=== PATIENT | female | born 1960 | race Caucasian/White ===

== ENCOUNTER 2017-08-27 02:35 | Inpatient (IN) ==
[2017-08-27] MEDS ORDERED: Ipratropium/Albuterol Neb 3 ML IH ONE (02:42)
[2017-08-27 03:02] LABS: Basophils # 0.1 K/mcL (0.0-0.2); Basophils % 0.7 %; Eosinophils # 0.2 K/mcL (0.0-0.6); Eosinophils % 2.1 %; Hematocrit 29.7 % (35.3-44.9); Hemoglobin 9.7 g/dL (11.5-15.4); Lymphocytes # 2.7 K/mcL (0.6-4.6); Lymphocytes % 27.4 %; Mean Corpuscular HGB Conc 32.7 g/dL (31.6-35.5); Mean Corpuscular Hemoglobin 30.4 pg (28.0-33.3); Mean Corpuscular Volume 93.1 fL (83.0-100.0); Mean Platelet Volume 11.4 fL (9.4-12.4); Monocytes # 1.4 K/mcL (0.0-1.3); Monocytes % 13.7 %; Neutrophils # 5.5 K/mcL (1.6-8.9); Platelet Count 108 K/mcL (140-400); Red Blood Count 3.19 M/mcL (3.82-4.97); Red Cell Distribution Width 15.9 % (11.5-14.5); Segmented Neutrophils % 55.1 %
[2017-08-27 03:23] LABS: Bilirubin,Urine Moderate (Negative); Blood,Urine Small (Negative); Clarity,Urine Turbid (Clear); Color,Urine Orange (Yellow); Glucose,Urine (UA) Normal (Normal); Ketones,Urine Trace mg/dL (Negative); Leukocyte Esterase,Urine Moderate (Negative); Nitrite,Urine Negative (Negative); PH,Urine 5.5 pH Units (5.0-8.0); Protein,Urine Trace mg/dL (Neg-Trace)
[2017-08-27 03:25] LABS: Bacteria,Urine Many per hpf (None-Few); Hyaline Casts,Urine None Seen per lpf (None-Few); Squamous Epithelial Cell,Urine Many per lpf (None-Few); WBC,Urine TNTC per hpf (0-3)
[2017-08-27 03:25] LABS: BUN/Creatinine Ratio 12 (6-26); Blood Urea Nitrogen 14 mg/dL (6-20); Calcium 8.2 mg/dL (8.6-10.3); Carbon Dioxide 27 mEq/L (23-29); Chloride 105 mEq/L (98-107); Glucose 83 mg/dL (70-105); Osmolality,Calculated 282 (280-300); Potassium 3.4 mEq/L (3.5-5.1); Sodium 136 mEq/L (136-145); Troponin I < 0.03 ng/mL (< 0.04); eGFR For African Americans 59 (> 60); eGFR For Non-African Americans 49 (> 60)
[2017-08-27 03:37] LABS: RBC,Urine 0-3 per hpf (0-3)
[2017-08-27] MEDS ORDERED: Piperacillin/Tazobactam 3.375 GM in 0.9 % Sodium Chloride Mini Bag 100 ML IVPB ONE (03:39)
[2017-08-27] MEDS ORDERED: Levofloxacin 750 MG/150 ML 750 MG/150 ML BAG IVPB ONE (03:39)
[2017-08-27 03:43] LABS: Alanine Aminotransferase 26 Units/L (7-52); Albumin 1.9 g/dL (3.5-5.7); Albumin/Globulin Ratio 0.4 (1.1-2.2); Alkaline Phosphatase 179 Units/L (34-104); Aspartate Amino Transferase 92 Units/L (13-39); Bilirubin,Direct 0.9 mg/dL (0.0-0.2); Bilirubin,Indirect 1.4 mg/dL (0.0-1.2); Bilirubin,Total 2.3 mg/dL (0.3-1.0); Globulin 4.5 g/dL (2.4-3.5); Total Protein 6.4 g/dL (6.4-8.9)
[2017-08-27 04:26] LABS: INR 1.5; Prothrombin Time 16.1 Seconds (9.4-12.1)
--- NOTE | 2017-08-27 04:56 | Emergency Department Note ---
Disposition Clinical Impression: Pneumonia Qualifiers: Pneumonia type: due to unspecified organism Laterality: unspecified laterality Lung location: unspecified part of lung Qualified Code(s): J18.9 - Pneumonia, unspecified organism UTI (urinary tract infection) Qualifiers: Urinary tract infection type: acute cystitis Hematuria presence: with hematuria Qualified Code(s): N30.01 - Acute cystitis with hematuria Disposition: Admitted As Inpatient Condition: Good Referrals: Sahra Laguna MD [Primary Care Provider] - Time of Disposition: 05:02 General Adult HPI - General Chief complaint: ED Shortness of Breath/Dyspnea Stated complaint: SOB/EDEMA Time Seen by Provider: 08/27/17 02:36 Source: patient, EMS Mode of arrival: EMS Limitations: other (limited cognitive ability) Nursing Notes Reviewed: Yes Vital Signs Reviewed: Yes - History of Present Illness HPI Narrative: 57-year-old female presenting to the emergency Department from assisted living facility for chief complaint of fluid retention and shortness of breath. Patient has known history of liver cirrhosis. Patient states she has had an increase in fluid retention for a while but today significantly got worse and she started becoming short of breath. Patient is unable to provide majority of history of present illness. She is limited cognitive ability. She is alert and oriented 2 in the room which is at patient's baseline. Patient denies any pain at this time. Pain Scale: 0 - Related Data Home Medications Medication Instructions Recorded Confirmed Benztropine Mesylate 0.5 mg PO DAILY 06/08/16 06/08/16 Duloxetine HCl [Cymbalta] 60 mg PO DAILY 06/08/16 06/08/16 Furosemide [Lasix] 40 mg PO BID 06/08/16 06/08/16 HydrOXYzine Pamoate [Vistaril] 50 mg PO TID 06/08/16 06/08/16 Naproxen Sodium [All Day Pain 220 mg PO BID 06/08/16 06/08/16 Relief] Omeprazole [PriLOSEC] 20 mg PO DAILY 06/08/16 06/08/16 Paliperidone [Paliperidone ER] 3 mg PO DAILY 06/08/16 06/08/16 Potassium Chloride [K-Tab ER] 20 meq PO DAILY 06/08/16 06/08/16 Spironolactone [Aldactone] 50 mg PO DAILY 06/08/16 06/08/16 Trazodone HCl 100 mg PO DAILY 06/08/16 06/08/16 Previous Rx's Medication Instructions Recorded Albuterol Sulfate [Proair Hfa] 1 puff IH Q4H PRN #1 inh 06/06/16 Acetylcysteine 10% 2 ml IH [id number] #30 inhsol 06/18/16 Insulin DETEMIR [Levemir] 15 unit SQ HS 14 Days [id number] 06/18/16 Insulin LISPRO [HumaLOG] 0 units SQ HS vial 06/18/16 Insulin LISPRO [HumaLOG] 0 units SQ TIDAC vial 06/18/16 Insulin LISPRO [HumaLOG] 5 units SQ TIDAC 14 Days vial 06/18/16 Ipratropium/Albuterol Neb [Duoneb] 3 ml IH [id number] #30 inhsol 06/18/16 Metoprolol [Lopressor] 25 mg PO BID #30 tablet 06/18/16 Ondansetron ODT [Zofran ODT] 4 mg SL Q6HR PRN #30 tab.rapdis 06/18/16 levoFLOXacin [Levaquin] 500 mg PO DAILY #7 tablet 06/18/16 predniSONE [PredniSONE] 20 mg PO DAILY #14 tablet 06/18/16 Allergies Allergy/AdvReac Type Severity Reaction Status Date / Time codeine AdvReac Palpitation Verified 06/08/16 18:40 s All systems ED: reviewed and negative except as stated. Respiratory: Reports: dyspnea Past Medical History - Past Medical History Attestation: Yes The following information was validated with the patient. Medical history: Reports: COPD Surgical history: Reports: cholecystectomy Psychiatric history: Reports: anxiety PEDIATRIC ORTHODONTIST history: Reports: no PEDIATRIC ORTHODONTIST history, other - Social History Smoking Status: Never smoker Smokeless Tobacco Status: No Alcohol use: Reports: none Drug use: Reports: none Physical Exam - General Limitations: no limitations General appearance: alert, in no apparent distress - Head Head exam: atraumatic, normocephalic, normal inspection - Eye Eye exam: Present: normal appearance. Absent: scleral icterus, conjunctival injection - Neck Neck exam: Present: normal inspection, full ROM. Absent: tenderness, meningismus - Chest Chest inspection: Present: normal inspection, symmetric chest wall rise. Absent : tenderness, rash - Respiratory Respiratory exam: Present: other (Decreased breath sounds bilaterally) - Cardiovascular Cardiovascular exam: Present: regular rate, normal rhythm, normal heart sounds - Abdominal Exam Abdominal exam: Present: tenderness (Diffuse mild), distention. Absent: guarding, rebound, rigidity - Extremities Exam Extremities exam: Present: full ROM, other (Bilateral 2+ pitting edema in lower extremities) - Neurological Exam Neurological exam: Present: alert - Psychiatric Psychiatric exam: Present: normal affect, normal mood - Skin Skin exam: Present: warm, dry Course Course Narrative: 57-year-old female with significant past medical history of cirrhosis presenting to the emergency department with abdominal distention, shortness of breath and fluid retention. Patient is alert and oriented 2 in the room with stable vital signs. First blood pressure completed showed hypotension but repeat blood pressure showed systolic around 100. Concern for lung pathology at this time versus CHF. We will perform basic laboratory analysis along with chest x-ray and CT of the abdomen and pelvis. Patient agrees with this plan. Disposition pending results. - Reevaluation(s) Reevaluation #1: Laboratory analysis shows urinary tract infection and possible pneumonia. We will provide the patient with vancomycin, Zosyn and Levaquin. Patient is alert and oriented 2 in the room with stable vital signs. We will plan to admit the patient at this time for pneumonia and UTI. Patient agrees with this plan. I spoke with the hospitalist on-call Dr. Almaguer who agrees to accept the patient at this time. Vital Signs Temperature 98.6 F 08/27/17 02:40 Pulse Rate 89 08/27/17 02:40 Respiratory Rate 20 08/27/17 02:40 Blood Pressure 89/62 08/27/17 02:40 O2 Sat by Pulse Oximetry 99 08/27/17 02:40 Temperature 98.6 F 08/27/17 02:40 Pulse Rate 92 08/27/17 05:00 Respiratory Rate 16 08/27/17 05:00 Blood Pressure 100/73 08/27/17 05:00 O2 Sat by Pulse Oximetry 96 08/27/17 05:00 Oxygen Delivery Oxygen Delivery Nasal Cannula Medical Decision Making - Lab Data Result diagrams: 08/27/17 02:42 08/27/17 02:42 Lab Results 08/27/17 08/27/17 08/27/17 Range/Units 02:42 02:42 02:42 WBC 9.9 (4.3-11.1) K/mcL RBC 3.19 L (3.82-4.97) M/mcL Hgb 9.7 L (11.5-15.4) g/dL Hct 29.7 L (35.3-44.9) % MCV 93.1 (83.0-100.0) fL MCH 30.4 (28.0-33.3) pg MCHC 32.7 (31.6-35.5) g/dL RDW 15.9 H (11.5-14.5) % Plt Count 108 L (140-400) K/mcL MPV 11.4 (9.4-12.4) fL Immature Gran % 1.0 (0-4) % Seg Neutrophils % 55.1 % Lymphocytes % 27.4 % Monocytes % 13.7 % Eosinophils % 2.1 % Basophils % 0.7 % Neutrophils # 5.5 (1.6-8.9) K/mcL Lymphocytes # 2.7 (0.6-4.6) K/mcL Monocytes # 1.4 H (0.0-1.3) K/mcL Eosinophils # 0.2 (0.0-0.6) K/mcL Basophils # 0.1 (0.0-0.2) K/mcL PT (9.4-12.1) Seconds INR Sodium 136 (136-145) mEq/L Potassium 3.4 L (3.5-5.1) mEq/L Chloride 105 (98-107) mEq/L Carbon Dioxide 27 (23-29) mEq/L BUN 14 (6-20) mg/dL Creatinine 1.16 (0.60-1.20) mg/dL Est GFR ( Amer) 59 L (> 60) Est GFR (Non-Af Amer) 49 L (> 60) BUN/Creatinine Ratio 12 (6-26) Glucose 83 (70-105) mg/dL Calculated Osmolality 282 (280-300) Lactic Acid (0.5-2.2) mmol/L Calcium 8.2 L (8.6-10.3) mg/dL Total Bilirubin 2.3 H (0.3-1.0) mg/dL Direct Bilirubin 0.9 H (0.0-0.2) mg/dL Indirect Bilirubin 1.4 H (0.0-1.2) mg/dL AST 92 H (13-39) Units/L ALT 26 (7-52) Units/L Alkaline Phosphatase 179 H (34-104) Units/L Troponin I < 0.03 (< 0.04) ng/mL B-Natriuretic Peptide 71 (Less than 100) pg/mL Serum Total Protein 6.4 (6.4-8.9) g/dL Albumin 1.9 L (3.5-5.7) g/dL Globulin 4.5 H (2.4-3.5) g/dL Albumin/Globulin Ratio 0.4 L (1.1-2.2) Urine Color (Yellow) Urine Clarity (Clear) Urine pH (5.0-8.0) pH Units Ur Specific [place] (1.010-1.025) Urine Protein (Neg-Trace) mg/dL Urine Glucose (UA) (Normal) mg/dL Urine Ketones (Negative) mg/dL Urine Blood (Negative) Urine Nitrite (Negative) Urine Bilirubin (Negative) Urine Urobilinogen (Normal) mg/dL Ur Leukocyte Esterase (Negative) Urine Microscopic RBC (0-3) per hpf Urine Microscopic WBC (0-3) per hpf Ur Squamous Epith Cells (None-Few) per lpf Urine Bacteria (None-Few) per hpf Hyaline Casts (None-Few) per lpf Urine Yeast Ur Culture Indicated? (NO) 08/27/17 08/27/17 08/27/17 Range/Units 02:45 02:45 02:58 WBC (4.3-11.1) K/mcL RBC (3.82-4.97) M/mcL Hgb (11.5-15.4) g/dL Hct (35.3-44.9) % MCV (83.0-100.0) fL MCH (28.0-33.3) pg MCHC (31.6-35.5) g/dL RDW (11.5-14.5) % Plt Count (140-400) K/mcL MPV (9.4-12.4) fL Immature Gran % (0-4) % Seg Neutrophils % % Lymphocytes % % Monocytes % % Eosinophils % % Basophils % % Neutrophils # (1.6-8.9) K/mcL Lymphocytes # (0.6-4.6) K/mcL Monocytes # (0.0-1.3) K/mcL Eosinophils # (0.0-0.6) K/mcL Basophils # (0.0-0.2) K/mcL PT 16.1 H (9.4-12.1) Seconds INR 1.5 Sodium (136-145) mEq/L Potassium (3.5-5.1) mEq/L Chloride (98-107) mEq/L Carbon Dioxide (23-29) mEq/L BUN (6-20) mg/dL Creatinine (0.60-1.20) mg/dL Est GFR ( Amer) (> 60) Est GFR (Non-Af Amer) (> 60) BUN/Creatinine Ratio (6-26) Glucose (70-105) mg/dL Calculated Osmolality (280-300) Lactic Acid 1.6 (0.5-2.2) mmol/L Calcium (8.6-10.3) mg/dL Total Bilirubin (0.3-1.0) mg/dL Direct Bilirubin (0.0-0.2) mg/dL Indirect Bilirubin (0.0-1.2) mg/dL AST (13-39) Units/L ALT (7-52) Units/L Alkaline Phosphatase (34-104) Units/L Troponin I (< 0.04) ng/mL B-Natriuretic Peptide (Less than 100) pg/mL Serum Total Protein (6.4-8.9) g/dL Albumin (3.5-5.7) g/dL Globulin (2.4-3.5) g/dL Albumin/Globulin Ratio (1.1-2.2) Urine Color [place] A (Yellow) Urine Clarity [place] A (Clear) Urine pH 5.5 (5.0-8.0) pH Units Ur Specific [place] 1.020 (1.010-1.025) Urine Protein Trace (Neg-Trace) mg/dL Urine Glucose (UA) Normal (Normal) mg/dL Urine Ketones Trace H (Negative) mg/dL Urine Blood Small H (Negative) Urine Nitrite Negative (Negative) Urine Bilirubin Moderate H (Negative) Urine Urobilinogen 2.0 H (Normal) mg/dL Ur Leukocyte Esterase Moderate H (Negative) Urine Microscopic RBC 0-3 (0-3) per hpf Urine Microscopic WBC TNTC H (0-3) per hpf Ur Squamous Epith Cells Many H (None-Few) per lpf Urine Bacteria Many H (None-Few) per hpf Hyaline Casts None Seen (None-Few) per lpf Urine Yeast Test Not Performed Ur Culture Indicated? NO. (NO) - EKG Data EKG #1 EKG attestation: Yes I reviewed and interpreted this EKG. EKG results narrative: Sinus rhythm. 91 bpm. MD interval 137, QRS 92, QTc 443. No signs of acute ST segment elevation or ischemia noted. Compared to previous EKG completed on no significant changes noted. Attestation Statement - Attestation Attestation: I examined this patient and my medical decision-making was reviewed with the Resident Physician. I agree with the documented findings, disposition and treatment plan as described except to the extent set forth below. Patient to the ED with a chief complaint of shortness of breath. Abdominal swelling. Fluid retention. Got worse tonight. She was brought in from shelter facility. Patient states she is just a short-term until she gets stronger. On examination she is in no acute distress. Her lung sounds are diminished. Her abdomen is firm. Nontender. She does have some ecchymotic areas. Plan. The patient's workup shows a pneumonia and a UTI. Her initial blood pressure was low, all other checks after this had been normal tensive without IV hydration. I believe that first reading was false. She is not felt to have septic shock. She is covered with antibiotics. She will not receive a 3 L fluid bolus secondary to her fluid retention and ascites. I fear this would put her into overt pulmonary edema. Patient is admitted to medicine. 35 minutes of critical care exclusive of separately billable procedures.
[2017-08-27] MEDS ORDERED: Naloxone 0.4 MG/ML INJ IVP PRN (07:34)
[2017-08-27] MEDS ORDERED: Dextrose Gel 15 GM/37.5 ML TUBE PO PRN ×2 (07:39)
[2017-08-27] MEDS ORDERED: D5% in Water 1,000 ML IVC PRN (07:39)
[2017-08-27] MEDS ORDERED: *HR* Dextrose 50 % in Water (Syg) 50 ML SYRINGE IVP PRN (07:39)
--- NOTE | 2017-08-27 08:24 | Internal Med History&Physical ---
Date of Encounter: 08/27/17 Time of Encounter: 07:45 Assessment and Plan (1) Acute delirium Current visit: Yes Status: Acute Admit the pt into Tele concerned for acute hepatic encephalopathy will check stat ammonia level now.. If it's high will start her on Lactulose (2) Volume overload Current visit: Yes Status: Acute She does have significant volume overload with the pleural effusion, ascities, and b/l LE edema mostly due to cirrhosis of liver started her on IV Lasix 40 mg b.i.d. and Aldactone 25 mg PO daily strict I & Os Qualifiers: Qualified Code(s): E87.70 - Fluid overload, unspecified (3) Pneumonia Current visit: Yes Status: Acute Reviewed a chest x-ray which showed left lower lobe pneumonia concerning for aspiration pneumonia started on empirical antibiotic Levaquin Qualifiers: Pneumonia type: aspiration pneumonia Aspiration pneumonia type: due to gastric secretions Laterality: left Lung location: lower lobe of lung Qualified Code(s): J69.0 - Pneumonitis due to inhalation of food and vomit (4) UTI (urinary tract infection) Current visit: Yes Status: Acute UA looks abnormal with bacteria and esterase positive started on empirical antibiotic Levaquin Qualifiers: Urinary tract infection type: acute cystitis Hematuria presence: without hematuria Qualified Code(s): N30.00 - Acute cystitis without hematuria (5) Liver cirrhosis Current visit: No Status: Chronic Seems to be due to chronic viral hepatitis her Hep Bs Ag, Hep B core IgM and Hep C Ab are reactive from 01/05/16 Will consult G.I. for further eval Qualifiers: Hepatic cirrhosis type: unspecified hepatic cirrhosis Ascites presence: without ascites Qualified Code(s): K74.60 - Unspecified cirrhosis of liver (6) Chronic respiratory failure with hypoxia Current visit: Yes Status: Acute currently on 2 lit O2 (7) COPD (chronic obstructive pulmonary disease) Current visit: Yes Status: Acute Her SOB is due to volume overload.. No signs of COPD exacerbation cont Duoneb + O2 Qualifiers: Qualified Code(s): J44.9 - Chronic obstructive pulmonary disease, unspecified (8) Thrombocytopenia Current visit: Yes Status: Acute chronic due to Cirrhosis of liver (9) Elevated LFTs Current visit: Yes Status: Acute due to Cirrhosis of liver will trend on LFT's (10) DM2 (diabetes mellitus, type 2) Current visit: Yes Status: Acute on ISS Qualifiers: Qualified Code(s): E11.9 - Type 2 diabetes mellitus without complications Internal Medicine - H&P: HPI Chief complaint: Shortness of breath / volume overload Admitted From: Emergency Dept Plans for Post Hospital Care: Home History of present illness: Ms. Tirado is a 57 year old female with a known past medical history of COPD, chronic home oxygen dependent at 2 lit, hypertension, diabetes type II and cirrhosis of the liver patient who is a long-term resident at assisted-living facility was brought into the ER complaining that patient has been having progressively worsening shortness of breath, as well as she gained a lot of weight lately. When I examined the patient she is alert, awake and Oriented to self. She did complaining about increasing her abdominal wall girth, and swelling, edema in both lower legs. She denied of any chest pain. She denied off any cough with expectoration. Her chest x-ray showed left lower lobe pneumonia. Her CT of the abdomen and pelvis showed cirrhosis of liver with ascites and Left pleural effusion. Past Med Surg Social Fam HX - Past Medical History Medical history: cirrhosis, COPD, liver disease Psychiatric history: anxiety - Past Surgical History Surgical History: cholecystectomy - Social History Smoking Status: Light tobacco smoker Smokeless Tobacco Status: No Alcohol use: none Drug use: none - Family History Mother Living Status: Hx Family Cancer: Yes Internal Medicine - H&P: Meds Albuterol Sulfate [Proair Hfa] 1 puff IH Q4H PRN #1 inh 06/06/16 [Rx] Benztropine Mesylate 0.5 mg PO DAILY 06/08/16 [History] Duloxetine HCl [Cymbalta] 60 mg PO DAILY 06/08/16 [History] Furosemide [Lasix] 40 mg PO BID 06/08/16 [History] HydrOXYzine Pamoate [Vistaril] 50 mg PO TID 06/08/16 [History] Naproxen Sodium [All Day Pain Relief] 220 mg PO BID 06/08/16 [History] Omeprazole [PriLOSEC] 20 mg PO DAILY 06/08/16 [History] Paliperidone [Paliperidone ER] 3 mg PO DAILY 06/08/16 [History] Potassium Chloride [K-Tab ER] 20 meq PO DAILY 06/08/16 [History] Spironolactone [Aldactone] 50 mg PO DAILY 06/08/16 [History] Trazodone HCl 100 mg PO DAILY 06/08/16 [History] Acetylcysteine 10% 2 ml IH [id number] #30 inhsol 06/18/16 [Rx] Insulin DETEMIR [Levemir] 15 unit SQ HS 14 Days [id number] 06/18/16 [Rx] Insulin LISPRO [HumaLOG] 0 units SQ HS vial 06/18/16 [Rx] Insulin LISPRO [HumaLOG] 0 units SQ TIDAC vial 06/18/16 [Rx] Insulin LISPRO [HumaLOG] 5 units SQ TIDAC 14 Days vial 06/18/16 [Rx] Ipratropium/Albuterol Neb [Duoneb] 3 ml IH [id number] #30 inhsol 06/18/16 [Rx] Metoprolol [Lopressor] 25 mg PO BID #30 tablet 06/18/16 [Rx] Ondansetron ODT [Zofran ODT] 4 mg SL Q6HR PRN #30 tab.rapdis 06/18/16 [Rx] levoFLOXacin [Levaquin] 500 mg PO DAILY #7 tablet 06/18/16 [Rx] predniSONE [PredniSONE] 20 mg PO DAILY #14 tablet 06/18/16 [Rx] 3 Allergy/AdvReac Type Severity Reaction Status Date / Time codeine AdvReac Palpitation Verified 06/08/16 18:40 s All Systems PM: A 10-system review of systems was performed and is negative for pertinent findings except as documented above in the HPI. Review of systems: All the systems are reviewed everything is benign except the systems and symptoms I mentioned in the history of present illness - Constitutional Vitals: Temp Pulse Resp BP Pulse Ox 97.9 F 91 14 97/66 96 08/27/17 07:36 08/27/17 07:36 08/27/17 07:36 08/27/17 07:36 08/27/17 08:13 General appearance: Present: cooperative, A&O X 1, mild distress - Head Head exam: Present: atraumatic, normal inspection - Neck Neck exam general surgery: Present: supple - Respiratory Respiratory exam: Present: decreased breath sounds, wheezes (mild). Absent: rales, respiratory distress, rhonchi - Cardiovascular Cardiovascular exam: Present: RRR, +S1, +S2. Absent: tachycardia - GI/Abdominal GI/Abdominal exam: Present: distended, normal bowel sounds, soft. Absent: guarding, rebound, rigid, tenderness - Extremities Exam Extremities exam: Present: pedal edema (2-3+ pitting edema). Absent: calf tenderness, tenderness - Back Exam Back exam: Absent: CVA tenderness (L), CVA tenderness (R) - Neurological Exam Neurological exam: Present: alert, altered - Psychiatric Additional comments: Looks confused - Skin Skin exam: Absent: rash Internal Med - H&P Results - Labs CBC & Chem 7: 08/27/17 02:42 08/27/17 02:42
[2017-08-27] MEDS: Spironolactone 25 MG TABLET PO SCH (08:34)
[2017-08-27] MEDS: Furosemide 40 MG/4 ML VIAL IVP SCH ×2 (08:34→16:52)
[2017-08-27] MEDS: Insulin LISPRO 300 UNITS/3 ML VIAL SQ SCH ×3 (11:30→20:54)
[2017-08-27] MEDS: *HR* OxyCODONE Immed Rel 5 MG TABLET PO PRN ×2 (14:56→20:59)
[2017-08-28] MEDS: Insulin LISPRO 300 UNITS/3 ML VIAL SQ SCH ×4 (07:17→21:00)
[2017-08-28] MEDS: Furosemide 40 MG/4 ML VIAL IVP SCH ×2 (07:17→18:24)
[2017-08-28] MEDS: Spironolactone 25 MG TABLET PO SCH (07:17)
[2017-08-28] MEDS: *HR* OxyCODONE Immed Rel 5 MG TABLET PO PRN ×2 (07:17→16:44)
[2017-08-28] MEDS: Levofloxacin 500 MG/100 ML 500 MG/100 ML BAG IVPB SCH (07:17)
[2017-08-28 08:01] LABS: Basophils # 0.1 K/mcL (0.0-0.2); Basophils % 0.5 %; Eosinophils # 0.2 K/mcL (0.0-0.6); Eosinophils % 1.5 %; Hematocrit 32.3 % (35.3-44.9); Hemoglobin 10.6 g/dL (11.5-15.4); Immature Granulocytes % 0.8 % (0-4); Lymphocytes # 2.8 K/mcL (0.6-4.6); Lymphocytes % 18.7 %; Mean Corpuscular HGB Conc 32.8 g/dL (31.6-35.5); Mean Corpuscular Hemoglobin 30.4 pg (28.0-33.3); Mean Corpuscular Volume 92.6 fL (83.0-100.0); Mean Platelet Volume 11.1 fL (9.4-12.4); Monocytes % 13.1 %; Platelet Count 126 K/mcL (140-400); Red Blood Count 3.49 M/mcL (3.82-4.97); Red Cell Distribution Width 15.9 % (11.5-14.5); Segmented Neutrophils % 65.4 %
[2017-08-28 08:02] LABS: Neutrophils # 9.9 K/mcL (1.6-8.9)
[2017-08-28 08:16] LABS: Albumin/Globulin Ratio 0.4 (1.1-2.2); Bilirubin,Total 3.4 mg/dL (0.3-1.0); Calcium 8.4 mg/dL (8.6-10.3); Chol/HDL Ratio 8.6 (0-4.9); Globulin 5.3 g/dL (2.4-3.5); Magnesium 1.8 mg/dL (1.6-2.6); Potassium 3.5 mEq/L (3.5-5.1); Total Protein 7.3 g/dL (6.4-8.9)
--- NOTE | 2017-08-28 09:46 | Internal Med Progress Note ---
<Gerardo Bach - Last Filed: 08/28/17 13:37> Date of Encounter: 08/28/17 Time of Encounter: 09:44 - Assessment and plan (1) Volume overload Current Visit: Yes Status: Acute Assessment and plan: Patient has significant fluid overload likely secondary to cirrhosis of the liver Continue with Lasix twice a day and Aldactone daily. Will add a third dose of lasix today Continue to monitor patient's I's & O's Qualifiers: Hypervolemia type: unspecified Qualified Code(s): E87.70 - Fluid overload, unspecified (2) Pneumonia Current Visit: Yes Status: Acute Assessment and plan: There is concern for pneumonia due to chest x-ray findings that showed a possible left lower lobe pneumonia WBC 15.1 increased from 9.9 Continue Levaquin daily #2 Qualifiers: Pneumonia type: aspiration pneumonia Aspiration pneumonia type: due to gastric secretions Laterality: left Lung location: lower lobe of lung Qualified Code(s): J69.0 - Pneumonitis due to inhalation of food and vomit (3) Acute delirium Current Visit: Yes Status: Acute Assessment and plan: Patient was reported to have acute delirium on admission to the hospital This seems to be improving. Patient is oriented 3 Ammonia is evelated at 75. Will give lactulose. (4) Chronic respiratory failure with hypoxia Current Visit: Yes Status: Acute Assessment and plan: Patient uses 1-2 L of oxygen at home intermittently Continue with oxygen supplementation here in the hospital (5) COPD (chronic obstructive pulmonary disease) Current Visit: Yes Status: Chronic Assessment and plan: Patient has history of COPD I do not feel that this patient is an COPD exacerbation I feel that the patient shortness of breath is likely secondary to being fluid overloaded. Continue with oxygen supplementation Qualifiers: COPD type: unspecified COPD Qualified Code(s): J44.9 - Chronic obstructive pulmonary disease, unspecified (6) DM2 (diabetes mellitus, type 2) Current Visit: No Status: Chronic Assessment and plan: Patient has known history of type 2 diabetes Continue sliding scale insulin here in the hospital. 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 shelter insulin use status Diabetes mellitus complication status: with unspecified complications Qualified Code(s): E11.8 - Type 2 diabetes mellitus with unspecified complications; Z79.4 - [facility] (current) use of insulin; Z79.4 - [facility] ( current) use of insulin; Z79.4 - [facility] (current) use of insulin; 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 (7) Elevated LFTs Current Visit: Yes Status: Acute Assessment and plan: Patient does have some elevated AST of 92 Elevated total bilirubin of 3.4 which is up from 2.3 Patient has elevated ammonia level of 75. (8) UTI (urinary tract infection) Current Visit: Yes Status: Acute Assessment and plan: Patient urinalysis was negative for nitrites but did have leukocyte esterase and bacteria Patient is being treated with Levaquin which will cover for a urinary tract infection. Qualifiers: Urinary tract infection type: acute cystitis Hematuria presence: without hematuria Qualified Code(s): N30.00 - Acute cystitis without hematuria (9) Liver cirrhosis Current Visit: No Status: Chronic Assessment and plan: Chronic issue Likely secondary to viral hepatitis Qualifiers: Hepatic cirrhosis type: unspecified hepatic cirrhosis Ascites presence: without ascites Qualified Code(s): K74.60 - Unspecified cirrhosis of liver (10) Thrombocytopenia Current Visit: Yes Status: Acute Assessment and plan: Current platelet count is 126 thombocytopenia likely secondary to the patient's cirrhosis (11) DVT prophylaxis Current Visit: Yes Status: Acute Assessment and plan: Intermittent pneumatic compression for DVT prophylaxis. - Subjective Interval history: Patient states that she feels weak and swollen. She states that the symptoms have been going on for a while. She states that she feels like she has gained a significant amount weight in a short period of time. Patient does state that she has some mild shortness of breath. - Constitutional Vitals: Temp Pulse Resp BP Pulse Ox 98.2 F 111 16 155/84 95 08/28/17 06:57 08/28/17 06:57 08/28/17 06:57 08/28/17 06:57 08/28/17 08:00 General appearance: Present: cooperative, mild distress, answers questions appropriately - Head Head exam: Present: atraumatic, normocephalic - Neck Neck exam general surgery: Present: full ROM, normal inspection, trachea midline - Respiratory Respiratory exam: Present: wheezes (Bilaterally) - Cardiovascular Cardiovascular exam: Present: +S1, +S2, tachycardia - GI/Abdominal GI/Abdominal exam: Present: distended, no peritoneal signs. Absent: tenderness - Extremities Exam Extremities exam: Present: pedal edema (3+ pitting edema bilateral lower extremities. Patient also has edema to the left upper extremity.), warm. Absent: tenderness - Neurological Exam Neurological exam: Present: alert, no focal deficits. Absent: facial droop, speech deficit - Psychiatric Psychiatric exam: Present: normal affect, normal mood - Skin Skin exam: Present: dry, intact, warm Internal Medicine: Result - Labs CBC & Chem 7: 08/28/17 07:41 08/28/17 07:41 Labs: Short CBC 08/28/17 Range/Units 07:41 WBC 15.1 H D (4.3-11.1) K/mcL Hgb 10.6 L (11.5-15.4) g/dL Hct 32.3 L (35.3-44.9) % Plt Count 126 L (140-400) K/mcL Neutrophils # 9.9 H (1.6-8.9) K/mcL BMP 08/28/17 07:41 Sodium 131 L Potassium 3.5 Chloride 100 Carbon Dioxide 27 BUN 15 Creatinine 1.19 Glucose 129 H Calcium 8.4 L Liver Function 08/28/17 Range/Units 07:41 Total Bilirubin 3.4 H (0.3-1.0) mg/dL AST 92 H (13-39) Units/L ALT 28 (7-52) Units/L Alkaline Phosphatase 182 H (34-104) Units/L Albumin 2.0 L (3.5-5.7) g/dL - ABG Interpretation ABG results: PT/INR, D-dimer PT 16.1 Seconds (9.4-12.1) H 08/27/17 02:45 Consult Discharge Plan - Plan Referrals: Sahra Laguna MD [Primary Care Provider] - <Negro Zavala - Last Filed: 08/28/17 17:44> Date of Encounter: 08/28/17 - Assessment and plan (1) Acute hepatic encephalopathy Current Visit: Yes Status: Acute (2) Liver cirrhosis Current Visit: No Status: Chronic Qualifiers: Hepatic cirrhosis type: unspecified hepatic cirrhosis Ascites presence: with ascites Qualified Code(s): K74.60 - Unspecified cirrhosis of liver (3) Anasarca Current Visit: Yes Status: Acute (4) Pneumonia Current Visit: Yes Status: Acute Qualifiers: Pneumonia type: aspiration pneumonia Aspiration pneumonia type: due to gastric secretions Laterality: left Lung location: lower lobe of lung Qualified Code(s): J69.0 - Pneumonitis due to inhalation of food and vomit (5) COPD (chronic obstructive pulmonary disease) Current Visit: Yes Status: Chronic Qualifiers: COPD type: unspecified COPD Qualified Code(s): J44.9 - Chronic obstructive pulmonary disease, unspecified (6) Chronic respiratory failure with hypoxia Current Visit: Yes Status: Acute (7) DM2 (diabetes mellitus, type 2) Current Visit: No Status: Chronic Qualifiers: 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: with biomedical instrument technician use Diabetes mellitus complication status: with hyperglycemia Qualified Code(s): E11.65 - Type 2 diabetes mellitus with hyperglycemia; 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; 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; Z79.4 - [employer] senior sergeant (current ) use of insulin; Z79.4 - [facility] (current) use of insulin (8) Thrombocytopenia Current Visit: Yes Status: Acute - Constitutional Vitals: Temp Pulse Resp BP Pulse Ox 98.2 F 137 16 130/83 93 08/28/17 16:40 08/28/17 16:40 08/28/17 16:40 08/28/17 16:40 08/28/17 16:40 Internal Medicine: Result - Labs CBC & Chem 7: 08/28/17 07:41 08/28/17 07:41 Labs: Short CBC 08/28/17 Range/Units 07:41 WBC 15.1 H D (4.3-11.1) K/mcL Hgb 10.6 L (11.5-15.4) g/dL Hct 32.3 L (35.3-44.9) % Plt Count 126 L (140-400) K/mcL Neutrophils # 9.9 H (1.6-8.9) K/mcL BMP 08/28/17 07:41 Sodium 131 L Potassium 3.5 Chloride 100 Carbon Dioxide 27 BUN 15 Creatinine 1.19 Glucose 129 H Calcium 8.4 L Liver Function 08/28/17 Range/Units 07:41 Total Bilirubin 3.4 H (0.3-1.0) mg/dL AST 92 H (13-39) Units/L ALT 28 (7-52) Units/L Alkaline Phosphatase 182 H (34-104) Units/L Albumin 2.0 L (3.5-5.7) g/dL - ABG Interpretation ABG results: PT/INR, D-dimer PT 16.1 Seconds (9.4-12.1) H 08/27/17 02:45 - Attending Attestation I examined this patient and my medical decision-making was reviewed with the Resident Physician on 08/28/17. I agree with the documented findings, disposition and treatment plan as described except to the extent set forth below. Ms Tirado is currently admitted for anasarca related to cirrhosis. She remains moderate to high risk due to potential for worsening respiratory and clinical status. Ms Tirado is still very edematous. She is having some dyspnea. She is tachycardic as well. No CP currently but says she has had some at times. No fever or chills. Exam Alert. Mod resp distress Mucus membranes dry Heart distant Lungs diminished Abd distended. Soft Edema present I/P 1. Anasarca due to cirrhosis 2. Ascites 3. Cirrhosis 4. Sinus tach, dyspnea - check CTA. Further diagnoses and plan as above.
[2017-08-28] MEDS: Ondansetron 4 MG/2 ML VIAL IVP PRN (12:01)
[2017-08-28] MEDS ORDERED: Furosemide 40 MG/4 ML VIAL IVP ONE (13:36)
[2017-08-28] MEDS: Lactulose Oral Soln 20 GM/30 ML UDC PO SCH ×2 (13:54→21:00)
[2017-08-28] MEDS ORDERED: Albumin 25% 12.5gm/50mL 12.5 GM/50 ML IV.SOLN IVPB ONE (16:45)
[2017-08-29] MEDS: Piperacillin/Tazobactam 3.375 GM in 0.9 % Sodium Chloride Mini Bag 100 ML IVPB SCH ×3 (00:55→20:07)
[2017-08-29] MEDS ORDERED: Piperacillin/Tazobactam 3.375 GM in 0.9 % Sodium Chloride Mini Bag 100 ML IVPB SCH (04:00)
[2017-08-29 06:04] LABS: Basophils % 0.3 %; Hemoglobin 9.8 g/dL (11.5-15.4); Mean Platelet Volume 11.5 fL (9.4-12.4); Platelet Count 119 K/mcL (140-400)
[2017-08-29 06:06] LABS: Basophils # 0.1 K/mcL (0.0-0.2); Eosinophils # 0.1 K/mcL (0.0-0.6); Eosinophils % 0.5 %; Hematocrit 29.7 % (35.3-44.9); Immature Granulocytes % 1.1 % (0-4); Lymphocytes # 3.2 K/mcL (0.6-4.6); Mean Corpuscular Hemoglobin 30.4 pg (28.0-33.3); Mean Corpuscular Volume 92.2 fL (83.0-100.0); Monocytes # 2.8 K/mcL (0.0-1.3); Monocytes % 10.5 %; Neutrophils # 19.9 K/mcL (1.6-8.9); Red Blood Count 3.22 M/mcL (3.82-4.97); Red Cell Distribution Width 15.9 % (11.5-14.5); Segmented Neutrophils % 75.6 %
[2017-08-29 06:59] LABS: Platelet Estimate Decreased (Normal)
[2017-08-29] MEDS: Furosemide 40 MG/4 ML VIAL IVP SCH ×2 (08:25→20:08)
[2017-08-29] MEDS: Lactulose Oral Soln 20 GM/30 ML UDC PO SCH ×3 (08:26→20:54)
[2017-08-29] MEDS: Spironolactone 25 MG TABLET PO SCH ×2 (08:26→20:07)
[2017-08-29] MEDS: Levofloxacin 500 MG/100 ML 500 MG/100 ML BAG IVPB SCH (08:28)
[2017-08-29] MEDS: Insulin LISPRO 300 UNITS/3 ML VIAL SQ SCH ×4 (08:29→20:51)
[2017-08-29] MEDS: *HR* OxyCODONE Immed Rel 5 MG TABLET PO PRN (08:31)
[2017-08-29 08:46] LABS: Alanine Aminotransferase 23 Units/L (7-52); Albumin 2.1 g/dL (3.5-5.7); Albumin/Globulin Ratio 0.4 (1.1-2.2); Alkaline Phosphatase 162 Units/L (34-104); Aspartate Amino Transferase 72 Units/L (13-39); BUN/Creatinine Ratio 14 (6-26); Bilirubin,Total 4.8 mg/dL (0.3-1.0); Blood Urea Nitrogen 15 mg/dL (6-20); Calcium 8.5 mg/dL (8.6-10.3); Carbon Dioxide 28 mEq/L (23-29); Chloride 96 mEq/L (98-107); Globulin 5.1 g/dL (2.4-3.5); Glucose 101 mg/dL (70-105); Osmolality,Calculated 269 (280-300); Potassium 3.8 mEq/L (3.5-5.1); Sodium 129 mEq/L (136-145); Total Protein 7.2 g/dL (6.4-8.9); eGFR For African Americans > 60 (> 60); eGFR For Non-African Americans 52 (> 60)
[2017-08-29 09:32] LABS: INR 1.8; Prothrombin Time 19.7 Seconds (9.4-12.1)
[2017-08-29 12:52] LABS: INR 1.8; Prothrombin Time 19.7 Seconds (9.4-12.1)
--- NOTE | 2017-08-29 18:19 | Internal Med Progress Note ---
Date of Encounter: 08/29/17 Time of Encounter: 11:00 - Assessment and plan (1) Acute hepatic encephalopathy Current Visit: Yes Status: Acute Assessment and plan: Slight improvement in ammonia today. Continue Lactulose (2) Liver cirrhosis Current Visit: No Status: Chronic Assessment and plan: Chronic issue Likely secondary to viral hepatitis Qualifiers: Hepatic cirrhosis type: unspecified hepatic cirrhosis Ascites presence: with ascites Qualified Code(s): K74.60 - Unspecified cirrhosis of liver (3) Anasarca Current Visit: Yes Status: Acute Assessment and plan: She remains markedly volume overloaded with ascites as well. Needs paracentesis but INR too high. Will try to lower this today and then get fluid. (4) Pneumonia Current Visit: Yes Status: Acute Assessment and plan: There is concern for pneumonia due to chest x-ray findings that showed a possible left lower lobe pneumonia WBC increased again today. Currently on Zosyn and Levaquin. Will stop Levaquin and add Vancomycin. Qualifiers: Pneumonia type: aspiration pneumonia Aspiration pneumonia type: due to gastric secretions Laterality: left Lung location: lower lobe of lung Qualified Code(s): J69.0 - Pneumonitis due to inhalation of food and vomit (5) COPD (chronic obstructive pulmonary disease) Current Visit: Yes Status: Chronic Assessment and plan: Patient has history of COPD I do not feel that this patient is an COPD exacerbation I feel that the patient shortness of breath is likely secondary to being fluid overloaded. Continue with oxygen supplementation Qualifiers: COPD type: unspecified COPD Qualified Code(s): J44.9 - Chronic obstructive pulmonary disease, unspecified (6) Chronic respiratory failure with hypoxia Current Visit: Yes Status: Acute Assessment and plan: Patient uses 1-2 L of oxygen at home intermittently Continue with oxygen supplementation here in the hospital (7) DM2 (diabetes mellitus, type 2) Current Visit: No Status: Chronic Assessment and plan: Patient has known history of type 2 diabetes Continue sliding scale insulin here in the hospital. Qualifiers: Diabetes mellitus penitentiary insulin use: with penitentiary use Diabetes mellitus complication status: with hyperglycemia Qualified Code(s): E11.65 - Type 2 diabetes mellitus with hyperglycemia; Z79.4 - alf (current) use of insulin; Z79.4 - alf (current) use of insulin; Z79.4 - alf (current ) use of insulin; Z79.4 - alf (current) use of insulin (8) Thrombocytopenia Current Visit: Yes Status: Chronic Assessment and plan: Current platelet count is 126 thombocytopenia likely secondary to the patient's cirrhosis (9) Coagulopathy Current Visit: Yes Status: Chronic Assessment and plan: Due to cirrhosis - Subjective Interval history: Ms Tirado is currently admitted for volume overload related to cirrhosis. Her WBC has increased today. She remains moderate to high risk due to potential for worsening clinical status. Ms Tirado is somewhat less confused today. She is still very volume overloaded. She has ascites. Denies pain. Heart rate has been up and down but BP OK. No CP today. - Constitutional Vitals: Temp Pulse Resp BP Pulse Ox 99.0 F 68 16 130/70 92 08/29/17 16:03 08/29/17 16:03 08/29/17 16:03 08/29/17 16:03 08/29/17 15:35 General appearance: Present: cooperative, answers questions appropriately - Head Head exam: Present: normocephalic - Eye Eye exam: Present: conjuntiva pink - ENT ENT exam: Present: mucous membranes dry - Respiratory Respiratory exam: Present: decreased breath sounds, rhonchi. Absent: rales, wheezes - Cardiovascular Cardiovascular exam: Present: tachycardia Additional comments: Regular and tachycardic - GI/Abdominal GI/Abdominal exam: Present: distended, hyperactive bowel sounds, soft. Absent: tenderness Additional comments: Ascites - Extremities Exam Extremities exam: Present: warm. Absent: tenderness Additional comments: Edema bilaterally - Neurological Exam Neurological exam: Present: alert, no focal deficits - Skin Skin exam: Present: dry, warm Internal Medicine: Result - Labs CBC & Chem 7: 08/29/17 05:46 08/29/17 08:13 Labs: Short CBC 08/29/17 Range/Units 05:46 WBC 26.3 H D (4.3-11.1) K/mcL Hgb 9.8 L (11.5-15.4) g/dL Hct 29.7 L (35.3-44.9) % Plt Count 119 L (140-400) K/mcL Neutrophils # 19.9 H (1.6-8.9) K/mcL BMP 08/29/17 08:13 Sodium 129 L Potassium 3.8 Chloride 96 L Carbon Dioxide 28 BUN 15 Creatinine 1.10 Glucose 101 Calcium 8.5 L Liver Function 08/29/17 Range/Units 08:13 Total Bilirubin 4.8 H (0.3-1.0) mg/dL AST 72 H (13-39) Units/L ALT 23 (7-52) Units/L Alkaline Phosphatase 162 H (34-104) Units/L Albumin 2.1 L (3.5-5.7) g/dL - ABG Interpretation ABG results: PT/INR, D-dimer PT 19.7 Seconds (9.4-12.1) H 08/29/17 12:10 Consult Discharge Plan - Plan Referrals: Sahra Laguna MD [Primary Care Provider] -
[2017-08-29] MEDS ORDERED: *HR* Phytonadione 5 MG TABLET PO ONE (18:31)
--- NOTE | 2017-08-29 19:19 | Electrocardiograph Report ---
[place] [id number] Test Date: 2017-08-27 Pat Name: Daisy Tirado Department: 104 Room: 3A Gender: F [employer] Worker: SHUN : 1960 Requested By: Myrtle March Order Number: [id number] Reading MD: Veto Chaves MD Measurements Intervals [place] Rate: 91 P: 46 [place]: 137 QRS: 53 QRSD: 92 T: -1 QT: 394 QTc: 443 Interpretive Statements SINUS RHYTHM Electronically Signed On 08-29-2017 19:17:36 EDT by Veto Chaves MD
[2017-08-29] MEDS: 0.9 % Sodium Chloride 250 ML IVC SCH (20:09)
--- NOTE | 2017-08-29 20:12 | Electrocardiograph Report ---
[place] [id number] Test Date: 2017-08-28 Pat Name: Daisy Tirado Department: 115 Room: 3A Gender: F Physicist [place]: : 1960 Requested By: Gerardo Bach Order Number: [id number] Reading MD: Veto Chaves MD Measurements Intervals [place] Rate: 138 P: 59 [place]: 135 QRS: 48 QRSD: 86 T: 96 QT: 329 QTc: 410 Interpretive Statements SINUS TACHYCARDIA BASELINE ARTIFACT COMPLICATES ACCURATE INTERPRETATION Electronically Signed On 08-29-2017 20:11:25 EDT by Veto Chaves MD
[2017-08-29] MEDS: traZODone 50 MG TABLET PO SCH (21:01)
[2017-08-30] MEDS: Piperacillin/Tazobactam 3.375 GM in 0.9 % Sodium Chloride Mini Bag 100 ML IVPB SCH ×3 (03:27→20:09)
[2017-08-30 05:27] LABS: Basophils # 0.1 K/mcL (0.0-0.2); Basophils % 0.4 %; Eosinophils # 0.2 K/mcL (0.0-0.6); Eosinophils % 1.6 %; Hemoglobin 8.6 g/dL (11.5-15.4); Immature Granulocytes % 0.8 % (0-4); Lymphocytes # 2.5 K/mcL (0.6-4.6); Lymphocytes % 16.9 %; Mean Corpuscular HGB Conc 31.9 g/dL (31.6-35.5); Mean Corpuscular Hemoglobin 30.2 pg (28.0-33.3); Mean Corpuscular Volume 94.7 fL (83.0-100.0); Mean Platelet Volume 10.9 fL (9.4-12.4); Monocytes % 13.8 %; Neutrophils # 9.7 K/mcL (1.6-8.9); Nucleated Red Blood Cells 0.1 /100 WBC (0); Platelet Count 111 K/mcL (140-400); Red Blood Count 2.85 M/mcL (3.82-4.97); Red Cell Distribution Width 15.9 % (11.5-14.5); Segmented Neutrophils % 66.5 %
[2017-08-30 05:29] LABS: INR 1.7; Prothrombin Time 18.7 Seconds (9.4-12.1)
[2017-08-30 05:45] LABS: Alanine Aminotransferase 17 Units/L (7-52); Albumin/Globulin Ratio 0.4 (1.1-2.2); Alkaline Phosphatase 140 Units/L (34-104); Aspartate Amino Transferase 50 Units/L (13-39); BUN/Creatinine Ratio 13 (6-26); Bilirubin,Total 3.7 mg/dL (0.3-1.0); Blood Urea Nitrogen 13 mg/dL (6-20); Calcium 8.4 mg/dL (8.6-10.3); Carbon Dioxide 30 mEq/L (23-29); Chloride 100 mEq/L (98-107); Globulin 4.5 g/dL (2.4-3.5); Glucose 109 mg/dL (70-105); Osmolality,Calculated 275 (280-300); Potassium 3.2 mEq/L (3.5-5.1); Sodium 132 mEq/L (136-145); Total Protein 6.5 g/dL (6.4-8.9); eGFR For African Americans > 60 (> 60); eGFR For Non-African Americans 58 (> 60)
[2017-08-30 07:16] LABS: Hepatitis B Surface Antigen Reactive (Nonreactive)
--- NOTE | 2017-08-30 08:08 | Internal Med Progress Note ---
<Stoney Noguera - Last Filed: 08/30/17 14:48> Date of Encounter: 08/30/17 Time of Encounter: 08:06 - Assessment and plan (1) Acute hepatic encephalopathy Current Visit: Yes Status: Acute Assessment and plan: -Slight improvement in ammonia today -Lactulose 20 gm by mouth 3 times a day (2) Anasarca Current Visit: Yes Status: Acute Assessment and plan: -She remains markedly volume overloaded with ascites as well -Needs paracentesis but INR too high; last INR was 1.7 -Perform paracentesis when INR is low enough -Will administer vitamin K and then recheck INR -Will contact IR -Lasix 40 mg IV twice a day -Increase spironolactone to 50 mg BID (3) Liver cirrhosis Current Visit: No Status: Chronic Assessment and plan: -Chronic issue -Likely secondary to viral hepatitis Qualifiers: Hepatic cirrhosis type: unspecified hepatic cirrhosis Ascites presence: with ascites Qualified Code(s): K74.60 - Unspecified cirrhosis of liver (4) Pneumonia Current Visit: Yes Status: Acute Assessment and plan: -Chest x-ray demonstrated left basilar airspace disease; possible left lower lobe pneumonia -Patients white count decreased from 26.3-14.6. -Currently on Vanco and Zosyn Qualifiers: Pneumonia type: aspiration pneumonia Aspiration pneumonia type: due to gastric secretions Laterality: left Lung location: lower lobe of lung Qualified Code(s): J69.0 - Pneumonitis due to inhalation of food and vomit (5) Chronic respiratory failure with hypoxia Current Visit: Yes Status: Acute Assessment and plan: -Known history of COPD. -Patient uses 1-2 L of oxygen at home intermittently -Continue oxygen supplementation (6) DM2 (diabetes mellitus, type 2) Current Visit: No Status: Chronic Assessment and plan: -Patient has known history of type 2 diabetes -Insulin sliding scale Qualifiers: Diabetes mellitus custodial insulin use: with intermediate project manager use Diabetes mellitus complication status: with hyperglycemia Qualified Code(s): E11.65 - Type 2 diabetes mellitus with hyperglycemia; Z79.4 - [facility] (current) use of insulin; Z79.4 - [facility] (current) use of insulin; Z79.4 - local intermodal truck driver (current ) use of insulin; Z79.4 - local intermodal truck driver (current) use of insulin (7) Thrombocytopenia Current Visit: Yes Status: Chronic Assessment and plan: -Current platelet count is 111 -Thrombocytopenia is likely secondary to cirrhosis (8) Coagulopathy Current Visit: Yes Status: Chronic Assessment and plan: -Due to cirrhosis -Last INR was 1.7 - Subjective Interval history: 57-year-old female. Presented to ED from [facility] for fluid retention and shortness of breath. No history of liver cirrhosis. Fluid retention has gotten significantly worse, patient became short of breath. Patient was unable to provide history. Limited cognitive ability. Was alert and oriented 2 upon arrival. Patient was noted to have abdominal distention. Laboratory analysis demonstrated UTI and possible pneumonia. Patient was initially started on vancomycin, Zosyn, and Levaquin. Levaquin was later discontinued. Past medical history includes COPD, O2 dependent on 2 L, hypertension, diabetes , and cirrhosis. Patient was seen and examined at bedside this morning. Reports a general feeling of malaise. States that the swelling in her abdomen and legs has become worse. - Constitutional Vitals: Temp Pulse Resp BP Pulse Ox 98.4 F 103 16 102/65 92 08/30/17 07:34 08/30/17 07:34 08/30/17 07:34 08/30/17 07:34 08/30/17 07:34 General appearance: Present: cooperative, obese, answers questions appropriately - Head Head exam: Present: atraumatic, normocephalic - Eye Eye exam: Present: PERRL, conjuntiva pink, sclera anicteric Pupils: Present: PERRL - Neck Neck exam general surgery: Present: supple, trachea midline. Absent: lymphadenopathy - Respiratory Respiratory exam: Present: CTAB. Absent: accessory muscle use, rales, rhonchi, wheezes - Cardiovascular Cardiovascular exam: Present: RRR, +S1, +S2. Absent: diastolic murmur, gallop, rubs, systolic murmur - GI/Abdominal GI/Abdominal exam: Present: distended, hepatomegaly - Extremities Exam Extremities exam: Present: pedal edema - Neurological Exam Neurological exam: Present: no focal deficits. Absent: pronater drift, facial droop, speech deficit - Skin Skin exam: Present: dry, intact Internal Medicine: Result - Labs CBC & Chem 7: 08/30/17 05:03 08/30/17 05:03 Labs: Short CBC 08/30/17 Range/Units 05:03 WBC 14.6 H (4.3-11.1) K/mcL Hgb 8.6 L (11.5-15.4) g/dL Hct 27.0 L (35.3-44.9) % Plt Count 111 L (140-400) K/mcL Neutrophils # 9.7 H (1.6-8.9) K/mcL BMP 08/29/17 08/30/17 08:13 05:03 Sodium 129 L 132 L Potassium 3.8 3.2 L Chloride 96 L 100 Carbon Dioxide 28 30 H BUN 15 13 Creatinine 1.10 0.99 Glucose 101 109 H Calcium 8.5 L 8.4 L Liver Function 08/29/17 08/30/17 Range/Units 08:13 05:03 Total Bilirubin 4.8 H 3.7 H (0.3-1.0) mg/dL AST 72 H 50 H (13-39) Units/L ALT 23 17 (7-52) Units/L Alkaline Phosphatase 162 H 140 H (34-104) Units/L Albumin 2.1 L 2.0 L (3.5-5.7) g/dL - ABG Interpretation ABG results: PT/INR, D-dimer PT 18.7 Seconds (9.4-12.1) H 08/30/17 05:03 Consult Discharge Plan - Plan Referrals: Sahra Laguna MD [Primary Care Provider] - <Vikram Felipe - Last Filed: 08/30/17 15:30> Date of Encounter: 08/30/17 - Assessment and plan (1) Acute hepatic encephalopathy Current Visit: Yes Status: Acute (2) Anasarca Current Visit: Yes Status: Acute (3) Liver cirrhosis Current Visit: No Status: Chronic Qualifiers: Hepatic cirrhosis type: unspecified hepatic cirrhosis Ascites presence: with ascites Qualified Code(s): K74.60 - Unspecified cirrhosis of liver (4) Pneumonia Current Visit: Yes Status: Acute Qualifiers: Pneumonia type: aspiration pneumonia Aspiration pneumonia type: due to gastric secretions Laterality: left Lung location: lower lobe of lung Qualified Code(s): J69.0 - Pneumonitis due to inhalation of food and vomit (5) Chronic respiratory failure with hypoxia Current Visit: Yes Status: Acute (6) DM2 (diabetes mellitus, type 2) Current Visit: No Status: Chronic Qualifiers: Diabetes mellitus custodial insulin use: with intermediate project manager use Diabetes mellitus complication status: with hyperglycemia Qualified Code(s): E11.65 - Type 2 diabetes mellitus with hyperglycemia; Z79.4 - local intermodal truck driver (current) use of insulin; Z79.4 - [facility] (current) use of insulin; Z79.4 - local intermodal truck driver (current ) use of insulin; Z79.4 - local intermodal truck driver (current) use of insulin (7) Thrombocytopenia Current Visit: Yes Status: Chronic (8) Coagulopathy Current Visit: Yes Status: Chronic - Constitutional Vitals: Temp Pulse Resp BP Pulse Ox 98.2 F 107 16 105/62 91 08/30/17 14:53 08/30/17 14:53 08/30/17 14:53 08/30/17 14:53 08/30/17 14:53 Internal Medicine: Result - Labs CBC & Chem 7: 08/30/17 05:03 08/30/17 05:03 Labs: Short CBC 08/30/17 Range/Units 05:03 WBC 14.6 H (4.3-11.1) K/mcL Hgb 8.6 L (11.5-15.4) g/dL Hct 27.0 L (35.3-44.9) % Plt Count 111 L (140-400) K/mcL Neutrophils # 9.7 H (1.6-8.9) K/mcL BMP 08/30/17 05:03 Sodium 132 L Potassium 3.2 L Chloride 100 Carbon Dioxide 30 H BUN 13 Creatinine 0.99 Glucose 109 H Calcium 8.4 L Liver Function 08/30/17 Range/Units 05:03 Total Bilirubin 3.7 H (0.3-1.0) mg/dL AST 50 H (13-39) Units/L ALT 17 (7-52) Units/L Alkaline Phosphatase 140 H (34-104) Units/L Albumin 2.0 L (3.5-5.7) g/dL - ABG Interpretation ABG results: PT/INR, D-dimer PT 18.7 Seconds (9.4-12.1) H 08/30/17 05:03 - Attending Attestation I have independently seen and examined this patient on 08/30. I have reviewed her chart and discussed plan of care the resident physician. 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 She is admitted and being managed for pneumonia, anasarca, hepatic encephalopathy. During my evaluation, the patient is drowsy and not at and oriented to self only. She is morbidly obese with diffuse anasarca, plus bilateral pitting pedal edema. Chest auscultation anteriorly is clear to auscultation bilaterally. She has not been able to get the paracentesis done due to elevated INR. She has received fresh frozen plasma and vitamin K twice. Her abdominal examination shows evident dilated abdominal veins as well as ascites. Labs and imaging reviewed INR is 1.7, hemoglobin is stable, platelet count is low on chronic, hypokalemia. Potassium, renal function is otherwise stable. Chest angiogram done on admission shows no evidence of pulmonary embolism left lower lobe consolidation suspicious for pneumonia, emphysema, cirrhosis and ascites. Chart, patient refused lactulose at some point, but she has had 4 bowel movements already today patellar evaluation. We will give another dose of vitamin K, we will continue diuresis with Lasix, increase spironolactone, consult interventional radiology for paracentesis to rule out spontaneous bacterial peritonitis. The patient is on Zosyn and vancomycin for pneumonia, discontinue vancomycin , very minimal risk for MRSA. Continue Zosyn. Follow all Cultures. Patient is high risk due to altered mental status due to encephalopathy. Rest of details is as in resident physician's documentation
[2017-08-30] MEDS: 0.9 % Sodium Chloride 250 ML IVC SCH (08:55)
[2017-08-30] MEDS: Insulin LISPRO 300 UNITS/3 ML VIAL SQ SCH ×4 (08:57→20:38)
[2017-08-30] MEDS: Lactulose Oral Soln 20 GM/30 ML UDC PO SCH ×4 (09:00→20:47)
[2017-08-30] MEDS: Furosemide 40 MG/4 ML VIAL IVP SCH ×2 (09:00→17:23)
[2017-08-30] MEDS: risperiDONE 1 MG TABLET PO SCH (09:01)
[2017-08-30] MEDS: Spironolactone 25 MG TABLET PO SCH (09:01)
[2017-08-30 17:49] LABS: INR 1.7
[2017-08-30] MEDS: *HR* OxyCODONE Immed Rel 5 MG TABLET PO PRN (20:08)
[2017-08-30] MEDS: traZODone 50 MG TABLET PO SCH (20:09)
[2017-08-31 03:29] LABS: Hepatitis A Antibody IgM Nonreactive (Nonreactive)
[2017-08-31] MEDS: Piperacillin/Tazobactam 3.375 GM in 0.9 % Sodium Chloride Mini Bag 100 ML IVPB SCH ×3 (04:45→20:16)
[2017-08-31 04:46] LABS: Hepatitis C Virus Antibody Reactive (Nonreactive)
[2017-08-31] MEDS ORDERED: Aminoglycoside Consult 1 EACH MC ONE (07:49)
[2017-08-31] MEDS: risperiDONE 1 MG TABLET PO SCH (07:49)
[2017-08-31] MEDS: Lactulose Oral Soln 20 GM/30 ML UDC PO SCH ×3 (07:49→17:24)
[2017-08-31] MEDS: Insulin LISPRO 300 UNITS/3 ML VIAL SQ SCH ×4 (07:50→20:42)
[2017-08-31] MEDS: Furosemide 40 MG/4 ML VIAL IVP SCH ×2 (07:50→17:24)
[2017-08-31 08:05] LABS: Basophils # 0.1 K/mcL (0.0-0.2); Basophils % 0.5 %; Eosinophils # 0.2 K/mcL (0.0-0.6); Eosinophils % 1.8 %; Hematocrit 28.2 % (35.3-44.9); Hemoglobin 9.4 g/dL (11.5-15.4); Immature Granulocytes % 0.7 % (0-4); Lymphocytes # 2.4 K/mcL (0.6-4.6); Lymphocytes % 18.4 %; Mean Corpuscular HGB Conc 33.3 g/dL (31.6-35.5); Mean Corpuscular Hemoglobin 31.2 pg (28.0-33.3); Mean Corpuscular Volume 93.7 fL (83.0-100.0); Mean Platelet Volume 10.7 fL (9.4-12.4); Monocytes # 1.8 K/mcL (0.0-1.3); Monocytes % 14.2 %; Neutrophils # 8.3 K/mcL (1.6-8.9); Platelet Count 108 K/mcL (140-400); Red Blood Count 3.01 M/mcL (3.82-4.97); Segmented Neutrophils % 64.4 %
--- NOTE | 2017-08-31 08:16 | Internal Med Progress Note ---
<Stoney Noguera - Last Filed: 08/31/17 10:39> Date of Encounter: 08/31/17 Time of Encounter: 08:30 - Assessment and plan (1) Acute hepatic encephalopathy Current Visit: Yes Status: Acute Assessment and plan: -Slight improvement in ammonia today -Lactulose 20 gm by mouth 3 times a day (2) Anasarca Current Visit: Yes Status: Acute Assessment and plan: -She remains markedly volume overloaded with ascites as well -Peritoneal fluid was drained by interventional radiology today. -Peritoneal fluid culture, pH, cytology pending -Lasix 40 mg IV twice a day -Spironolactone 50 mg BID (3) Liver cirrhosis Current Visit: No Status: Chronic Assessment and plan: -Chronic issue -Likely secondary to viral hepatitis Qualifiers: Hepatic cirrhosis type: unspecified hepatic cirrhosis Ascites presence: with ascites Qualified Code(s): K74.60 - Unspecified cirrhosis of liver (4) Pneumonia Current Visit: Yes Status: Acute Assessment and plan: -Chest x-ray demonstrated left basilar airspace disease; possible left lower lobe pneumonia -Currently on Vanco and Zosyn Qualifiers: Pneumonia type: aspiration pneumonia Aspiration pneumonia type: due to gastric secretions Laterality: left Lung location: lower lobe of lung Qualified Code(s): J69.0 - Pneumonitis due to inhalation of food and vomit (5) Chronic respiratory failure with hypoxia Current Visit: Yes Status: Acute Assessment and plan: -Known history of COPD. -Patient uses 1-2 L of oxygen at home intermittently -Continue oxygen supplementation (6) DM2 (diabetes mellitus, type 2) Current Visit: No Status: Chronic Assessment and plan: -Patient has known history of type 2 diabetes -Insulin sliding scale Qualifiers: Diabetes mellitus fdc insulin use: with fdc use Diabetes mellitus complication status: with hyperglycemia Qualified Code(s): E11.65 - Type 2 diabetes mellitus with hyperglycemia; Z79.4 - residential (current) use of insulin; Z79.4 - residential (current) use of insulin; Z79.4 - oil heat[employer] (current ) use of insulin; Z79.4 - oil heat[employer] (current) use of insulin (7) Thrombocytopenia Current Visit: Yes Status: Chronic Assessment and plan: Thrombocytopenia is likely secondary to cirrhosis (8) Coagulopathy Current Visit: Yes Status: Chronic Assessment and plan: -Due to cirrhosis - Subjective Interval history: Patient was seen and examined at bedside this morning. Patient states that she is feeling better today than she did yesterday. Recently had peritoneal fluid drained. States that her swelling in her abdomen and lower extremities has slightly improved. States that her breathing is better today. Patient is alert and orientated 3. Still has a general feeling of malaise, though this is improving. Patient has no complaints at this time. - Constitutional Vitals: Temp Pulse Resp BP Pulse Ox 98.1 F 108 14 112/77 91 08/31/17 05:25 08/31/17 05:25 08/31/17 05:25 08/31/17 05:25 08/31/17 05:25 General appearance: Present: cooperative, obese, answers questions appropriately - Head Head exam: Present: atraumatic, normocephalic - Eye Eye exam: Present: PERRL, conjuntiva pink, sclera anicteric Pupils: Present: PERRL - Neck Neck exam general surgery: Present: supple, trachea midline. Absent: lymphadenopathy - Respiratory Respiratory exam: Present: CTAB. Absent: accessory muscle use, rales, rhonchi, wheezes - Cardiovascular Cardiovascular exam: Present: RRR, +S1, +S2. Absent: diastolic murmur, gallop, rubs, systolic murmur - GI/Abdominal GI/Abdominal exam: Present: distended, normal bowel sounds, soft, no peritoneal signs. Absent: tenderness - Expanded GI/Abdominal Exam GI/Abdominal exam expanded: Present: ascites - Extremities Exam Extremities exam: Present: pedal edema, warm, radial pulses palpable and symmetrical. Absent: calf tenderness, cyanotic - Neurological Exam Neurological exam: Present: CN II-XII intact, oriented X3, no focal deficits. Absent: pronater drift, facial droop, speech deficit - Skin Skin exam: Present: dry, intact Internal Medicine: Result - Labs CBC & Chem 7: 08/31/17 07:53 08/31/17 07:53 - ABG Interpretation ABG results: PT/INR, D-dimer PT 18.0 Seconds (9.4-12.1) H 08/30/17 17:28 Consult Discharge Plan - Plan Referrals: Sahra Laguna MD [Primary Care Provider] - <Vikram Felipe T - Last Filed: 08/31/17 16:45> Date of Encounter: 08/31/17 - Assessment and plan (1) Acute hepatic encephalopathy Current Visit: Yes Status: Acute (2) Anasarca Current Visit: Yes Status: Acute (3) Liver cirrhosis Current Visit: No Status: Chronic Qualifiers: Hepatic cirrhosis type: unspecified hepatic cirrhosis Ascites presence: with ascites Qualified Code(s): K74.60 - Unspecified cirrhosis of liver (4) Pneumonia Current Visit: Yes Status: Acute Qualifiers: Pneumonia type: aspiration pneumonia Aspiration pneumonia type: due to gastric secretions Laterality: left Lung location: lower lobe of lung Qualified Code(s): J69.0 - Pneumonitis due to inhalation of food and vomit (5) Chronic respiratory failure with hypoxia Current Visit: Yes Status: Acute (6) DM2 (diabetes mellitus, type 2) Current Visit: No Status: Chronic Qualifiers: Diabetes mellitus terminal supervisor insulin use: with terminal supervisor use Diabetes mellitus complication status: with hyperglycemia Qualified Code(s): E11.65 - Type 2 diabetes mellitus with hyperglycemia; Z79.4 - residential (current) use of insulin; Z79.4 - residential (current) use of insulin; Z79.4 - oil heaterman (current ) use of insulin; Z79.4 - residential (current) use of insulin (7) Thrombocytopenia Current Visit: Yes Status: Chronic (8) Coagulopathy Current Visit: Yes Status: Chronic - Constitutional Vitals: Temp Pulse Resp BP Pulse Ox 98.9 F 98 18 108/61 96 08/31/17 15:16 08/31/17 15:16 08/31/17 15:16 08/31/17 15:16 08/31/17 15:16 Internal Medicine: Result - Labs CBC & Chem 7: 08/31/17 07:53 08/31/17 07:53 Labs: Short CBC 08/31/17 Range/Units 07:53 WBC 12.9 H (4.3-11.1) K/mcL Hgb 9.4 L (11.5-15.4) g/dL Hct 28.2 L (35.3-44.9) % Plt Count 108 L (140-400) K/mcL Neutrophils # 8.3 (1.6-8.9) K/mcL BMP 08/31/17 07:53 Sodium 132 L Potassium 3.0 L Chloride 99 Carbon Dioxide 31 H BUN 12 Creatinine 0.88 Glucose 86 Calcium 8.2 L - ABG Interpretation ABG results: PT/INR, D-dimer PT 17.4 Seconds (9.4-12.1) H 08/31/17 07:53 - Impressions Impressions Paracentesis Ultrasound 08/31/17 00:00 IMPRESSION: Successful ultrasound guided paracentesis. D/ / 08/31/2017 10:33:31 Leyla Petit MD / [facility] Interpreting Provider: Leyla Petit MD - Attending Attestation I examined this patient and my medical decision-making was reviewed with the Resident Physician. I agree with the documented findings, disposition and treatment plan as described except to the extent set forth below Patient is very much more awake today , she is undergoing paracentensis at my time of review, she has drained 3L of straw colored fluid She is having BM twice daily, and is clinically improving She has no new complains Physical exam shows she is much more alert and wake and oriented X3, abdomen is soft, pedal edema is improving Lab reviewed: Leuocytosis is improving, hypokalemia, Vanc trough is therapeutic Plan: Discontinue vancomycin, continue zosyn, no SBP by cell count, culture is pending, follow cytology, SAAG difficult to calculate due to no number for ascitic fluid albumin, if patient drains >5L will need albumin infusion, GI eval for screening endoscopy. Patient is clinically improving Rest of details as in resident physician's documentation
[2017-08-31 08:34] LABS: BUN/Creatinine Ratio 14 (6-26); Blood Urea Nitrogen 12 mg/dL (6-20); Calcium 8.2 mg/dL (8.6-10.3); Carbon Dioxide 31 mEq/L (23-29); Chloride 99 mEq/L (98-107); Glucose 86 mg/dL (70-105); Osmolality,Calculated 273 (280-300); Sodium 132 mEq/L (136-145); eGFR For African Americans > 60 (> 60); eGFR For Non-African Americans > 60 (> 60)
[2017-08-31 09:14] LABS: INR 1.6; Prothrombin Time 17.4 Seconds (9.4-12.1)
--- NOTE | 2017-08-31 09:34 | IR Procedure Note ---
Date of procedure: 08/31/17 Consent Obtained: Verbal consent Timeout: Correct patient and procedure verified, Correct site verified, Time out performed, Skin prep completed Indications: ascites Procedure Performed: paracentesis Was there an speech language pathology assistant present: No Site/Technique: rt abdomen Results/Findings: moderate ascites Estimated blood loss (cc): 0 Complications: None; Tolerated procedure well Post Procedure Treatment Plan: observation Specimen: none
[2017-08-31 10:54] LABS: RBC,Peritoneal Fluid < 0.002 M/mcL
[2017-08-31 10:55] LABS: Appearance of Peritoneal Fl CLEAR (Clear)
[2017-08-31 11:43] LABS: LDH,Peritoneal Fluid 28 Units/L (No Ref Range)
[2017-08-31] MEDS: traZODone 50 MG TABLET PO SCH (20:17)
[2017-09-01] MEDS: Piperacillin/Tazobactam 3.375 GM in 0.9 % Sodium Chloride Mini Bag 100 ML IVPB SCH ×3 (04:36→21:14)
[2017-09-01 07:30] LABS: Basophils # 0.1 K/mcL (0.0-0.2); Basophils % 0.6 %; Eosinophils # 0.2 K/mcL (0.0-0.6); Eosinophils % 2.1 %; Hematocrit 28.8 % (35.3-44.9); Hemoglobin 9.4 g/dL (11.5-15.4); Immature Granulocytes % 0.6 % (0-4); Lymphocytes # 2.6 K/mcL (0.6-4.6); Lymphocytes % 24.3 %; Mean Corpuscular HGB Conc 32.6 g/dL (31.6-35.5); Mean Corpuscular Hemoglobin 30.6 pg (28.0-33.3); Mean Corpuscular Volume 93.8 fL (83.0-100.0); Mean Platelet Volume 10.4 fL (9.4-12.4); Monocytes # 1.6 K/mcL (0.0-1.3); Monocytes % 15.3 %; Neutrophils # 6.1 K/mcL (1.6-8.9); Platelet Count 115 K/mcL (140-400); Red Blood Count 3.07 M/mcL (3.82-4.97); Red Cell Distribution Width 16.5 % (11.5-14.5); Segmented Neutrophils % 57.1 %
[2017-09-01] MEDS: Insulin LISPRO 300 UNITS/3 ML VIAL SQ SCH ×4 (08:14→21:23)
--- NOTE | 2017-09-01 08:24 | Internal Med Progress Note ---
<Stoney Noguera - Last Filed: 09/01/17 13:23> Date of Encounter: 09/01/17 Time of Encounter: 08:23 - Assessment and plan (1) Acute hepatic encephalopathy Current Visit: Yes Status: Acute Assessment and plan: Patient appeared very confused today; would not answer questions. -Repeatedly stated that she wanted fresh air and that she had no one to talk to. -A one time dose of lactulose was ordered; patient refused it -Lactulose 20 gm by mouth 3 times a day (2) Anasarca Current Visit: Yes Status: Acute Assessment and plan: -She remains markedly volume overloaded with ascites -Peritoneal fluid was drained by interventional radiology -Does not have SBP -Lasix 60 mg IV twice a day -Spironolactone 50 mg BID (3) Liver cirrhosis Current Visit: No Status: Chronic Assessment and plan: -Chronic issue -Likely secondary to viral hepatitis Qualifiers: Hepatic cirrhosis type: unspecified hepatic cirrhosis Ascites presence: with ascites Qualified Code(s): K74.60 - Unspecified cirrhosis of liver (4) Pneumonia Current Visit: Yes Status: Acute Assessment and plan: -CXR demonstrated left basilar airspace disease; possible LLL PNA -Currently on Zosyn Qualifiers: Pneumonia type: aspiration pneumonia Aspiration pneumonia type: due to gastric secretions Laterality: left Lung location: lower lobe of lung Qualified Code(s): J69.0 - Pneumonitis due to inhalation of food and vomit (5) Chronic respiratory failure with hypoxia Current Visit: Yes Status: Acute Assessment and plan: -Known history of COPD. -Patient uses 1-2 L of oxygen at home intermittently -Continue oxygen supplementation (6) DM2 (diabetes mellitus, type 2) Current Visit: No Status: Chronic Assessment and plan: -Patient has known history of type 2 diabetes -Insulin sliding scale Qualifiers: Diabetes mellitus group home insulin use: with group home use Diabetes mellitus complication status: with hyperglycemia Qualified Code(s): E11.65 - Type 2 diabetes mellitus with hyperglycemia; Z79.4 - prison (current) use of insulin; Z79.4 - buttermilk drier operator (current) use of insulin; Z79.4 - buttermilk drier operator (current ) use of insulin; Z79.4 - buttermilk drier operator (current) use of insulin (7) Thrombocytopenia Current Visit: Yes Status: Chronic Assessment and plan: Thrombocytopenia is likely secondary to cirrhosis (8) Coagulopathy Current Visit: Yes Status: Chronic Assessment and plan: -Due to cirrhosis - Subjective Interval history: Patient was seen and examined at bedside this morning. Patient appears to be very confused at this time. She is attmpting to get up out of bed. She is speaking in broken sentences and is talking about how she wants some fresh air and has no one to talk to. Patient's fluid status appears to be relatively unchanged. ROS unobtainable at this time. She refused her dose of lactulose this morning. - Constitutional Vitals: Temp Pulse Resp BP Pulse Ox 97.6 F 110 16 104/67 92 09/01/17 07:48 09/01/17 07:48 09/01/17 07:48 09/01/17 07:48 09/01/17 07:48 General appearance: Present: A&O X 0, obese. Absent: cooperative, answers questions appropriately Exam: Appears confused; does not answer questions appropriately - Head Head exam: Present: atraumatic, normocephalic - Eye Eye exam: Present: PERRL, conjuntiva pink, sclera anicteric Pupils: Present: PERRL - Respiratory Respiratory exam: Present: CTAB. Absent: accessory muscle use, rales, rhonchi, wheezes - Cardiovascular Cardiovascular exam: Present: RRR, +S1, +S2. Absent: diastolic murmur, gallop, rubs, systolic murmur - GI/Abdominal GI/Abdominal exam: Present: distended, hepatomegaly Additional comments: Abdominal swelling present - Expanded GI/Abdominal Exam GI/Abdominal exam expanded: Present: ascites - Extremities Exam Extremities exam: Present: pedal edema - Skin Skin exam: Present: dry, intact Internal Medicine: Result - Labs CBC & Chem 7: 09/01/17 06:33 09/01/17 06:33 Labs: Short CBC 09/01/17 Range/Units 06:33 WBC 10.7 (4.3-11.1) K/mcL Hgb 9.4 L (11.5-15.4) g/dL Hct 28.8 L (35.3-44.9) % Plt Count 115 L (140-400) K/mcL Neutrophils # 6.1 (1.6-8.9) K/mcL BMP 08/31/17 07:53 Sodium 132 L Potassium 3.0 L Chloride 99 Carbon Dioxide 31 H BUN 12 Creatinine 0.88 Glucose 86 Calcium 8.2 L - ABG Interpretation ABG results: PT/INR, D-dimer PT 17.4 Seconds (9.4-12.1) H 08/31/17 07:53 - Impressions Impressions Paracentesis Ultrasound 08/31/17 00:00 IMPRESSION: Successful ultrasound guided paracentesis. D/ / 08/31/2017 10:33:31 Leyla Petit MD / [facility] Interpreting Provider: Leyla Petit MD Consult Discharge Plan - Plan Referrals: Sahra Laguna MD [Primary Care Provider] - <Vikram Felipe T - Last Filed: 09/01/17 14:40> Date of Encounter: 09/01/17 - Assessment and plan (1) Acute hepatic encephalopathy Current Visit: Yes Status: Acute (2) Anasarca Current Visit: Yes Status: Acute (3) Liver cirrhosis Current Visit: No Status: Chronic Qualifiers: Hepatic cirrhosis type: unspecified hepatic cirrhosis Ascites presence: with ascites Qualified Code(s): K74.60 - Unspecified cirrhosis of liver (4) Pneumonia Current Visit: Yes Status: Acute Qualifiers: Pneumonia type: aspiration pneumonia Aspiration pneumonia type: due to gastric secretions Laterality: left Lung location: lower lobe of lung Qualified Code(s): J69.0 - Pneumonitis due to inhalation of food and vomit (5) Chronic respiratory failure with hypoxia Current Visit: Yes Status: Acute (6) DM2 (diabetes mellitus, type 2) Current Visit: No Status: Chronic Qualifiers: Diabetes mellitus group home insulin use: with exterminator helper use Diabetes mellitus complication status: with hyperglycemia Qualified Code(s): E11.65 - Type 2 diabetes mellitus with hyperglycemia; Z79.4 - prison (current) use of insulin; Z79.4 - prison (current) use of insulin; Z79.4 - prison (current ) use of insulin; Z79.4 - prison (current) use of insulin (7) Thrombocytopenia Current Visit: Yes Status: Chronic (8) Coagulopathy Current Visit: Yes Status: Chronic - Constitutional Vitals: Temp Pulse Resp BP Pulse Ox 97.6 F 110 16 104/67 92 09/01/17 07:48 09/01/17 07:48 09/01/17 07:48 09/01/17 07:48 09/01/17 07:48 Internal Medicine: Result - Labs CBC & Chem 7: 09/01/17 06:33 09/01/17 06:33 Labs: Short CBC 09/01/17 Range/Units 06:33 WBC 10.7 (4.3-11.1) K/mcL Hgb 9.4 L (11.5-15.4) g/dL Hct 28.8 L (35.3-44.9) % Plt Count 115 L (140-400) K/mcL Neutrophils # 6.1 (1.6-8.9) K/mcL BMP 09/01/17 06:33 Sodium 133 L Potassium 3.1 L Chloride 98 Carbon Dioxide 31 H BUN 10 Creatinine 0.77 Glucose 83 Calcium 8.2 L - ABG Interpretation ABG results: PT/INR, D-dimer PT 17.4 Seconds (9.4-12.1) H 08/31/17 07:53 - Attending Attestation I examined this patient and my medical decision-making was reviewed with the Resident Physician. I agree with the documented findings, disposition and treatment plan as described except to the extent set forth below Patient is slightly more confused this morning, we will increase the dose and frequency of lactulose. GI eval is pending an noted Continue current trt Increase lasix for anasarca Replace potassium, and check Mag a.m, She will probably need paracentensis again -therapeutic prior to discharge Continue other management Rest as in the resident physician's documentation
[2017-09-01] MEDS: Furosemide 40 MG/4 ML VIAL IVP SCH ×2 (08:48→18:44)
[2017-09-01] MEDS: risperiDONE 1 MG TABLET PO SCH (08:49)
[2017-09-01] MEDS: Lactulose Oral Soln 20 GM/30 ML UDC PO SCH ×3 (08:49→21:14)
[2017-09-01 09:11] LABS: BUN/Creatinine Ratio 13 (6-26); Blood Urea Nitrogen 10 mg/dL (6-20); Calcium 8.2 mg/dL (8.6-10.3); Carbon Dioxide 31 mEq/L (23-29); Chloride 98 mEq/L (98-107); Glucose 83 mg/dL (70-105); Osmolality,Calculated 274 (280-300); Potassium 3.1 mEq/L (3.5-5.1); Sodium 133 mEq/L (136-145); eGFR For African Americans > 60 (> 60); eGFR For Non-African Americans > 60 (> 60)
[2017-09-01] MEDS ORDERED: Lactulose Oral Soln 20 GM/30 ML UDC PO ONE (10:03)
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
[2017-09-01] MEDS ORDERED: Potassium Chloride Elixir 20 MEQ/15 ML UDC PO ONE (14:38)
[2017-09-01] MEDS: *HR* OxyCODONE Immed Rel 5 MG TABLET PO PRN (21:13)
[2017-09-01] MEDS: traZODone 50 MG TABLET PO SCH (21:13)
[2017-09-02] MEDS: *HR* OxyCODONE Immed Rel 5 MG TABLET PO PRN (04:28)
[2017-09-02] MEDS: Piperacillin/Tazobactam 3.375 GM in 0.9 % Sodium Chloride Mini Bag 100 ML IVPB SCH ×3 (04:29→20:49)
[2017-09-02 06:23] LABS: Basophils # 0.1 K/mcL (0.0-0.2); Basophils % 0.5 %; Eosinophils # 0.2 K/mcL (0.0-0.6); Eosinophils % 1.7 %; Hematocrit 28.7 % (35.3-44.9); Hemoglobin 9.1 g/dL (11.5-15.4); Immature Granulocytes % 0.8 % (0-4); Lymphocytes % 17.3 %; Mean Corpuscular HGB Conc 31.7 g/dL (31.6-35.5); Mean Corpuscular Volume 94.7 fL (83.0-100.0); Mean Platelet Volume 10.6 fL (9.4-12.4); Monocytes # 1.7 K/mcL (0.0-1.3); Monocytes % 14.6 %; Neutrophils # 7.7 K/mcL (1.6-8.9); Nucleated Red Blood Cells 0.3 /100 WBC (0); Platelet Count 118 K/mcL (140-400); Red Blood Count 3.03 M/mcL (3.82-4.97); Red Cell Distribution Width 16.6 % (11.5-14.5); Segmented Neutrophils % 65.1 %
[2017-09-02 06:31] LABS: BUN/Creatinine Ratio 11 (6-26); Blood Urea Nitrogen 9 mg/dL (6-20); Carbon Dioxide 28 mEq/L (23-29); Chloride 93 mEq/L (98-107); Glucose 158 mg/dL (70-105); Osmolality,Calculated 276 (280-300); Potassium 2.7 mEq/L (3.5-5.1); Sodium 132 mEq/L (136-145); eGFR For African Americans > 60 (> 60); eGFR For Non-African Americans > 60 (> 60)
[2017-09-02] MEDS ORDERED: Lactulose 200 GM, Sodium Chloride IRRigation 700 ML RC ONE (08:07)
[2017-09-02] MEDS ORDERED: Potassium Chloride Elixir 20 MEQ/15 ML UDC PO ONE (08:26)
--- NOTE | 2017-09-02 08:39 | Internal Med Progress Note ---
<Stoney Noguera - Last Filed: 09/02/17 13:01> Date of Encounter: 09/02/17 Time of Encounter: 09:15 - Assessment and plan (1) Liver cirrhosis Current Visit: No Status: Chronic Assessment and plan: Chronic issue; Likely secondary to viral hepatitis -Patient initially presented with increased dyspnea and edema -Patient had elevated bilirubin and LONG -CT showed ascites -+ Hep B and Hep C -Paracentesis was done on 08/31 with removal of 2.6L. -MELD NA 21 Child Cummings class C Plan: -Continue Aldactone and Lasix -Liver ultrasound to rule out CBD obstruction Qualifiers: Hepatic cirrhosis type: unspecified hepatic cirrhosis Ascites presence: with ascites Qualified Code(s): K74.60 - Unspecified cirrhosis of liver (2) Anasarca Current Visit: Yes Status: Acute Assessment and plan: -She remains markedly volume overloaded with ascites -Peritoneal fluid was drained by interventional radiology -Does not have SBP -Lasix 60 mg IV twice a day -Spironolactone 50 mg BID -Placement of luke and strict I/Os (3) Acute hepatic encephalopathy Current Visit: Yes Status: Acute Assessment and plan: -Lactulose 20 gm by mouth 3 times a day (4) Pneumonia Current Visit: Yes Status: Acute Assessment and plan: -CXR demonstrated left basilar airspace disease; possible LLL PNA -Currently on Zosyn Qualifiers: Pneumonia type: aspiration pneumonia Aspiration pneumonia type: due to gastric secretions Laterality: left Lung location: lower lobe of lung Qualified Code(s): J69.0 - Pneumonitis due to inhalation of food and vomit (5) Chronic respiratory failure with hypoxia Current Visit: Yes Status: Acute Assessment and plan: -Known history of COPD. -Patient uses 1-2 L of oxygen at home intermittently -Continue oxygen supplementation (6) DM2 (diabetes mellitus, type 2) Current Visit: No Status: Chronic Assessment and plan: -Patient has known history of type 2 diabetes -Insulin sliding scale Qualifiers: Diabetes mellitus fdc insulin use: with moth exterminator use Diabetes mellitus complication status: with hyperglycemia Qualified Code(s): E11.65 - Type 2 diabetes mellitus with hyperglycemia; Z79.4 - penitentiary (current) use of insulin; Z79.4 - penitentiary (current) use of insulin; Z79.4 - penitentiary (current ) use of insulin; Z79.4 - adjunct faculty for medical terminology (current) use of insulin (7) Thrombocytopenia Current Visit: Yes Status: Chronic Assessment and plan: Thrombocytopenia is likely secondary to cirrhosis (8) Coagulopathy Current Visit: Yes Status: Chronic Assessment and plan: -Due to cirrhosis (9) Hypokalemia Current Visit: Yes Status: Acute Assessment and plan: Patient's potassium was low this morning at 2.7 -40 mg PO and 40 mg IV potassium (10) Hypomagnesemia Current Visit: Yes Status: Acute Assessment and plan: Patient was found to have low magnesium this morning -2g magnesium - Subjective Interval history: Patient was seen and examined at bedside this morning. Patient appears much more alert than yesterday. No confusion. She reports that she is feeling better today. There is a significant improvement in her feeling of malaise. States that she is tolerating her diet well at this time. Does not notice much of a significant difference in the swelling in her abdomen or her extremities. - Constitutional Vitals: Temp Pulse Resp BP Pulse Ox 97.6 F 109 18 126/84 92 09/02/17 08:05 09/02/17 08:05 09/02/17 08:05 09/02/17 08:05 09/02/17 08:05 General appearance: Present: cooperative, A&O X 3, obese, answers questions appropriately - Head Head exam: Present: atraumatic, normocephalic - Eye Eye exam: Present: PERRL, conjuntiva pink, sclera anicteric Pupils: Present: PERRL - Neck Neck exam general surgery: Present: supple, trachea midline. Absent: lymphadenopathy - Respiratory Respiratory exam: Present: CTAB. Absent: accessory muscle use, rales, rhonchi, wheezes - Cardiovascular Cardiovascular exam: Present: RRR, +S1, +S2. Absent: diastolic murmur, gallop, rubs, systolic murmur - GI/Abdominal GI/Abdominal exam: Present: distended, hepatomegaly, no peritoneal signs. Absent: tenderness - Expanded GI/Abdominal Exam GI/Abdominal exam expanded: Present: ascites - Extremities Exam Extremities exam: Present: pedal edema, warm, radial pulses palpable and symmetrical. Absent: calf tenderness, cyanotic - Skin Skin exam: Present: dry, intact Internal Medicine: Result - Labs CBC & Chem 7: 09/02/17 05:17 09/02/17 05:17 Labs: Short CBC 09/02/17 Range/Units 05:17 WBC 11.8 H (4.3-11.1) K/mcL Hgb 9.1 L (11.5-15.4) g/dL Hct 28.7 L (35.3-44.9) % Plt Count 118 L (140-400) K/mcL Neutrophils # 7.7 (1.6-8.9) K/mcL BMP 09/01/17 09/02/17 06:33 05:17 Sodium 133 L 132 L Potassium 3.1 L 2.7 L Chloride 98 93 L Carbon Dioxide 31 H 28 BUN 10 9 Creatinine 0.77 0.85 Glucose 83 158 H Calcium 8.2 L 8.0 L - ABG Interpretation ABG results: PT/INR, D-dimer PT 17.4 Seconds (9.4-12.1) H 08/31/17 07:53 Consult Discharge Plan - Plan Referrals: Sahra Laguna MD [Primary Care Provider] - <Vikram Felipe - Last Filed: 09/02/17 13:50> Date of Encounter: 09/02/17 - Assessment and plan (1) Acute hepatic encephalopathy Current Visit: Yes Status: Acute (2) Anasarca Current Visit: Yes Status: Acute (3) Liver cirrhosis Current Visit: No Status: Chronic Qualifiers: Hepatic cirrhosis type: unspecified hepatic cirrhosis Ascites presence: with ascites Qualified Code(s): K74.60 - Unspecified cirrhosis of liver (4) Pneumonia Current Visit: Yes Status: Acute Qualifiers: Pneumonia type: aspiration pneumonia Aspiration pneumonia type: due to gastric secretions Laterality: left Lung location: lower lobe of lung Qualified Code(s): J69.0 - Pneumonitis due to inhalation of food and vomit (5) Chronic respiratory failure with hypoxia Current Visit: Yes Status: Acute (6) DM2 (diabetes mellitus, type 2) Current Visit: No Status: Chronic Qualifiers: Diabetes mellitus moth exterminator insulin use: with moth exterminator use Diabetes mellitus complication status: with hyperglycemia Qualified Code(s): E11.65 - Type 2 diabetes mellitus with hyperglycemia; Z79.4 - penitentiary (current) use of insulin; Z79.4 - adjunct faculty for medical terminology (current) use of insulin; Z79.4 - penitentiary (current ) use of insulin; Z79.4 - penitentiary (current) use of insulin (7) Thrombocytopenia Current Visit: Yes Status: Chronic (8) Coagulopathy Current Visit: Yes Status: Chronic (9) Bilirubinemia Current Visit: Yes Status: Acute - Constitutional Vitals: Temp Pulse Resp BP Pulse Ox 97.6 F 93 18 110/78 94 09/02/17 08:05 09/02/17 12:19 09/02/17 12:19 09/02/17 12:19 09/02/17 12:19 Internal Medicine: Result - Labs CBC & Chem 7: 09/02/17 05:17 09/02/17 05:17 Labs: Short CBC 09/02/17 Range/Units 05:17 WBC 11.8 H (4.3-11.1) K/mcL Hgb 9.1 L (11.5-15.4) g/dL Hct 28.7 L (35.3-44.9) % Plt Count 118 L (140-400) K/mcL Neutrophils # 7.7 (1.6-8.9) K/mcL BMP 09/02/17 05:17 Sodium 132 L Potassium 2.7 L Chloride 93 L Carbon Dioxide 28 BUN 9 Creatinine 0.85 Glucose 158 H Calcium 8.0 L Liver Function 09/02/17 Range/Units 05:17 Total Bilirubin 4.5 H (0.3-1.0) mg/dL Direct Bilirubin 2.1 H (0.0-0.2) mg/dL AST 53 H (13-39) Units/L ALT 16 (7-52) Units/L Alkaline Phosphatase 134 H (34-104) Units/L Albumin 2.1 L (3.5-5.7) g/dL - ABG Interpretation ABG results: PT/INR, D-dimer PT 17.4 Seconds (9.4-12.1) H 08/31/17 07:53 - Attending Attestation I examined this patient and my medical decision-making was reviewed with the Resident Physician. 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, who is admitted and being managed for ascites, hepatic encephalopathy, pancytopenia, pneumonia, DM2, Chronic respiratory failure with hypoxia She is s/p paracentensis , with no SBP She is still on antibiotics for pneumonia She remained confused during my evaluation this morning, she is awake and lert but oriented to self only, her ascites persists and pedal edema is 2+ bilaterally We have also noted jaundice as well as obstructive bilirubinemia, hypokalemia and hypomagnessemia persists GI is following and have ordered a RUQ USS to evaluate for stones/obstruction We have ordered a lactulose enema as patient did not have any BM yesterday 09/01 , and continue po lactulose, all electolytes have been replaced Place Luke catheter for strict I/O monitoring, patient is incontinent Patient's condition is moderate to high risk due to mental status changes , and risk for progression to coma Patient is full code Rest as in the resident physician's documentation
[2017-09-02 09:02] LABS: Magnesium 1.5 mg/dL (1.6-2.6)
[2017-09-02 09:11] LABS: Alanine Aminotransferase 16 Units/L (7-52); Albumin 2.1 g/dL (3.5-5.7); Albumin/Globulin Ratio 0.5 (1.1-2.2); Alkaline Phosphatase 134 Units/L (34-104); Aspartate Amino Transferase 53 Units/L (13-39); Bilirubin,Direct 2.1 mg/dL (0.0-0.2); Bilirubin,Indirect 2.4 mg/dL (0.0-1.2); Bilirubin,Total 4.5 mg/dL (0.3-1.0); Globulin 4.6 g/dL (2.4-3.5); Total Protein 6.7 g/dL (6.4-8.9)
[2017-09-02] MEDS: Furosemide 40 MG/4 ML VIAL IVP SCH ×2 (10:04→15:55)
[2017-09-02] MEDS: Lactulose Oral Soln 20 GM/30 ML UDC PO SCH ×4 (10:04→20:50)
[2017-09-02] MEDS: risperiDONE 1 MG TABLET PO SCH (10:04)
[2017-09-02] MEDS: Insulin LISPRO 300 UNITS/3 ML VIAL SQ SCH ×4 (10:09→20:51)
[2017-09-02 12:56] LABS: Hepatitis B Surface Antigen Reactive (Nonreactive)
[2017-09-02 12:57] LABS: Hepatitis B Core IgM Reactive (Nonreactive)
[2017-09-02] MEDS: traZODone 50 MG TABLET PO SCH (20:50)
[2017-09-03] MEDS: Piperacillin/Tazobactam 3.375 GM in 0.9 % Sodium Chloride Mini Bag 100 ML IVPB SCH ×2 (04:41→13:02)
[2017-09-03 07:05] LABS: Basophils # 0.1 K/mcL (0.0-0.2); Basophils % 0.5 %; Eosinophils # 0.3 K/mcL (0.0-0.6); Eosinophils % 2.6 %; Hematocrit 28.8 % (35.3-44.9); Hemoglobin 9.5 g/dL (11.5-15.4); Immature Granulocytes % 0.5 % (0-4); Lymphocytes # 3.1 K/mcL (0.6-4.6); Mean Corpuscular Hemoglobin 30.7 pg (28.0-33.3); Mean Corpuscular Volume 93.2 fL (83.0-100.0); Mean Platelet Volume 10.4 fL (9.4-12.4); Monocytes # 1.5 K/mcL (0.0-1.3); Monocytes % 13.3 %; Nucleated Red Blood Cells 0.2 /100 WBC (0); Platelet Count 105 K/mcL (140-400); Red Blood Count 3.09 M/mcL (3.82-4.97); Red Cell Distribution Width 16.5 % (11.5-14.5); Segmented Neutrophils % 55.1 %
[2017-09-03] MEDS: Insulin LISPRO 300 UNITS/3 ML VIAL SQ SCH ×4 (10:49→21:18)
[2017-09-03 12:48] LABS: Alanine Aminotransferase 17 Units/L (7-52); Albumin 2.1 g/dL (3.5-5.7); Albumin/Globulin Ratio 0.4 (1.1-2.2); Alkaline Phosphatase 140 Units/L (34-104); Aspartate Amino Transferase 59 Units/L (13-39); BUN/Creatinine Ratio 10 (6-26); Bilirubin,Total 5.1 mg/dL (0.3-1.0); Blood Urea Nitrogen 8 mg/dL (6-20); Calcium 8.2 mg/dL (8.6-10.3); Carbon Dioxide 31 mEq/L (23-29); Chloride 94 mEq/L (98-107); Globulin 5.1 g/dL (2.4-3.5); Glucose 78 mg/dL (70-105); Osmolality,Calculated 271 (280-300); Potassium 2.9 mEq/L (3.5-5.1); Sodium 132 mEq/L (136-145); Total Protein 7.2 g/dL (6.4-8.9); eGFR For African Americans > 60 (> 60); eGFR For Non-African Americans > 60 (> 60)
[2017-09-03] MEDS: risperiDONE 1 MG TABLET PO SCH (13:00)
[2017-09-03] MEDS: Furosemide 40 MG/4 ML VIAL IVP SCH ×2 (13:01→18:27)
[2017-09-03] MEDS: Lactulose Oral Soln 20 GM/30 ML UDC PO SCH ×5 (13:02→21:28)
[2017-09-03 13:36] LABS: HCV Quant Interpretation DETECTED (Not Detected)
[2017-09-03] MEDS: Ondansetron 4 MG/2 ML VIAL IVP PRN (16:06)
--- NOTE | 2017-09-03 18:04 | Internal Med Progress Note ---
Date of Encounter: 09/03/17 Time of Encounter: 13:00 - Assessment and plan (1) Acute hepatic encephalopathy Current Visit: Yes Status: Acute Assessment and plan: improving now, continue lactulose (2) Anasarca Current Visit: Yes Status: Acute Assessment and plan: pedal edema, improving, continue lasix and aldactone (3) Liver cirrhosis Current Visit: Yes Status: Chronic Assessment and plan: child C, decompensated GI eval noted repeat USS noted, unremarakble-0ld changes Continue lasix, spirnolactone, lactulose Qualifiers: Hepatic cirrhosis type: unspecified hepatic cirrhosis Ascites presence: with ascites Qualified Code(s): K74.60 - Unspecified cirrhosis of liver (4) Pneumonia Current Visit: Yes Status: Acute Assessment and plan: discontinue zosyn, she has received it for 7 days Qualifiers: Pneumonia type: aspiration pneumonia Aspiration pneumonia type: due to gastric secretions Laterality: left Lung location: lower lobe of lung Qualified Code(s): J69.0 - Pneumonitis due to inhalation of food and vomit (5) Chronic respiratory failure with hypoxia Current Visit: Yes Status: Chronic Assessment and plan: chronic stable (6) DM2 (diabetes mellitus, type 2) Current Visit: Yes Status: Chronic Assessment and plan: controlled on current regimen, continue same Qualifiers: Diabetes mellitus [facility] insulin use: with [facility] use Diabetes mellitus complication status: with hyperglycemia Qualified Code(s): E11.65 - Type 2 diabetes mellitus with hyperglycemia; Z79.4 - rn long term care (current) use of insulin; Z79.4 - residential (current) use of insulin; Z79.4 - rn long term care (current ) use of insulin; Z79.4 - rn long term care (current) use of insulin (7) Thrombocytopenia Current Visit: Yes Status: Chronic Assessment and plan: chronic stable (8) Coagulopathy Current Visit: Yes Status: Resolved Assessment and plan: resolved, due to liver disease, received FFP and Vit K (9) Bilirubinemia Current Visit: Yes Status: Acute Assessment and plan: due to liver disease, no stones on USS Continue to monitor - Subjective Interval history: Seen and examined at bedside after returning from [facility] which is resulted with no new findings, she denies new complains She is awake and alert today and not confused She remained hypervolemic, with pedal edema which is slowly beginning to improve - Constitutional Vitals: Temp Pulse Resp BP Pulse Ox 98.7 F 95 18 97/62 90 09/03/17 04:46 09/03/17 04:46 09/03/17 04:46 09/03/17 04:46 09/03/17 04:46 General appearance: Present: cooperative, A&O X 3, morbidly obese, answers questions appropriately - Head Head exam: Present: atraumatic - Eye Eye exam: Present: scleral icterus - ENT ENT exam: Present: mucous membranes moist - Neck Neck exam general surgery: Present: supple, trachea midline. Absent: lymphadenopathy - Respiratory Respiratory exam: Present: CTAB. Absent: accessory muscle use, rales, rhonchi, wheezes - Cardiovascular Cardiovascular exam: Present: RRR, +S1, +S2. Absent: diastolic murmur, gallop, rubs, systolic murmur - GI/Abdominal Additional comments: obese, distended, ascites, gas distension - Extremities Exam Extremities exam: Present: pedal edema - Neurological Exam Neurological exam: Present: alert, CN II-XII intact, oriented X3, no focal deficits. Absent: pronater drift, facial droop, speech deficit - Skin Skin exam: Present: dry, intact Internal Medicine: Result - Labs CBC & Chem 7: 09/03/17 06:48 09/03/17 12:00 Labs: Short CBC 09/03/17 Range/Units 06:48 WBC 10.9 (4.3-11.1) K/mcL Hgb 9.5 L (11.5-15.4) g/dL Hct 28.8 L (35.3-44.9) % Plt Count 105 L (140-400) K/mcL Neutrophils # 6.0 (1.6-8.9) K/mcL BMP 09/02/17 09/03/17 18:05 12:00 Sodium 132 L Potassium 3.0 L 2.9 L Chloride 94 L Carbon Dioxide 31 H BUN 8 Creatinine 0.84 Glucose 78 Calcium 8.2 L Liver Function 09/03/17 Range/Units 12:00 Total Bilirubin 5.1 H (0.3-1.0) mg/dL AST 59 H (13-39) Units/L ALT 17 (7-52) Units/L Alkaline Phosphatase 140 H (34-104) Units/L Albumin 2.1 L (3.5-5.7) g/dL - ABG Interpretation ABG results: PT/INR, D-dimer PT 17.4 Seconds (9.4-12.1) H 08/31/17 07:53 - Impressions Impressions Liver Ultrasound 09/03/17 09:30 IMPRESSION: 1. Cirrhotic morphology of the liver with small to moderate volume ascites. 2. Stable dilation of the common bile duct dating back to 02/19/2016, measuring up to 1.2 cm. D/ / 09/03/2017 12:38:21 Елена Orozco MD / [facility] Castan[facility] Interpreting Provider: Елена Orozco MD - VTE Documentation of Mechanical Device: Intermittent pneumatic compression device Consult Discharge Plan - Plan Referrals: Sahra Laguna MD [Primary Care Provider] -
[2017-09-03] MEDS: *HR* OxyCODONE Immed Rel 5 MG TABLET PO PRN (21:24)
[2017-09-03] MEDS: traZODone 50 MG TABLET PO SCH (21:25)
[2017-09-04 07:29] LABS: BUN/Creatinine Ratio 11 (6-26); Blood Urea Nitrogen 9 mg/dL (6-20); Calcium 8.1 mg/dL (8.6-10.3); Carbon Dioxide 32 mEq/L (23-29); Chloride 95 mEq/L (98-107); Glucose 93 mg/dL (70-105); Osmolality,Calculated 268 (280-300); Sodium 130 mEq/L (136-145); eGFR For African Americans > 60 (> 60); eGFR For Non-African Americans > 60 (> 60)
[2017-09-04] MEDS: Insulin LISPRO 300 UNITS/3 ML VIAL SQ SCH ×4 (07:33→20:01)
[2017-09-04] MEDS: *HR* OxyCODONE Immed Rel 5 MG TABLET PO PRN ×2 (07:37→16:06)
[2017-09-04] MEDS: Furosemide 40 MG/4 ML VIAL IVP SCH ×2 (07:37→16:05)
[2017-09-04] MEDS: risperiDONE 1 MG TABLET PO SCH (07:37)
[2017-09-04] MEDS: Lactulose Oral Soln 20 GM/30 ML UDC PO SCH ×4 (07:38→20:47)
[2017-09-04 07:42] LABS: Basophils # 0.1 K/mcL (0.0-0.2); Basophils % 0.5 %; Eosinophils # 0.4 K/mcL (0.0-0.6); Eosinophils % 3.5 %; Hemoglobin 9.5 g/dL (11.5-15.4); Immature Granulocytes % 0.5 % (0-4); Lymphocytes # 2.7 K/mcL (0.6-4.6); Lymphocytes % 25.7 %; Mean Corpuscular HGB Conc 31.7 g/dL (31.6-35.5); Mean Corpuscular Hemoglobin 30.3 pg (28.0-33.3); Mean Corpuscular Volume 95.5 fL (83.0-100.0); Mean Platelet Volume 10.3 fL (9.4-12.4); Monocytes # 1.5 K/mcL (0.0-1.3); Monocytes % 14.5 %; Neutrophils # 5.8 K/mcL (1.6-8.9); Nucleated Red Blood Cells 0.2 /100 WBC (0); Platelet Count 117 K/mcL (140-400); Red Blood Count 3.14 M/mcL (3.82-4.97); Segmented Neutrophils % 55.3 %
--- NOTE | 2017-09-04 14:08 | Internal Med Progress Note ---
Date of Encounter: 09/04/17 Time of Encounter: 14:01 - Assessment and plan (1) Acute hepatic encephalopathy Current Visit: Yes Status: Acute Assessment and plan: has known history of cirrhosis. Mentation appears to be improving. Continue lactulose. (2) Anasarca Current Visit: Yes Status: Acute Assessment and plan: pedal edema, improving, continue lasix and aldactone (3) Liver cirrhosis Current Visit: Yes Status: Chronic Assessment and plan: with known cirrhosis. Child C, decompensated. S/p 2.6L paracentesis on . Repeat abdominal ultrasound unremarkable with old changes, minimal ascites.. Continue home Lasix, spironolactone, lactulose. GI following Qualifiers: Hepatic cirrhosis type: unspecified hepatic cirrhosis Ascites presence: with ascites Qualified Code(s): K74.60 - Unspecified cirrhosis of liver (4) Pneumonia Current Visit: Yes Status: Acute Assessment and plan: completed seven-day course of Zosyn Qualifiers: Pneumonia type: aspiration pneumonia Aspiration pneumonia type: due to gastric secretions Laterality: left Lung location: lower lobe of lung Qualified Code(s): J69.0 - Pneumonitis due to inhalation of food and vomit (5) COPD (chronic obstructive pulmonary disease) Current Visit: Yes Status: Chronic Qualifiers: COPD type: unspecified COPD Qualified Code(s): J44.9 - Chronic obstructive pulmonary disease, unspecified (6) Thrombocytopenia Current Visit: Yes Status: Chronic Assessment and plan: in the setting of known liver disease. PLTs 117, stable (7) DVT prophylaxis Current Visit: Yes Status: Acute Assessment and plan: SCD - Subjective Interval history: Seen and examined at bedside. Patient is new to me. Information obtained from chart review and patient report although patient is alert to self only, confused. She does not provide details, is a poor historian. Alert to self and will follow simple commands. No family at bedside for collateral. - Constitutional Vitals: Temp Pulse Resp BP Pulse Ox 98.1 F 106 18 101/65 94 09/04/17 11:10 09/04/17 11:10 09/04/17 11:10 09/04/17 11:10 09/04/17 11:10 General appearance: Present: cooperative, A&O X 1, morbidly obese, answers questions appropriately - Head Head exam: Present: atraumatic, normocephalic - Eye Eye exam: Present: PERRL, conjuntiva pink, sclera anicteric Pupils: Present: PERRL - Neck Neck exam general surgery: Present: supple, trachea midline. Absent: lymphadenopathy - Respiratory Respiratory exam: Present: CTAB. Absent: accessory muscle use, rales, rhonchi, wheezes - Cardiovascular Cardiovascular exam: Present: RRR, +S1, +S2. Absent: diastolic murmur, gallop, rubs, systolic murmur - GI/Abdominal GI/Abdominal exam: Present: normal bowel sounds, soft, no peritoneal signs. Absent: distended, tenderness - Extremities Exam Extremities exam: Present: pedal edema, warm, radial pulses palpable and symmetrical. Absent: calf tenderness, cyanotic - Neurological Exam Neurological exam: Present: CN II-XII intact, oriented X3, no focal deficits. Absent: pronater drift, facial droop, speech deficit - Skin Skin exam: Present: dry, intact Internal Medicine: Result - Labs CBC & Chem 7: 09/04/17 06:53 09/04/17 06:53 Labs: Short CBC 09/04/17 Range/Units 06:53 WBC 10.5 (4.3-11.1) K/mcL Hgb 9.5 L (11.5-15.4) g/dL Hct 30.0 L (35.3-44.9) % Plt Count 117 L (140-400) K/mcL Neutrophils # 5.8 (1.6-8.9) K/mcL BMP 09/04/17 06:53 Sodium 130 L Potassium 3.0 L Chloride 95 L Carbon Dioxide 32 H BUN 9 Creatinine 0.80 Glucose 93 Calcium 8.1 L - ABG Interpretation ABG results: PT/INR, D-dimer PT 17.4 Seconds (9.4-12.1) H 08/31/17 07:53 - VTE Documentation of Mechanical Device: Intermittent pneumatic compression device Consult Discharge Plan - Plan Referrals: Sahra Laguna MD [Primary Care Provider] -
[2017-09-04] MEDS: traZODone 50 MG TABLET PO SCH (20:46)
[2017-09-05 04:42] LABS: Hepatitis B Core IgM Reactive (Nonreactive)
[2017-09-05] MEDS: *HR* OxyCODONE Immed Rel 5 MG TABLET PO PRN ×2 (05:37→13:54)
[2017-09-05 06:32] LABS: Hematocrit 32.4 % (35.3-44.9); Hemoglobin 10.3 g/dL (11.5-15.4); Immature Platelets 5.9 % (1.1-6.1); Mean Corpuscular HGB Conc 31.8 g/dL (31.6-35.5); Mean Corpuscular Hemoglobin 30.8 pg (28.0-33.3); Mean Platelet Volume 10.6 fL (9.4-12.4); Red Blood Count 3.34 M/mcL (3.82-4.97); Red Cell Distribution Width 16.9 % (11.5-14.5)
[2017-09-05 07:08] LABS: Albumin 1.9 g/dL (3.5-5.7); Albumin/Globulin Ratio 0.4 (1.1-2.2); Bilirubin,Direct 1.6 mg/dL (0.0-0.2); Bilirubin,Indirect 1.9 mg/dL (0.0-1.2); Bilirubin,Total 3.5 mg/dL (0.3-1.0); Globulin 4.9 g/dL (2.4-3.5); Total Protein 6.8 g/dL (6.4-8.9)
[2017-09-05 07:09] LABS: Alanine Aminotransferase 17 Units/L (7-52); Albumin 1.9 g/dL (3.5-5.7); Albumin/Globulin Ratio 0.4 (1.1-2.2); Alkaline Phosphatase 146 Units/L (34-104); Aspartate Amino Transferase 66 Units/L (13-39); BUN/Creatinine Ratio 10 (6-26); Bilirubin,Total 3.5 mg/dL (0.3-1.0); Blood Urea Nitrogen 9 mg/dL (6-20); Calcium 8.3 mg/dL (8.6-10.3); Carbon Dioxide 32 mEq/L (23-29); Chloride 95 mEq/L (98-107); Globulin 4.8 g/dL (2.4-3.5); Glucose 79 mg/dL (70-105); Osmolality,Calculated 270 (280-300); Potassium 3.6 mEq/L (3.5-5.1); Sodium 131 mEq/L (136-145); Total Protein 6.7 g/dL (6.4-8.9); eGFR For African Americans > 60 (> 60); eGFR For Non-African Americans > 60 (> 60)
[2017-09-05] MEDS: Insulin LISPRO 300 UNITS/3 ML VIAL SQ SCH ×4 (08:10→21:01)
[2017-09-05 08:38] LABS: HBV Quant Interpretation DETECTED (Not Detected); HBV Quant Log by PCR >8.2 log IU
[2017-09-05] MEDS: Lactulose Oral Soln 20 GM/30 ML UDC PO SCH ×4 (10:08→21:02)
[2017-09-05] MEDS: risperiDONE 1 MG TABLET PO SCH (10:09)
[2017-09-05] MEDS: Furosemide 40 MG/4 ML VIAL IVP SCH ×2 (10:09→18:29)
--- NOTE | 2017-09-05 17:13 | Internal Med Progress Note ---
Date of Encounter: 09/06/17 Time of Encounter: 17:14 - Assessment and plan (1) Acute hepatic encephalopathy Current Visit: Yes Status: Acute Assessment and plan: has known history of cirrhosis. Mentation appears to be improving. Continue lactulose. (2) Anasarca Current Visit: Yes Status: Acute Assessment and plan: pedal edema improving, continue lasix and aldactone. Add albumin (3) Liver cirrhosis Current Visit: Yes Status: Chronic Assessment and plan: with known cirrhosis. Child C, decompensated. S/p 2.6L paracentesis on . Repeat abdominal ultrasound unremarkable with old changes, minimal ascites.. Continue home Lasix, spironolactone, lactulose. GI following Qualifiers: Hepatic cirrhosis type: unspecified hepatic cirrhosis Ascites presence: with ascites Qualified Code(s): K74.60 - Unspecified cirrhosis of liver (4) Pneumonia Current Visit: Yes Status: Acute Assessment and plan: completed seven-day course of Zosyn Qualifiers: Pneumonia type: aspiration pneumonia Aspiration pneumonia type: due to gastric secretions Laterality: left Lung location: lower lobe of lung Qualified Code(s): J69.0 - Pneumonitis due to inhalation of food and vomit (5) COPD (chronic obstructive pulmonary disease) Current Visit: Yes Status: Chronic Qualifiers: COPD type: unspecified COPD Qualified Code(s): J44.9 - Chronic obstructive pulmonary disease, unspecified (6) Thrombocytopenia Current Visit: Yes Status: Chronic Assessment and plan: in the setting of known liver disease. PLTs 117, stable (7) DVT prophylaxis Current Visit: Yes Status: Acute Assessment and plan: SCD - Subjective Interval history: Seen and examined at bedside, she is drowsy and lethargic and does not provide much information. She will respond to her name. Says she did not eat today. Discussed with RN and patient was apparently awake and alert earlier. She did eat breakfast and lunch. Refused afternoon dose of lactulose. - Constitutional Vitals: Temp Pulse Resp BP Pulse Ox 98 F 96 12 115/78 93 09/05/17 15:02 09/05/17 15:02 09/05/17 15:02 09/05/17 15:02 09/05/17 15:02 General appearance: Present: cooperative, A&O X 1, morbidly obese, answers questions appropriately - Head Head exam: Present: atraumatic, normocephalic - Eye Eye exam: Present: PERRL, conjuntiva pink, sclera anicteric Pupils: Present: PERRL - Neck Neck exam general surgery: Present: supple, trachea midline. Absent: lymphadenopathy - Respiratory Respiratory exam: Present: CTAB. Absent: accessory muscle use, rales, rhonchi, wheezes - Cardiovascular Cardiovascular exam: Present: RRR, +S1, +S2. Absent: diastolic murmur, gallop, rubs, systolic murmur - GI/Abdominal GI/Abdominal exam: Present: normal bowel sounds, soft, no peritoneal signs. Absent: distended, tenderness - Extremities Exam Extremities exam: Present: pedal edema, warm, radial pulses palpable and symmetrical. Absent: calf tenderness, cyanotic - Neurological Exam Neurological exam: Present: CN II-XII intact, oriented X3, no focal deficits. Absent: pronater drift, facial droop, speech deficit - Skin Skin exam: Present: dry, intact Internal Medicine: Result - Labs CBC & Chem 7: 09/06/17 04:00 09/06/17 04:00 Labs: Short CBC 09/05/17 Range/Units 05:53 WBC 12.0 H (4.3-11.1) K/mcL Hgb 10.3 L (11.5-15.4) g/dL Hct 32.4 L (35.3-44.9) % Plt Count 129 L (140-400) K/mcL BMP 09/05/17 05:53 Sodium 131 L Potassium 3.6 Chloride 95 L Carbon Dioxide 32 H BUN 9 Creatinine 0.89 Glucose 79 Calcium 8.3 L Liver Function 09/05/17 09/05/17 Range/Units 05:53 05:53 Total Bilirubin 3.5 H 3.5 H (0.3-1.0) mg/dL Direct Bilirubin 1.6 H (0.0-0.2) mg/dL AST 68 H 66 H (13-39) Units/L ALT 17 17 (7-52) Units/L Alkaline Phosphatase 150 H 146 H (34-104) Units/L Albumin 1.9 L 1.9 L (3.5-5.7) g/dL - ABG Interpretation ABG results: PT/INR, D-dimer PT 17.4 Seconds (9.4-12.1) H 08/31/17 07:53 - VTE Documentation of Mechanical Device: Intermittent pneumatic compression device Consult Discharge Plan - Plan Referrals: Sahra Laguna MD [Primary Care Provider] -
[2017-09-05] MEDS: traZODone 50 MG TABLET PO SCH (21:02)
[2017-09-06] MEDS: Albumin 25% 25gram/100mL 25 GM/100 ML IV.SOLN IVPB SCH ×3 (01:05→14:36)
[2017-09-06 04:17] LABS: Hematocrit 28.3 % (35.3-44.9); Mean Corpuscular HGB Conc 31.8 g/dL (31.6-35.5); Mean Corpuscular Hemoglobin 30.5 pg (28.0-33.3); Mean Corpuscular Volume 95.9 fL (83.0-100.0); Platelet Count 119 K/mcL (140-400); Red Blood Count 2.95 M/mcL (3.82-4.97); Red Cell Distribution Width 16.5 % (11.5-14.5)
[2017-09-06 04:33] LABS: Alanine Aminotransferase 16 Units/L (7-52); Albumin 2.4 g/dL (3.5-5.7); Albumin/Globulin Ratio 0.5 (1.1-2.2); Alkaline Phosphatase 135 Units/L (34-104); Aspartate Amino Transferase 61 Units/L (13-39); BUN/Creatinine Ratio 10 (6-26); Bilirubin,Total 3.6 mg/dL (0.3-1.0); Blood Urea Nitrogen 8 mg/dL (6-20); Calcium 8.4 mg/dL (8.6-10.3); Carbon Dioxide 32 mEq/L (23-29); Chloride 95 mEq/L (98-107); Globulin 4.5 g/dL (2.4-3.5); Glucose 92 mg/dL (70-105); Osmolality,Calculated 272 (280-300); Potassium 3.3 mEq/L (3.5-5.1); Sodium 132 mEq/L (136-145); Total Protein 6.9 g/dL (6.4-8.9); eGFR For African Americans > 60 (> 60); eGFR For Non-African Americans > 60 (> 60)
[2017-09-06] MEDS: Furosemide 40 MG/4 ML VIAL IVP SCH ×2 (09:45→16:53)
[2017-09-06] MEDS: risperiDONE 1 MG TABLET PO SCH (09:46)
[2017-09-06] MEDS: Lactulose Oral Soln 20 GM/30 ML UDC PO SCH ×5 (09:46→21:28)
[2017-09-06] MEDS: Insulin LISPRO 300 UNITS/3 ML VIAL SQ SCH ×4 (09:46→21:26)
[2017-09-06] MEDS ORDERED: Ipratropium/Albuterol Neb 3 ML IH PRN (10:23)
--- NOTE | 2017-09-06 10:23 | Internal Med Progress Note ---
Date of Encounter: 09/06/17 Time of Encounter: 10:19 - Assessment and plan (1) Acute hepatic encephalopathy Current Visit: Yes Status: Acute Assessment and plan: confused on arrival. Ammonia level 75 (has known history of cirrhosis). Patient has lived in [facility] for many years, has legal guardian. No known neck to can or available family. Discussed with change management administrator at [facility] who states patient possibly has mild cognitive impairment however baseline ambulatory and mentation alert and oriented 4. Ammonia level normalized with home lactulose. Remains alert to self only. Suspect has component of superimposed delirium. Cont lactulose, supportive care. Head CT pending to rule out/asses for acute intracranial abnormality. (2) Anasarca Current Visit: Yes Status: Acute Assessment and plan: in the setting of known liver disease; pedal edema improving. Continue lasix, aldactone. Add albumin X 6 doses. 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 Hep Bs Ag, Hep B core IgM and Hep C Ab reactive from 01/05/16. Child C, decompensated with anasarca, hepatic encephalopathy. S/p 2.6L paracentesis on 08/31/17. Repeat abdominal ultrasound unremarkable with stable CBD dilation, minimal ascites. Continue home Lasix, spironolactone, lactulose. GI following Qualifiers: Hepatic cirrhosis type: unspecified hepatic cirrhosis Ascites presence: with ascites Qualified Code(s): K74.60 - Unspecified cirrhosis of liver (4) Pneumonia Current Visit: Yes Status: Acute Assessment and plan: CXR showed LLL pneumonia; completed seven-day course of Zosyn. Will need follow- up imaging 4-6 weeks after completion of treatment to ensure resolution. Qualifiers: Pneumonia type: aspiration pneumonia Aspiration pneumonia type: due to gastric secretions Laterality: left Lung location: lower lobe of lung Qualified Code(s): J69.0 - Pneumonitis due to inhalation of food and vomit (5) COPD (chronic obstructive pulmonary disease) Current Visit: Yes Status: Chronic Assessment and plan: hx of COPD. No evidence of exacerbation. PRN breathing treatments. Qualifiers: COPD type: unspecified COPD Qualified Code(s): J44.9 - Chronic obstructive pulmonary disease, unspecified (6) Thrombocytopenia Current Visit: Yes Status: Chronic Assessment and plan: in the setting of known liver disease. PLTs stable. No active bleeding. (7) DVT prophylaxis Current Visit: Yes Status: Acute Assessment and plan: SCD - Subjective Interval history: Seen and examined at bedside, she is drowsy and lethargic but responsive. She is able to carry on a conversation but alert to self only. No family available for collateral. Discussed case with [facility] change management administrator whopatient very well. From what I understand patient may have some underlying mild cognitive impairment but baseline mentation is alert and oriented 4. She is ambulatory at [facility]. She has no known family and has a legal guardian. - Constitutional Vitals: Temp Pulse Resp BP Pulse Ox 98.0 F 96 18 99/64 90 09/06/17 07:35 09/06/17 07:35 09/06/17 07:35 09/06/17 09:51 09/06/17 07:35 General appearance: Present: cooperative, A&O X 1, morbidly obese, answers questions appropriately Internal Medicine: Result - Labs CBC & Chem 7: 09/06/17 04:00 09/06/17 04:00 Labs: Short CBC 09/06/17 Range/Units 04:00 WBC 9.9 (4.3-11.1) K/mcL Hgb 9.0 L (11.5-15.4) g/dL Hct 28.3 L (35.3-44.9) % Plt Count 119 L (140-400) K/mcL BMP 09/06/17 04:00 Sodium 132 L Potassium 3.3 L Chloride 95 L Carbon Dioxide 32 H BUN 8 Creatinine 0.80 Glucose 92 Calcium 8.4 L Liver Function 09/06/17 Range/Units 04:00 Total Bilirubin 3.6 H (0.3-1.0) mg/dL AST 61 H (13-39) Units/L ALT 16 (7-52) Units/L Alkaline Phosphatase 135 H (34-104) Units/L Albumin 2.4 L (3.5-5.7) g/dL - ABG Interpretation ABG results: PT/INR, D-dimer PT 17.4 Seconds (9.4-12.1) H 08/31/17 07:53 - Impressions Impressions Chest X-Ray 09/05/17 17:18 IMPRESSION: Persistent but improved left basilar airspace disease which may reflect improving pneumonia. Recommend follow-up imaging 4-6 weeks after completion of treatment to ensure resolution. D/ / 09/05/2017 17:43:41 Arlette Orozco MD / [facility] Interpreting Provider: Arlette Orozco MD - VTE Documentation of Mechanical Device: Intermittent pneumatic compression device Consult Discharge Plan - Plan Referrals: Sahra Laguna MD [Primary Care Provider] -
[2017-09-06 13:43] LABS: HCV Genotype by Sequencing 1A OR 1B
[2017-09-06 18:20] LABS: Bilirubin,Urine Negative (Negative); Blood,Urine Small (Negative); Clarity,Urine Cloudy (Clear); Color,Urine Yellow (Yellow); Glucose,Urine (UA) Normal (Normal); Ketones,Urine Negative (Negative); Leukocyte Esterase,Urine Moderate (Negative); Nitrite,Urine Negative (Negative); PH,Urine 7.5 pH Units (5.0-8.0); Protein,Urine Trace mg/dL (Neg-Trace); Specific Gravity,Urine 1.013 (1.010-1.025); Urobilinogen,Urine Normal (Normal)
[2017-09-06 18:22] LABS: Bacteria,Urine None Seen per hpf (None-Few); Squamous Epithelial Cell,Urine Many per lpf (None-Few)
[2017-09-06 18:31] LABS: Hyaline Casts,Urine Few per lpf (None-Few)
[2017-09-06 18:32] LABS: RBC,Urine 0-3 per hpf (0-3); Yeast,Urine Moderate per hpf (None Seen)
[2017-09-06] MEDS: traZODone 50 MG TABLET PO SCH (21:30)
[2017-09-07] MEDS: Albumin 25% 25gram/100mL 25 GM/100 ML IV.SOLN IVPB SCH ×3 (00:26→16:45)
[2017-09-07 05:36] LABS: Red Blood Count 2.69 M/mcL (3.82-4.97)
[2017-09-07 05:38] LABS: Hematocrit 26.1 % (35.3-44.9); Immature Platelets 4.2 % (1.1-6.1); Mean Corpuscular HGB Conc 30.7 g/dL (31.6-35.5); Mean Corpuscular Hemoglobin 29.7 pg (28.0-33.3); Mean Platelet Volume 10.5 fL (9.4-12.4)
[2017-09-07 05:51] LABS: Alanine Aminotransferase 12 Units/L (7-52); Albumin 2.9 g/dL (3.5-5.7); Albumin/Globulin Ratio 0.8 (1.1-2.2); Alkaline Phosphatase 109 Units/L (34-104); Aspartate Amino Transferase 52 Units/L (13-39); BUN/Creatinine Ratio 9 (6-26); Bilirubin,Total 4.2 mg/dL (0.3-1.0); Blood Urea Nitrogen 7 mg/dL (6-20); Calcium 8.7 mg/dL (8.6-10.3); Carbon Dioxide 31 mEq/L (23-29); Chloride 99 mEq/L (98-107); Globulin 3.5 g/dL (2.4-3.5); Glucose 74 mg/dL (70-105); Osmolality,Calculated 281 (280-300); Potassium 3.2 mEq/L (3.5-5.1); Sodium 137 mEq/L (136-145); Total Protein 6.4 g/dL (6.4-8.9); eGFR For African Americans > 60 (> 60); eGFR For Non-African Americans > 60 (> 60)
[2017-09-07] MEDS: Lactulose Oral Soln 20 GM/30 ML UDC PO SCH ×4 (09:00→20:54)
[2017-09-07] MEDS: Furosemide 40 MG/4 ML VIAL IVP SCH ×3 (09:01→20:55)
[2017-09-07] MEDS: Insulin LISPRO 300 UNITS/3 ML VIAL SQ SCH ×4 (09:01→20:57)
[2017-09-07] MEDS: risperiDONE 1 MG TABLET PO SCH (09:02)
[2017-09-07] MEDS ORDERED: Potassium Chloride 10 MEQ in 0.9 % Sodium Chloride 100 ML IVPB ONE (09:38)
[2017-09-07] MEDS: *HR* OxyCODONE Immed Rel 5 MG TABLET PO PRN ×2 (12:53→22:11)
--- NOTE | 2017-09-07 15:17 | Internal Med Progress Note ---
Date of Encounter: 09/07/17 Time of Encounter: 15:13 - Assessment and plan (1) Acute hepatic encephalopathy Current Visit: Yes Status: Acute Assessment and plan: Assessment and plan: Now she is oriented in place, continue lactulose Ammonia level was [address] scan of the head did not show any acute finding (2) Anasarca Current Visit: Yes Status: Acute Assessment and plan: pedal edema, improving, continue lasix IV , change dose to 40 mg IV 3 times a day and aldactone (3) Liver cirrhosis Current Visit: Yes Status: Chronic Assessment and plan: child C, decompensated GI eval noted repeat USS noted, unremarakble-0ld changes Continue lasix, spirnolactone, lactulose Qualifiers: Hepatic cirrhosis type: unspecified hepatic cirrhosis Ascites presence: with ascites Qualified Code(s): K74.60 - Unspecified cirrhosis of liver (4) Pneumonia Current Visit: Yes Status: Acute Assessment and plan: CXR showed LLL pneumonia discontinue zosyn, she has received it for 7 days Qualifiers: Pneumonia type: aspiration pneumonia Aspiration pneumonia type: due to gastric secretions Laterality: left Lung location: lower lobe of lung Qualified Code(s): J69.0 - Pneumonitis due to inhalation of food and vomit (5) Chronic respiratory failure with hypoxia Current Visit: Yes Status: Chronic Assessment and plan: chronic stable (6) DM2 (diabetes mellitus, type 2) Current Visit: Yes Status: Chronic Assessment and plan: controlled on current regimen, continue same Qualifiers: Diabetes mellitus terminal gauger supervisor insulin use: with correction use Diabetes mellitus complication status: with hyperglycemia Qualified Code(s): E11.65 - Type 2 diabetes mellitus with hyperglycemia; Z79.4 - senior care (current) use of insulin; Z79.4 - senior care (current) use of insulin; Z79.4 - senior care (current ) use of insulin; Z79.4 - senior care (current) use of insulin (7) Thrombocytopenia Current Visit: Yes Status: Chronic Assessment and plan: chronic stable (8) Coagulopathy Current Visit: Yes Status: Resolved Assessment and plan: resolved, due to liver disease, received FFP and Vit K (9) Bilirubinemia Current Visit: Yes Status: Acute Assessment and plan: due to liver disease, no stones on USS Continue to monitor - Subjective Interval history: Disoriented in time, denies any abdominal pain, no chest pressures of breath, confused, no fevers, no dysuria - Constitutional Vitals: Temp Pulse Resp BP Pulse Ox 98.6 F 108 18 114/70 91 09/07/17 12:35 09/07/17 12:35 09/07/17 12:35 09/07/17 12:35 09/07/17 12:35 General appearance: Present: cooperative, A&O X 2, morbidly obese, answers questions appropriately - Head Head exam: Present: atraumatic, normocephalic - Eye Eye exam: Present: PERRL, conjuntiva pink, sclera anicteric Pupils: Present: PERRL - Neck Neck exam general surgery: Present: supple, trachea midline. Absent: lymphadenopathy - Respiratory Respiratory exam: Present: CTAB. Absent: accessory muscle use, rales, rhonchi, wheezes - Cardiovascular Cardiovascular exam: Present: RRR, +S1, +S2. Absent: diastolic murmur, gallop, rubs, systolic murmur - GI/Abdominal GI/Abdominal exam: Present: normal bowel sounds, soft, no peritoneal signs. Absent: distended, tenderness - Extremities Exam Extremities exam: Present: pedal edema (+3 pitting edema in both lower extremities), warm, radial pulses palpable and symmetrical. Absent: calf tenderness, cyanotic - Neurological Exam Neurological exam: Present: CN II-XII intact, oriented X3, no focal deficits. Absent: pronater drift, facial droop, speech deficit - Skin Skin exam: Present: dry, intact Internal Medicine: Result - Labs CBC & Chem 7: 09/07/17 05:06 09/07/17 05:06 Labs: Short CBC 09/07/17 Range/Units 05:06 WBC 6.3 (4.3-11.1) K/mcL Hgb 8.0 L (11.5-15.4) g/dL Hct 26.1 L (35.3-44.9) % Plt Count 99 L (140-400) K/mcL BMP 09/07/17 05:06 Sodium 137 Potassium 3.2 L Chloride 99 Carbon Dioxide 31 H BUN 7 Creatinine 0.76 Glucose 74 Calcium 8.7 Liver Function 09/07/17 Range/Units 05:06 Total Bilirubin 4.2 H (0.3-1.0) mg/dL AST 52 H (13-39) Units/L ALT 12 (7-52) Units/L Alkaline Phosphatase 109 H (34-104) Units/L Albumin 2.9 L (3.5-5.7) g/dL Urine 09/06/17 Range/Units 18:11 Urine Color Yellow (Yellow) Urine Clarity Cloudy A (Clear) Urine pH 7.5 (5.0-8.0) pH Units Ur Specific Alpha 1.013 (1.010-1.025) Urine Protein Trace (Neg-Trace) mg/dL Urine Glucose (UA) Normal (Normal) mg/dL - ABG Interpretation ABG results: PT/INR, D-dimer PT 17.4 Seconds (9.4-12.1) H 08/31/17 07:53 - VTE Documentation of Mechanical Device: Intermittent pneumatic compression device Consult Discharge Plan - Plan Referrals: Sahra Laguna MD [Primary Care Provider] -
[2017-09-07] MEDS: traZODone 50 MG TABLET PO SCH (20:54)
[2017-09-08 06:21] LABS: Hematocrit 26.1 % (35.3-44.9)
[2017-09-08 06:23] LABS: Hemoglobin 8.1 g/dL (11.5-15.4); Immature Platelets 4.9 % (1.1-6.1); Mean Corpuscular Hemoglobin 30.3 pg (28.0-33.3); Mean Corpuscular Volume 97.8 fL (83.0-100.0); Mean Platelet Volume 10.4 fL (9.4-12.4); Red Blood Count 2.67 M/mcL (3.82-4.97); Red Cell Distribution Width 17.2 % (11.5-14.5)
[2017-09-08 06:44] LABS: Alanine Aminotransferase 14 Units/L (7-52); Albumin 3.2 g/dL (3.5-5.7); Albumin/Globulin Ratio 0.9 (1.1-2.2); Alkaline Phosphatase 112 Units/L (34-104); Aspartate Amino Transferase 61 Units/L (13-39); BUN/Creatinine Ratio 7 (6-26); Bilirubin,Total 4.1 mg/dL (0.3-1.0); Blood Urea Nitrogen 6 mg/dL (6-20); Carbon Dioxide 30 mEq/L (23-29); Chloride 99 mEq/L (98-107); Globulin 3.7 g/dL (2.4-3.5); Glucose 87 mg/dL (70-105); Osmolality,Calculated 277 (280-300); Potassium 3.5 mEq/L (3.5-5.1); Sodium 135 mEq/L (136-145); Total Protein 6.9 g/dL (6.4-8.9); eGFR For African Americans > 60 (> 60); eGFR For Non-African Americans > 60 (> 60)
[2017-09-08] MEDS: Insulin LISPRO 300 UNITS/3 ML VIAL SQ SCH ×2 (07:55→12:29)
[2017-09-08] MEDS: Furosemide 40 MG/4 ML VIAL IVP SCH (08:21)
[2017-09-08] MEDS: Lactulose Oral Soln 20 GM/30 ML UDC PO SCH (08:21)
[2017-09-08] MEDS: *HR* OxyCODONE Immed Rel 5 MG TABLET PO PRN (08:21)
[2017-09-08] MEDS: risperiDONE 1 MG TABLET PO SCH (08:21)
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
[2017-09-08 11:29] VITALS: BP 104/67
--- NOTE | 2017-09-08 11:35 | Physician Discharge Referral ---
ExtendedCare Referral Info Provider in Charge after Transfer: PCP Institutional Level of Care: Skilled - Diagnosis (1) Acute hepatic encephalopathy Priority: Primary Status: Acute - Transfer Medications Prescriptions: OxyCODONE Immed Rel [Roxicodone 5 MG] 5 mg PO Q6HR PRN 7 Days #28 tablet PRN Reason: Moderate Pain Home Medications: Albuterol Sulfate [Proair Hfa] 1 puff IH Q4H PRN #1 inh 06/06/16 [Rx] Duloxetine HCl [Cymbalta] 60 mg PO DAILY 06/08/16 [History] Omeprazole [PriLOSEC] 20 mg PO DAILY 06/08/16 [History] Potassium Chloride [K-Tab ER] 20 meq PO DAILY 06/08/16 [History] Insulin LISPRO [HumaLOG] 0 units SQ TIDAC vial 06/18/16 [Rx] Ipratropium/Albuterol Neb [Duoneb] 3 ml IH [id number] #30 inhsol 06/18/16 [Rx] Insulin Glargine,Hum.rec.anlog [Basaglar Kwikpen U-100] 0 unit SQ DAILY [History] Meloxicam 15 mg PO DAILY 08/27/17 [History] Metoprolol [Lopressor] 25 mg PO DAILY 08/27/17 [History] Naproxen 500 mg PO BID PRN 08/27/17 [History] Tizanidine HCl 2 mg PO TID PRN 08/27/17 [History] risperiDONE [Risperidone] 1 mg PO DAILY 08/27/17 [History] traZODone [TraZODone] 50 mg PO HS 08/27/17 [History] Furosemide [Lasix] 40 mg PO TID #0 09/08/17 [Rx] Lactulose 20 gm PO QID udc 09/08/17 [Rx] OxyCODONE Immed Rel [Roxicodone 5 MG] 5 mg PO Q6HR PRN 7 Days #28 tablet [Rx] Spironolactone [Aldactone] 50 mg PO BID #0 09/08/17 [Rx] Allergies/Adverse Reactions: 3 Allergy/AdvReac Type Severity Reaction Status Date / Time codeine AdvReac Palpitation Verified 06/08/16 18:40 s - Respiratory Orders Smoking Cessation: Smoking cessation has been advised. For more information, call the [place] Tobacco Quit Line at 9-936-PAKN-NOW. - Advance Directives Code Status: Full Code - Diet Orders No Added Salt (SHERRELL) House Supplement per Dietary: Lasix was increased to 40 mg 3 times a day, spironolactone 50 mg twice a day. Lactulose will be taken 4 times a day ( needs to be very compliant) CERTIFICATION: I certify that the transfer of the above named patient to an Extended Care Facility is necessary for the continuing treatment of the diagnosis listed. The above information is true and accurate reflection of patient's current condition. Confidential - Redisclosure prohibited without a patient's written consent.
== END 2017-09-08 15:13 ==
LOC: EMEROO 02:35 → 3ANU 02:35 → SUATTDRO 07:34
PROVIDERS: ADMIT Family Medicine; ATTEND Internal Medicine

== ENCOUNTER 2017-09-17 22:05 | Inpatient (IN) ==
[2017-09-17] MEDS ORDERED: Ondansetron 4 MG/2 ML VIAL IVP ONE (22:26)
[2017-09-17 22:40] LABS: Basophils % 0.5 %; Eosinophils % 2.5 %; Mean Corpuscular Volume 95.2 fL (83.0-100.0)
[2017-09-17 22:42] LABS: Basophils # 0.1 K/mcL (0.0-0.2); Eosinophils # 0.3 K/mcL (0.0-0.6); Hematocrit 31.9 % (35.3-44.9); Hemoglobin 10.4 g/dL (11.5-15.4); Immature Platelets 4.7 % (1.1-6.1); Lymphocytes # 3.2 K/mcL (0.6-4.6); Lymphocytes % 27.7 %; Mean Corpuscular HGB Conc 32.6 g/dL (31.6-35.5); Mean Platelet Volume 11.4 fL (9.4-12.4); Monocytes # 1.4 K/mcL (0.0-1.3); Neutrophils # 6.5 K/mcL (1.6-8.9); Nucleated Red Blood Cells 0.3 /100 WBC (0); Red Blood Count 3.35 M/mcL (3.82-4.97); Red Cell Distribution Width 17.5 % (11.5-14.5); Segmented Neutrophils % 56.3 %
[2017-09-17 22:44] LABS: Platelet Count 93 K/mcL (140-400)
[2017-09-17 22:58] LABS: Alanine Aminotransferase 19 Units/L (7-52); Albumin 3.2 g/dL (3.5-5.7); Albumin/Globulin Ratio 0.6 (1.1-2.2); Alkaline Phosphatase 210 Units/L (34-104); Aspartate Amino Transferase 52 Units/L (13-39); BUN/Creatinine Ratio 13 (6-26); Bilirubin,Direct 2.1 mg/dL (0.0-0.2); Bilirubin,Indirect 2.5 mg/dL (0.0-1.2); Bilirubin,Total 4.6 mg/dL (0.3-1.0); Blood Urea Nitrogen 17 mg/dL (6-20); Calcium 9.2 mg/dL (8.6-10.3); Carbon Dioxide 23 mEq/L (23-29); Chloride 102 mEq/L (98-107); Globulin 5.1 g/dL (2.4-3.5); Glucose 92 mg/dL (70-105); Lipase 51 Units/L (11-82); Osmolality,Calculated 277 (280-300); Potassium 3.5 mEq/L (3.5-5.1); Sodium 133 mEq/L (136-145); Total Protein 8.3 g/dL (6.4-8.9); eGFR For African Americans 52 (> 60); eGFR For Non-African Americans 43 (> 60)
[2017-09-17 22:59] LABS: Troponin I < 0.03 ng/mL (< 0.04)
[2017-09-17 23:18] LABS: Bilirubin,Urine Negative (Negative); Blood,Urine Negative (Negative); Clarity,Urine Cloudy (Clear); Color,Urine Yellow (Yellow); Glucose,Urine (UA) Normal (Normal); Ketones,Urine Negative (Negative); Leukocyte Esterase,Urine Trace (Negative); Nitrite,Urine Negative (Negative); Protein,Urine Negative (Neg-Trace); Specific Gravity,Urine 1.015 (1.010-1.025); Urobilinogen,Urine Normal (Normal)
[2017-09-17 23:45] LABS: Hyaline Casts,Urine Few per lpf (None-Few); Squamous Epithelial Cell,Urine Many per lpf (None-Few)
[2017-09-17 23:46] LABS: Amorphous Sediment,Urine Few (Few); WBC,Urine 0-3 per hpf (0-3)
[2017-09-17] MEDS ORDERED: Levofloxacin 750 MG/150 ML 750 MG/150 ML BAG IVPB ONE (23:56)
[2017-09-17] MEDS ORDERED: Piperacillin/Tazobactam 3.375 GM in 0.9 % Sodium Chloride Mini Bag 100 ML IVPB ONE (23:56)
--- NOTE | 2017-09-18 00:40 | Emergency Department Note ---
Disposition Clinical Impression: LONG (acute kidney injury) Pneumonia Qualifiers: Pneumonia type: due to unspecified organism Laterality: unspecified laterality Lung location: unspecified part of lung Qualified Code(s): J18.9 - Pneumonia, unspecified organism Disposition: Admitted As Inpatient Condition: Good Referrals: NONE,PCP [Primary Care Provider] - Time of Disposition: 00:45 General Adult HPI - General Chief complaint: ED Abdominal Pain Stated complaint: Abdominal Pain Time Seen by Provider: 09/17/17 22:17 Source: EMS Mode of arrival: EMS Limitations: altered mental status Nursing Notes Reviewed: Yes Vital Signs Reviewed: Yes - History of Present Illness HPI Narrative: 57-year-old female with known history of ascites and cognitive delay presenting to the emergency department with chief complaint of abdominal pain and shortness of breath. Patient is coming from an assisted living facility. She states she has been having increased shortness of breath and abdominal pain that got acutely worse today. Denies nausea, vomiting or diarrhea. Patient does disclose distended abdomen. Unable to obtain much of the history of present illness due to patient's cognitive ability. Pain Scale: 7 - Related Data Home Medications Medication Instructions Recorded Confirmed Duloxetine HCl [Cymbalta] 60 mg PO DAILY 06/08/16 08/27/17 Omeprazole [PriLOSEC] 20 mg PO DAILY 06/08/16 08/27/17 Potassium Chloride [K-Tab ER] 20 meq PO DAILY 06/08/16 08/27/17 Insulin Glargine,Hum.rec.anlog 0 unit SQ DAILY 08/27/17 [Basaglar Kwikpen U-100] Meloxicam 15 mg PO DAILY 08/27/17 08/27/17 Metoprolol [Lopressor] 25 mg PO DAILY 08/27/17 08/27/17 Naproxen 500 mg PO BID PRN 08/27/17 08/27/17 Tizanidine HCl 2 mg PO TID PRN 08/27/17 08/27/17 risperiDONE [Risperidone] 1 mg PO DAILY 08/27/17 08/27/17 traZODone [TraZODone] 50 mg PO HS 08/27/17 08/27/17 Previous Rx's Medication Instructions Recorded Albuterol Sulfate [Proair Hfa] 1 puff IH Q4H PRN #1 inh 06/06/16 Insulin LISPRO [HumaLOG] 0 units SQ TIDAC vial 06/18/16 Ipratropium/Albuterol Neb [Duoneb] 3 ml IH [id number] #30 inhsol 06/18/16 Furosemide [Lasix] 40 mg PO TID #0 09/08/17 Lactulose 20 gm PO QID udc 09/08/17 OxyCODONE Immed Rel [Roxicodone 5 5 mg PO Q6HR PRN 7 Days #28 tablet 09/08/17 MG] Spironolactone [Aldactone] 50 mg PO BID #0 09/08/17 Allergies Allergy/AdvReac Type Severity Reaction Status Date / Time codeine AdvReac Anaphylaxis Verified 09/17/17 22:12 All systems ED: reviewed and negative except as stated. Gastrointestinal: Reports: abdominal pain Past Medical History - Past Medical History Attestation: Yes The following information was validated with the patient. Medical history: Reports: cirrhosis, COPD, liver disease Surgical history: Reports: cholecystectomy Psychiatric history: Reports: anxiety RELIGIOUS EDUCATION DIRECTOR history: Reports: no RELIGIOUS EDUCATION DIRECTOR history, other - Social History Smoking Status: Light tobacco smoker Smokeless Tobacco Status: No Alcohol use: Reports: none Drug use: Reports: none Physical Exam - General Limitations: no limitations General appearance: alert, in no apparent distress - Head Head exam: atraumatic, normocephalic, normal inspection - Eye Eye exam: Present: normal appearance. Absent: scleral icterus, conjunctival injection - ENT ENT exam: normal exam, mucous membranes moist - Neck Neck exam: Present: normal inspection, full ROM. Absent: tenderness, meningismus - Chest Chest inspection: Present: normal inspection, symmetric chest wall rise. Absent : tenderness, rash - Respiratory Respiratory exam: Present: normal lung sounds bilaterally. Absent: respiratory distress, wheezes - Cardiovascular Cardiovascular exam: Present: normal rhythm, normal heart sounds - Abdominal Exam Abdominal exam: Present: soft, distention. Absent: guarding, rebound, rigidity - Extremities Exam Extremities exam: Present: normal inspection, full ROM - Neurological Exam Neurological exam: Present: alert - Psychiatric Psychiatric exam: Present: normal affect, normal mood - Skin Skin exam: Present: warm, intact Course Course Narrative: 57-year-old female presenting with abdominal pain and shortness of breath. Patient states last time this happened she needed to get fluids taken off her. Patient unable to provide majority of history of present illness. On physical exam she has distended abdomen. Otherwise physical exam benign. There are ecchymosis noted along the abdomen which she states is from her insulin injections. We will perform basic laboratory analysis including an ammonia level along with a CT of the abdomen and pelvis. Patient is alert and oriented 2 which is baseline for the patient. Vital signs stable at this time. Disposition pending results. - Reevaluation(s) Reevaluation #1: CT of the abdomen and pelvis shows Left greater than right basilar airspace disease and effusions. Increasing ascites Findings raise the question of underlying portal hypertension. There are findings suggestive of mild colitis as well. Soft tissue attenuation medial to the right kidney in this may represent a small focus of interval hemorrhage, however enlarging lymph node is favored given that from the other lymph nodes are larger. Increasing distention of small bowel suggesting ileus. Slight development of right sided hydronephrosis. X-ray shows possible pneumonitis. Laboratory analysis shows acute kidney injury. At this time we will provide the patient with some fluids along with vancomycin, Levaquin, Zosyn for healthcare acquired pneumonia. Patient is alert and oriented 2 in the room which is baseline. Vital signs stable. I spoke with the hospitalist on-call who agrees to accept the patient at this time. Vital Signs Temperature 97.8 F 09/17/17 22:13 Pulse Rate 118 09/17/17 22:13 Respiratory Rate 18 09/17/17 22:13 Blood Pressure 144/100 09/17/17 22:13 O2 Sat by Pulse Oximetry 94 09/17/17 22:13 Temperature 97.8 F 09/17/17 22:13 Pulse Rate 123 09/18/17 00:02 Respiratory Rate 16 09/18/17 00:02 Blood Pressure 132/86 09/18/17 00:02 O2 Sat by Pulse Oximetry 95 09/18/17 00:02 Oxygen Delivery Oxygen Delivery Room Air Medical Decision Making - Lab Data Result diagrams: 09/17/17 22:19 09/17/17 22:19 Lab Results 09/17/17 09/17/17 09/17/17 Range/Units 22:19 22:19 22:19 WBC 11.6 H (4.3-11.1) K/mcL RBC 3.35 L (3.82-4.97) M/mcL Hgb 10.4 L (11.5-15.4) g/dL Hct 31.9 L (35.3-44.9) % MCV 95.2 (83.0-100.0) fL MCH 31.0 (28.0-33.3) pg MCHC 32.6 (31.6-35.5) g/dL RDW 17.5 H (11.5-14.5) % Plt Count 93 L (140-400) K/mcL MPV 11.4 (9.4-12.4) fL Immature Gran % 1.0 (0-4) % Seg Neutrophils % 56.3 % Lymphocytes % 27.7 % Monocytes % 12.0 % Eosinophils % 2.5 % Basophils % 0.5 % Neutrophils # 6.5 (1.6-8.9) K/mcL Lymphocytes # 3.2 (0.6-4.6) K/mcL Monocytes # 1.4 H (0.0-1.3) K/mcL Eosinophils # 0.3 (0.0-0.6) K/mcL Basophils # 0.1 (0.0-0.2) K/mcL Nucleated RBCs/100 WBC 0.3 H (0) /100 WBC Immature Plt Fraction 4.7 (1.1-6.1) % Sodium 133 L (136-145) mEq/L Potassium 3.5 (3.5-5.1) mEq/L Chloride 102 (98-107) mEq/L Carbon Dioxide 23 (23-29) mEq/L BUN 17 (6-20) mg/dL Creatinine 1.30 H (0.60-1.20) mg/dL Est GFR ( Amer) 52 L (> 60) Est GFR (Non-Af Amer) 43 L (> 60) BUN/Creatinine Ratio 13 (6-26) Glucose 92 (70-105) mg/dL Calculated Osmolality 277 L (280-300) Calcium 9.2 (8.6-10.3) mg/dL Total Bilirubin 4.6 H (0.3-1.0) mg/dL Direct Bilirubin 2.1 H (0.0-0.2) mg/dL Indirect Bilirubin 2.5 H (0.0-1.2) mg/dL AST 52 H (13-39) Units/L ALT 19 (7-52) Units/L Alkaline Phosphatase 210 H (34-104) Units/L Ammonia 35 (16-53) mcmol/L Troponin I < 0.03 (< 0.04) ng/mL Serum Total Protein 8.3 (6.4-8.9) g/dL Albumin 3.2 L (3.5-5.7) g/dL Globulin 5.1 H (2.4-3.5) g/dL Albumin/Globulin Ratio 0.6 L (1.1-2.2) Lipase 51 (11-82) Units/L Urine Color (Yellow) Urine Clarity (Clear) Urine pH (5.0-8.0) pH Units Ur Specific [place] (1.010-1.025) Urine Protein (Neg-Trace) mg/dL Urine Glucose (UA) (Normal) mg/dL Urine Ketones (Negative) mg/dL Urine Blood (Negative) Urine Nitrite (Negative) Urine Bilirubin (Negative) Urine Urobilinogen (Normal) mg/dL Ur Leukocyte Esterase (Negative) Urine Microscopic WBC (0-3) per hpf Ur Squamous Epith Cells (None-Few) per lpf Amorphous Sediment (Few) Hyaline Casts (None-Few) per lpf Ur Culture Indicated? (NO) 09/17/17 Range/Units 23:08 WBC (4.3-11.1) K/mcL RBC (3.82-4.97) M/mcL Hgb (11.5-15.4) g/dL Hct (35.3-44.9) % MCV (83.0-100.0) fL MCH (28.0-33.3) pg MCHC (31.6-35.5) g/dL RDW (11.5-14.5) % Plt Count (140-400) K/mcL MPV (9.4-12.4) fL Immature Gran % (0-4) % Seg Neutrophils % % Lymphocytes % % Monocytes % % Eosinophils % % Basophils % % Neutrophils # (1.6-8.9) K/mcL Lymphocytes # (0.6-4.6) K/mcL Monocytes # (0.0-1.3) K/mcL Eosinophils # (0.0-0.6) K/mcL Basophils # (0.0-0.2) K/mcL Nucleated RBCs/100 WBC (0) /100 WBC Immature Plt Fraction (1.1-6.1) % Sodium (136-145) mEq/L Potassium (3.5-5.1) mEq/L Chloride (98-107) mEq/L Carbon Dioxide (23-29) mEq/L BUN (6-20) mg/dL Creatinine (0.60-1.20) mg/dL Est GFR ( Amer) (> 60) Est GFR (Non-Af Amer) (> 60) BUN/Creatinine Ratio (6-26) Glucose (70-105) mg/dL Calculated Osmolality (280-300) Calcium (8.6-10.3) mg/dL Total Bilirubin (0.3-1.0) mg/dL Direct Bilirubin (0.0-0.2) mg/dL Indirect Bilirubin (0.0-1.2) mg/dL AST (13-39) Units/L ALT (7-52) Units/L Alkaline Phosphatase (34-104) Units/L Ammonia (16-53) mcmol/L Troponin I (< 0.04) ng/mL Serum Total Protein (6.4-8.9) g/dL Albumin (3.5-5.7) g/dL Globulin (2.4-3.5) g/dL Albumin/Globulin Ratio (1.1-2.2) Lipase (11-82) Units/L Urine Color Yellow (Yellow) Urine Clarity Cloudy A (Clear) Urine pH 6.0 (5.0-8.0) pH Units Ur Specific [place] 1.015 (1.010-1.025) Urine Protein Negative (Neg-Trace) mg/dL Urine Glucose (UA) Normal (Normal) mg/dL Urine Ketones Negative (Negative) mg/dL Urine Blood Negative (Negative) Urine Nitrite Negative (Negative) Urine Bilirubin Negative (Negative) Urine Urobilinogen Normal (Normal) mg/dL Ur Leukocyte Esterase Trace H (Negative) Urine Microscopic WBC 0-3 (0-3) per hpf Ur Squamous Epith Cells Many H (None-Few) per lpf Amorphous Sediment Few (Few) Hyaline Casts Few (None-Few) per lpf Ur Culture Indicated? NO. (NO) - EKG Data EKG #1 EKG attestation: Yes I reviewed and interpreted this EKG. EKG results narrative: Sinus tachycardia. 116 bpm. NM interval 108, QRS 91, QTc 451. No signs of acute ST segment elevation or ischemia. Compared to previous EKG completed on 08/28/2017 no significant changes noted
--- NOTE | 2017-09-18 00:55 | Emergency Department Note ---
Disposition Clinical Impression: LONG (acute kidney injury) Pneumonia Qualifiers: Pneumonia type: due to unspecified organism Laterality: unspecified laterality Lung location: unspecified part of lung Qualified Code(s): J18.9 - Pneumonia, unspecified organism Disposition: Admitted As Inpatient Condition: Good Referrals: NONE,PCP [Primary Care Provider] - Forms: ED Satisfaction Letter, Work/School Release General Adult HPI - General Chief complaint: ED Abdominal Pain Stated complaint: Abdominal Pain Time Seen by Provider: 09/17/17 22:17 Source: EMS Mode of arrival: EMS Limitations: no limitations Nursing Notes Reviewed: Yes Vital Signs Reviewed: Yes - History of Present Illness Pain Scale: 7 - Related Data Home Medications Medication Instructions Recorded Confirmed Duloxetine HCl [Cymbalta] 60 mg PO DAILY 06/08/16 08/27/17 Omeprazole [PriLOSEC] 20 mg PO DAILY 06/08/16 08/27/17 Potassium Chloride [K-Tab ER] 20 meq PO DAILY 06/08/16 08/27/17 Insulin Glargine,Hum.rec.anlog 0 unit SQ DAILY 08/27/17 [Basaglar Kwikpen U-100] Meloxicam 15 mg PO DAILY 08/27/17 08/27/17 Metoprolol [Lopressor] 25 mg PO DAILY 08/27/17 08/27/17 Naproxen 500 mg PO BID PRN 08/27/17 08/27/17 Tizanidine HCl 2 mg PO TID PRN 08/27/17 08/27/17 risperiDONE [Risperidone] 1 mg PO DAILY 08/27/17 08/27/17 traZODone [TraZODone] 50 mg PO HS 08/27/17 08/27/17 Previous Rx's Medication Instructions Recorded Albuterol Sulfate [Proair Hfa] 1 puff IH Q4H PRN #1 inh 06/06/16 Insulin LISPRO [HumaLOG] 0 units SQ TIDAC vial 06/18/16 Ipratropium/Albuterol Neb [Duoneb] 3 ml IH [id number] #30 inhsol 06/18/16 Furosemide [Lasix] 40 mg PO TID #0 09/08/17 Lactulose 20 gm PO QID udc 09/08/17 OxyCODONE Immed Rel [Roxicodone 5 5 mg PO Q6HR PRN 7 Days #28 tablet 09/08/17 MG] Spironolactone [Aldactone] 50 mg PO BID #0 09/08/17 Allergies Allergy/AdvReac Type Severity Reaction Status Date / Time codeine AdvReac Anaphylaxis Verified 09/17/17 22:12 Gastrointestinal: Reports: abdominal pain Past Medical History - Past Medical History Medical history: Reports: cirrhosis, COPD, liver disease Surgical history: Reports: cholecystectomy Psychiatric history: Reports: anxiety SQE history: Reports: no SQE history, other - Social History Smoking Status: Light tobacco smoker Smokeless Tobacco Status: No Alcohol use: Reports: none Drug use: Reports: none Physical Exam - General Limitations: no limitations General appearance: alert, in no apparent distress Course Vital Signs Temperature 97.8 F 09/17/17 22:13 Pulse Rate 118 09/17/17 22:13 Respiratory Rate 18 09/17/17 22:13 Blood Pressure 144/100 09/17/17 22:13 O2 Sat by Pulse Oximetry 94 09/17/17 22:13 Temperature 97.8 F 09/17/17 22:13 Pulse Rate 123 09/18/17 00:02 Respiratory Rate 16 09/18/17 00:02 Blood Pressure 132/86 09/18/17 00:02 O2 Sat by Pulse Oximetry 95 09/18/17 00:02 Oxygen Delivery Oxygen Delivery Room Air Medical Decision Making - Lab Data Result diagrams: 09/17/17 22:19 09/17/17 22:19 Lab Results 09/17/17 09/17/17 09/17/17 Range/Units 22:19 22:19 22:19 WBC 11.6 H (4.3-11.1) K/mcL RBC 3.35 L (3.82-4.97) M/mcL Hgb 10.4 L (11.5-15.4) g/dL Hct 31.9 L (35.3-44.9) % MCV 95.2 (83.0-100.0) fL MCH 31.0 (28.0-33.3) pg MCHC 32.6 (31.6-35.5) g/dL RDW 17.5 H (11.5-14.5) % Plt Count 93 L (140-400) K/mcL MPV 11.4 (9.4-12.4) fL Immature Gran % 1.0 (0-4) % Seg Neutrophils % 56.3 % Lymphocytes % 27.7 % Monocytes % 12.0 % Eosinophils % 2.5 % Basophils % 0.5 % Neutrophils # 6.5 (1.6-8.9) K/mcL Lymphocytes # 3.2 (0.6-4.6) K/mcL Monocytes # 1.4 H (0.0-1.3) K/mcL Eosinophils # 0.3 (0.0-0.6) K/mcL Basophils # 0.1 (0.0-0.2) K/mcL Nucleated RBCs/100 WBC 0.3 H (0) /100 WBC Immature Plt Fraction 4.7 (1.1-6.1) % Sodium 133 L (136-145) mEq/L Potassium 3.5 (3.5-5.1) mEq/L Chloride 102 (98-107) mEq/L Carbon Dioxide 23 (23-29) mEq/L BUN 17 (6-20) mg/dL Creatinine 1.30 H (0.60-1.20) mg/dL Est GFR ( Amer) 52 L (> 60) Est GFR (Non-Af Amer) 43 L (> 60) BUN/Creatinine Ratio 13 (6-26) Glucose 92 (70-105) mg/dL Calculated Osmolality 277 L (280-300) Calcium 9.2 (8.6-10.3) mg/dL Total Bilirubin 4.6 H (0.3-1.0) mg/dL Direct Bilirubin 2.1 H (0.0-0.2) mg/dL Indirect Bilirubin 2.5 H (0.0-1.2) mg/dL AST 52 H (13-39) Units/L ALT 19 (7-52) Units/L Alkaline Phosphatase 210 H (34-104) Units/L Ammonia 35 (16-53) mcmol/L Troponin I < 0.03 (< 0.04) ng/mL Serum Total Protein 8.3 (6.4-8.9) g/dL Albumin 3.2 L (3.5-5.7) g/dL Globulin 5.1 H (2.4-3.5) g/dL Albumin/Globulin Ratio 0.6 L (1.1-2.2) Lipase 51 (11-82) Units/L Urine Color (Yellow) Urine Clarity (Clear) Urine pH (5.0-8.0) pH Units Ur Specific Emmalena (1.010-1.025) Urine Protein (Neg-Trace) mg/dL Urine Glucose (UA) (Normal) mg/dL Urine Ketones (Negative) mg/dL Urine Blood (Negative) Urine Nitrite (Negative) Urine Bilirubin (Negative) Urine Urobilinogen (Normal) mg/dL Ur Leukocyte Esterase (Negative) Urine Microscopic WBC (0-3) per hpf Ur Squamous Epith Cells (None-Few) per lpf Amorphous Sediment (Few) Hyaline Casts (None-Few) per lpf Ur Culture Indicated? (NO) 09/17/17 Range/Units 23:08 WBC (4.3-11.1) K/mcL RBC (3.82-4.97) M/mcL Hgb (11.5-15.4) g/dL Hct (35.3-44.9) % MCV (83.0-100.0) fL MCH (28.0-33.3) pg MCHC (31.6-35.5) g/dL RDW (11.5-14.5) % Plt Count (140-400) K/mcL MPV (9.4-12.4) fL Immature Gran % (0-4) % Seg Neutrophils % % Lymphocytes % % Monocytes % % Eosinophils % % Basophils % % Neutrophils # (1.6-8.9) K/mcL Lymphocytes # (0.6-4.6) K/mcL Monocytes # (0.0-1.3) K/mcL Eosinophils # (0.0-0.6) K/mcL Basophils # (0.0-0.2) K/mcL Nucleated RBCs/100 WBC (0) /100 WBC Immature Plt Fraction (1.1-6.1) % Sodium (136-145) mEq/L Potassium (3.5-5.1) mEq/L Chloride (98-107) mEq/L Carbon Dioxide (23-29) mEq/L BUN (6-20) mg/dL Creatinine (0.60-1.20) mg/dL Est GFR ( Amer) (> 60) Est GFR (Non-Af Amer) (> 60) BUN/Creatinine Ratio (6-26) Glucose (70-105) mg/dL Calculated Osmolality (280-300) Calcium (8.6-10.3) mg/dL Total Bilirubin (0.3-1.0) mg/dL Direct Bilirubin (0.0-0.2) mg/dL Indirect Bilirubin (0.0-1.2) mg/dL AST (13-39) Units/L ALT (7-52) Units/L Alkaline Phosphatase (34-104) Units/L Ammonia (16-53) mcmol/L Troponin I (< 0.04) ng/mL Serum Total Protein (6.4-8.9) g/dL Albumin (3.5-5.7) g/dL Globulin (2.4-3.5) g/dL Albumin/Globulin Ratio (1.1-2.2) Lipase (11-82) Units/L Urine Color Yellow (Yellow) Urine Clarity Cloudy A (Clear) Urine pH 6.0 (5.0-8.0) pH Units Ur Specific Emm[place]ena 1.015 (1.010-1.025) Urine Protein Negative (Neg-Trace) mg/dL Urine Glucose (UA) Normal (Normal) mg/dL Urine Ketones Negative (Negative) mg/dL Urine Blood Negative (Negative) Urine Nitrite Negative (Negative) Urine Bilirubin Negative (Negative) Urine Urobilinogen Normal (Normal) mg/dL Ur Leukocyte Esterase Trace H (Negative) Urine Microscopic WBC 0-3 (0-3) per hpf Ur Squamous Epith Cells Many H (None-Few) per lpf Amorphous Sediment Few (Few) Hyaline Casts Few (None-Few) per lpf Ur Culture Indicated? NO. (NO) Attestation Statement - Attestation Attestation: I, Neri Zepeda MD, personally evaluated this patient and discussed their management with the resident physician. I reviewed the resident's note and agree with the documented findings, medical decision making, and plan of care. 57-year-old female from a local shelter presents with a complaint of increasing abdominal distention and discomfort and also some increasing shortness of breath. No vomiting or diarrhea. No fever. No increased cough. No chest pain. Is a chronic recurrent problem for patient. On examination patient is a well-developed obese female in no acute distress. She is alert and cooperative. No cyanosis or diaphoresis. Breath sounds are clear and equal bilaterally. Heart regular rate and rhythm. Abdomen is soft with normal bowel sounds. There is some mild distention diffusely. Labs reviewed. Chest x-ray shows densities in medial right lung base and left lower lung may be related to pneumonitis and left pleural effusion. CT of abdomen and pelvis shows: Left greater than right basilar airspace disease and effusions. Increasing ascites Findings raise the question of underlying portal hypertension. There are findings suggestive of mild colitis as well. Soft tissue attenuation medial to the right kidney in this may represent a small focus of interval hemorrhage, however enlarging lymph node is favored given that from the other lymph nodes are larger. Increasing distention of small bowel suggesting ileus. Slight development of right sided hydronephrosis. The hospitalist, Dr. Tomas, was consulted and accepted admission of the patient.
[2017-09-18] MEDS ORDERED: *HR* FentaNYL (PF) 100 MCG/2 ML VIAL IVP ONE (01:00)
[2017-09-18] MEDS ORDERED: Ondansetron 4 MG/2 ML VIAL IVP PRN (04:38)
[2017-09-18] MEDS ORDERED: Acetaminophen 325 MG TABLET PO PRN (04:38)
[2017-09-18] MEDS ORDERED: Naloxone 0.4 MG/ML INJ IVP PRN (04:38)
[2017-09-18] MEDS ORDERED: 0.9 % Sodium Chloride 1,000 ML IVC SCH ×2 (04:45→05:21)
[2017-09-18] MEDS ORDERED: D5% in Water 1,000 ML IVC PRN (04:51)
[2017-09-18] MEDS ORDERED: *HR* Dextrose 50 % in Water (Syg) 50 ML SYRINGE IVP PRN (04:51)
[2017-09-18] MEDS ORDERED: Dextrose Gel 15 GM/37.5 ML TUBE PO PRN ×2 (04:51)
--- NOTE | 2017-09-18 05:04 | Internal Med History&Physical ---
Date of Encounter: 09/18/17 Time of Encounter: 03:00 Assessment and Plan (1) Acute pyelonephritis Current visit: Yes Status: Acute Patient has a right flank pain, CVAT positive. Patient has fever and leukocytosis. Clinically most likely acute pyelonephritis. Patient also has right-sided hydronephrosis. Will place patient on Zosyn. Consult urology (2) Pneumonitis Current visit: Yes Status: Acute Patient has minimal cough, denies shortness of breath or chest pain. On exam lungs are clear. Will continue closely monitor patient. (3) Colitis Current visit: Yes Status: Acute Patient has a diarrhea. CT abdomen shows colitis. Will check GI stool panel. Currently patient on nothing by mouth and IV Zosyn (4) Liver cirrhosis Current visit: No Status: Chronic Continue outpatient follow-up Qualifiers: Hepatic cirrhosis type: unspecified hepatic cirrhosis Ascites presence: with ascites Qualified Code(s): K74.60 - Unspecified cirrhosis of liver (5) DVT prophylaxis Current visit: No Status: Acute EPCD, no anticoagulation considering urology may need procedure (6) DM2 (diabetes mellitus, type 2) Current visit: No Status: Chronic Place patient on sliding scale coverage Qualifiers: Diabetes mellitus corporate statistical financial analyst insulin use: with corporate statistical financial analyst use Diabetes mellitus complication status: with hyperglycemia Qualified Code(s): E11.65 - Type 2 diabetes mellitus with hyperglycemia; Z79.4 - inspector floor (current) use of insulin; Z79.4 - inspector floor (current) use of insulin; Z79.4 - snf (current ) use of insulin; Z79.4 - inspector floor (current) use of insulin (7) COPD (chronic obstructive pulmonary disease) Current visit: No Status: Chronic Stable, no wheezing, continue nebulizer when necessary Qualifiers: COPD type: unspecified COPD Qualified Code(s): J44.9 - Chronic obstructive pulmonary disease, unspecified Internal Medicine - H&P: HPI Chief complaint: Right flank pain Admitted From: Home Plans for Post Hospital Care: Home History of present illness: Ms. Tirado is a 57 year old female with history of diabetes, CHF, cirrhosis, COPD , presented to ER for right-sided flank pain and nausea. Patient has right- sided flank pain radiated to right lower abdominal. She has nausea and vomited , she also complained diarrhea. Patient has subjective fever. Patient has only mild nonproductive cough. In the emergency room, CT abdominal shows right- sided hydronephrosis, colitis, and ascites. Chest x-ray shows pneumonitis. Past Med Surg Social Fam HX - Past Medical History Medical history: cirrhosis, COPD, liver disease Psychiatric history: anxiety - Past Surgical History Surgical History: cholecystectomy - Social History Smoking Status: Light tobacco smoker Packs per day: 1 per day Smokeless Tobacco Status: No Alcohol use: none Drug use: none - Family History Mother History Unknown: Yes Living Status: Hx Family Cancer: Yes Internal Medicine - H&P: Meds Albuterol Sulfate [Proair Hfa] 1 puff IH Q4H PRN #1 inh 06/06/16 [Rx] Duloxetine HCl [Cymbalta] 60 mg PO DAILY 06/08/16 [History] Omeprazole [PriLOSEC] 20 mg PO DAILY 06/08/16 [History] Potassium Chloride [K-Tab ER] 20 meq PO DAILY 06/08/16 [History] Insulin LISPRO [HumaLOG] 0 units SQ TIDAC vial 06/18/16 [Rx] Ipratropium/Albuterol Neb [Duoneb] 3 ml IH [id number] #30 inhsol 06/18/16 [Rx] Insulin Glargine,Hum.rec.anlog [Basaglar Kwikpen U-100] 16 unit SQ DAILY [History] Meloxicam 15 mg PO DAILY 08/27/17 [History] Metoprolol [Lopressor] 12.5 mg PO BID 08/27/17 [History] Naproxen 500 mg PO Q12HR PRN 08/27/17 [History] Tizanidine HCl 2 mg PO TID PRN 08/27/17 [History] risperiDONE [Risperidone] 1 mg PO DAILY 08/27/17 [History] traZODone [TraZODone] 50 mg PO HS 08/27/17 [History] OxyCODONE Immed Rel [Roxicodone 5 MG] 5 mg PO Q6HR PRN 7 Days #28 tablet [Rx] Spironolactone [Aldactone] 50 mg PO BID #0 09/08/17 [Rx] Furosemide [Lasix] 40 mg PO BID 09/18/17 [History] Lactulose 10 gm PO TID 09/18/17 [History] Mometasone/Formoterol [Dulera 100 Mcg/5 Mcg Inhaler] 8.8 gm IH BID 09/18/17 [ History] 3 Allergy/AdvReac Type Severity Reaction Status Date / Time codeine AdvReac Anaphylaxis Verified 09/17/17 22:12 All Systems PM: A 10-system review of systems was performed and is negative for pertinent findings except as documented above in the HPI. - Constitutional Vitals: Temp Pulse Resp BP Pulse Ox 97.9 F 129 16 121/69 95 09/18/17 04:25 09/18/17 04:25 09/18/17 04:25 09/18/17 04:25 09/18/17 04:25 General appearance: Present: mild distress, A&O X 3, answers questions appropriately - Head Head exam: Present: atraumatic, normocephalic - Eye Eye exam: Present: PERRL, conjuntiva pink, sclera anicteric Pupils: Present: PERRL - Neck Neck exam general surgery: Present: supple, trachea midline. Absent: lymphadenopathy - Respiratory Respiratory exam: Present: CTAB. Absent: accessory muscle use, rales, rhonchi, wheezes - Cardiovascular Cardiovascular exam: Present: RRR, +S1, +S2. Absent: diastolic murmur, gallop, rubs, systolic murmur - GI/Abdominal GI/Abdominal exam: Present: normal bowel sounds, soft, tenderness (Tenderness on right flank area with CVAT positive), no peritoneal signs. Absent: distended - Extremities Exam Extremities exam: Present: warm, radial pulses palpable and symmetrical. Absent : calf tenderness, cyanotic, pedal edema - Neurological Exam Neurological exam: Present: CN II-XII intact, oriented X3, no focal deficits. Absent: pronater drift, facial droop, speech deficit - Skin Skin exam: Present: dry, intact Internal Med - H&P Results - Labs CBC & Chem 7: 09/17/17 22:19 09/17/17 22:19
[2017-09-18] MEDS: Ipratropium/Albuterol Neb 3 ML IH SCH ×5 (05:05→20:03)
[2017-09-18] MEDS ORDERED: Ipratropium/Albuterol Neb 3 ML IH PRN (05:14)
[2017-09-18] MEDS: Insulin LISPRO 300 UNITS/3 ML VIAL SQ SCH ×4 (06:00→23:32)
[2017-09-18] MEDS ORDERED: Piperacillin/Tazobactam 3.375 GM in 0.9 % Sodium Chloride Mini Bag 100 ML IVPB SCH ×2 (06:00→14:00)
--- NOTE | 2017-09-18 07:07 | Urology - Consult Note ---
Date of Encounter: 09/18/17 Time of Encounter: 07:06 - Assessment and Plan (1) Hydronephrosis Current Visit: Yes Status: Acute Assessment and plan: I reviewed the CT images. There is a 3 cm soft tissue abnormality next to the renal hilum on the medial aspect of the right kidney. I agree with the radiologist that this is most likely lymphadenopathy. There are multiple other retroperitoneal lymph nodes that are enlarged. I suspect that the enlarged lymph node is compressing the renal pelvis and proximal ureter causing mild hydronephrosis. It is unlikely this patient has pyelonephritis based on her negative urinalysis. I am most concerned about her underlying disease process including cirrhosis and /or other liver issues. This morning on exam the patient is complaining of significant abdominal fullness as her main source of pain rather than flank discomfort. I am concerned the lymphadenopathy represents progression of her liver disease. Unsure if underlying malignancy could be present but cirrhosis can also cause lymphadenopathy. I recommend treatment of her ascites and underlying liver issues prior to proceeding with any surgical intervention of this kidney such as ureteral stent. We will follow the patient while she is in the hospital including her urine cultures. Qualifiers: Hydronephrosis type: other Qualified Code(s): N13.39 - Other hydronephrosis Urology CN:HPI History of present illness: Patient currently admitted to the hospitalist service. history significant with liver cirrhosis. Underwent paracentesis earlier in the year. Presents with some flank discomfort and nausea/vomiting. Subjective fever. Acute illness. This a.m. the patient is describing more abdominal discomfort rather than flank pain. CT scan performed with report below. CT scan Soft tissue attenuation medial to the right kidney in this may represent a small focus of interval hemorrhage, however enlarging lymph node is favored given that from the other lymph nodes are larger. Increasing distention of small bowel suggesting ileus. Slight development of right sided hydronephrosis. Past Med Surg Social Fam HX - Past Medical History Medical history: cirrhosis, COPD, liver disease Psychiatric history: anxiety - Past Surgical History Surgical History: cholecystectomy - Social History Smoking Status: Light tobacco smoker Packs per day: 1 per day Smokeless Tobacco Status: No Alcohol use: none Drug use: none - Family History Mother History Unknown: Yes Living Status: Hx Family Cancer: Yes Medications and Allergies Albuterol Sulfate [Proair Hfa] 1 puff IH Q4H PRN #1 inh 06/06/16 [Rx] Duloxetine HCl [Cymbalta] 60 mg PO DAILY 06/08/16 [History] Omeprazole [PriLOSEC] 20 mg PO DAILY 06/08/16 [History] Potassium Chloride [K-Tab ER] 20 meq PO DAILY 06/08/16 [History] Insulin LISPRO [HumaLOG] 0 units SQ TIDAC vial 06/18/16 [Rx] Ipratropium/Albuterol Neb [Duoneb] 3 ml IH [id number] #30 inhsol 06/18/16 [Rx] Insulin Glargine,Hum.rec.anlog [Basaglar Kwikpen U-100] 16 unit SQ DAILY [History] Meloxicam 15 mg PO DAILY 08/27/17 [History] Metoprolol [Lopressor] 12.5 mg PO BID 08/27/17 [History] Naproxen 500 mg PO Q12HR PRN 08/27/17 [History] Tizanidine HCl 2 mg PO TID PRN 08/27/17 [History] risperiDONE [Risperidone] 1 mg PO DAILY 08/27/17 [History] traZODone [TraZODone] 50 mg PO HS 08/27/17 [History] OxyCODONE Immed Rel [Roxicodone 5 MG] 5 mg PO Q6HR PRN 7 Days #28 tablet [Rx] Spironolactone [Aldactone] 50 mg PO BID #0 09/08/17 [Rx] Furosemide [Lasix] 40 mg PO BID 09/18/17 [History] Lactulose 10 gm PO TID 09/18/17 [History] Mometasone/Formoterol [Dulera 100 Mcg/5 Mcg Inhaler] 8.8 gm IH BID 09/18/17 [ History] 3 Allergy/AdvReac Type Severity Reaction Status Date / Time codeine AdvReac Anaphylaxis Verified 09/17/17 22:12 Review of Systems - Constitutional fatigue, fever(s), malaise - EENT Nose, mouth and throat: no dizziness, no throat swelling - Cardiovascular dyspnea, no chest pain - Respiratory no cough - Gastrointestinal abdominal pain, nausea, vomiting - Genitourinary Genitourinary: no dysuria - Musculoskeletal back pain - Integumentary no erythema - Neurological no confusion - Psychiatric anxiety, depression - Hematologic/Lymphatic easy bruising, no easy bleeding Exam Initial Vital Signs Temp Pulse Resp BP Pulse Ox 97.8 F 118 18 144/100 94 09/17/17 22:13 09/17/17 22:13 09/17/17 22:13 09/17/17 22:13 09/17/17 22:13 - General physical appearance Present: no distress, chronically ill - Eyes Present: PERRL, conjunctiva is clear - ENT Present: normal nares - Neck Present: no masses - Respiratory Present: normal respiratory effort - Cardiovascular Cardiovascular exam IM: RRR - Abdomen Abdomen: Present: soft, tender, distended, suprapubic tenderness - Integumentary Present: no rash - Neurologic Present: normal coordination. Absent: disoriented, confused - Additional Findings Bruising on arms Urology Results - Labs 09/17/17 22:19 09/17/17 22:19 Abnormal lab results WBC 11.6 K/mcL (4.3-11.1) H 09/17/17 22:19 RBC 3.35 M/mcL (3.82-4.97) L 09/17/17 22:19 Hgb 10.4 g/dL (11.5-15.4) L 09/17/17 22:19 Hct 31.9 % (35.3-44.9) L 09/17/17 22:19 RDW 17.5 % (11.5-14.5) H 09/17/17 22:19 Plt Count 93 K/mcL (140-400) L 09/17/17 22:19 Monocytes # 1.4 K/mcL (0.0-1.3) H 09/17/17 22:19 Nucleated RBCs/100 WBC 0.3 /100 WBC (0) H 09/17/17 22:19 Sodium 133 mEq/L (136-145) L 09/17/17 22:19 Creatinine 1.30 mg/dL (0.60-1.20) H 09/17/17 22:19 Est GFR ( Amer) 52 (> 60) L 09/17/17 22:19 Est GFR (Non-Af Amer) 43 (> 60) L 09/17/17 22:19 Calculated Osmolality 277 (280-300) L 09/17/17 22:19 Total Bilirubin 4.6 mg/dL (0.3-1.0) H 09/17/17 22:19 Direct Bilirubin 2.1 mg/dL (0.0-0.2) H 09/17/17 22:19 Indirect Bilirubin 2.5 mg/dL (0.0-1.2) H 09/17/17 22:19 AST 52 Units/L (13-39) H 09/17/17 22:19 Alkaline Phosphatase 210 Units/L (34-104) H 09/17/17 22:19 Albumin 3.2 g/dL (3.5-5.7) L 09/17/17 22:19 Globulin 5.1 g/dL (2.4-3.5) H 09/17/17 22:19 Albumin/Globulin Ratio 0.6 (1.1-2.2) L 09/17/17 22:19 Urine Clarity Cloudy (Clear) A 09/17/17 23:08 Ur Leukocyte Esterase Trace (Negative) H 09/17/17 23:08 Ur Squamous Epith Cells Many per lpf (None-Few) H 09/17/17 23:08 All other labs normal. Consult Discharge Plan - Plan Referrals: NONE,PCP [Primary Care Provider] -
[2017-09-18] MEDS: OXYCODONE Oral CONC 10 MG/0.5 ML ORAL.SYG SL PRN (12:29)
--- NOTE | 2017-09-18 16:11 | Procedure Note ---
<Kenny Hussein - Last Filed: 09/18/17 16:02> Date of procedure: 09/18/17 Pre-op diagnosis: Ascites Post-op diagnosis: same Procedure: Diagnostic and therapeutic paracentesis Date: 09/18/17 Time: 1500 Indication: To qualitatively evaluate ascitic fluid and provide relief for patient Resident: Dr. Hussein Attending: Dr. Dorsey A time-out was completed verifying correct patient, procedure, site, positioning , and special equipment if applicable. After patient's skin was prepped with Betadine. The patients left side was prepped and draped in a sterile manner after the appropriate infiltration level was confirmed by ultrasound. 1% lidocaine was used anesthetize the surrounding skin. A finder needle was then used to locate fluid and clear yellow fluid was obtained. A scalpel used to make the incision. The thoracentesis catheter was then threaded without difficulty. The patient had 1000 ml of clear yellow fluid removed. Dr. Dorsey was present for the entire procedure. A post-procedure chest x-ray was ordered and the fluid will be sent for several studies. Estimated Blood Loss: Minimal The patient tolerated the procedure well and there were no complications. Anesthesia: local Surgeon: Kenny Hussein Was there an hotel administrative assistant present: Yes [place] Floor Desk Clerk: Jean Carlos Dorsey Estimated blood loss (cc): 1 IV fluids (cc): 0 Specimen: 1 L ascitic fluid Condition: stable Disposition: floor <Jean Carlos Dorsey - Last Filed: 09/18/17 20:21> Procedure: I agree with the documentation about by Dr. Hussein with the exception that a chest x-ray was not ordered postprocedure as there was no indication to obtain a chest x-ray. Patient tolerated procedure well and reported subjective relief from having ascitic fluid drained.
[2017-09-18 16:53] LABS: Albumin 2.8 g/dL (3.5-5.7); Albumin/Globulin Ratio 0.6 (1.1-2.2); Bilirubin,Total 5.4 mg/dL (0.3-1.0); Globulin 4.6 g/dL (2.4-3.5); Potassium 4.4 mEq/L (3.5-5.1); Total Protein 7.4 g/dL (6.4-8.9)
--- NOTE | 2017-09-18 17:29 | Internal Med Progress Note ---
Date of Encounter: 09/18/17 Time of Encounter: 10:00 - Assessment and plan (1) LONG (acute kidney injury) Current Visit: Yes Status: Acute Assessment and plan: Likely due to dehydration, n/v, UTI. Continue gentle IVF hydration and avoid nephrotoxins. (2) Acute pyelonephritis Current Visit: Yes Status: Ruled-out Assessment and plan: Urine is not indicative of UTI. Pt reports RUQ and right rib pain as well as suprapubic pain/pressure today. Unlikely that pt has pyelonephritis based on UA results. Will stop antibiotics for UTI. (3) Colitis Current Visit: Yes Status: Acute Assessment and plan: Per CT. Pt reports diarrhea, however, since admission, she has had no BM. Pt also has ileus. Stool study ordered and pending. (4) Hydronephrosis Current Visit: Yes Status: Acute Assessment and plan: Per urology note: There is a 3 cm soft tissue abnormality next to the renal hilum on the medial aspect of the right kidney. This is most likely lymphadenopathy, there are multiple other retroperitoneal lymph nodes that are enlarged. Allergy suspects that the enlarged lymph node is compressing the renal pelvis and proximal ureter causing mild hydronephrosis. Urology is following at this time and we will continue to follow. Urine cultures are pending. Qualifiers: Hydronephrosis type: other Qualified Code(s): N13.39 - Other hydronephrosis (5) Pneumonitis Current Visit: Yes Status: Acute Assessment and plan: The patient denies cough, fever, chills. Patient has mild leukocytosis, no fever. Lungs are clear and diminished. Continue to monitor. Continue Levaquin 750 mg IV daily. Chest X-Ray 09/17/17 22:27 IMPRESSION: 1. Findings medial right lung base and left lower lung may be related to pneumonitis. 2. Left pleural effusion. D/ / Gopal Rodriguez / Gopal Rodriguez Interpreting Provider: Gopal Rodriguez (6) COPD (chronic obstructive pulmonary disease) Current Visit: Yes Status: Chronic Assessment and plan: No acute exacerbation. Patient lungs are clear and diminished throughout. She denies cough, chills, fever. Patient is requiring supplemental oxygen,. Continue telemetry Duo nebs as needed for shortness of breath or wheezing Qualifiers: COPD type: unspecified COPD Qualified Code(s): J44.9 - Chronic obstructive pulmonary disease, unspecified (7) DM2 (diabetes mellitus, type 2) Current Visit: No Status: Chronic Qualifiers: Diabetes mellitus manager terminal insulin use: with half-way use Diabetes mellitus complication status: with hyperglycemia Qualified Code(s): E11.65 - Type 2 diabetes mellitus with hyperglycemia; Z79.4 - MCC (current) use of insulin; Z79.4 - lobsterman (current) use of insulin; Z79.4 - lobsterman (current ) use of insulin; Z79.4 - lobsterman (current) use of insulin (8) Liver cirrhosis Current Visit: Yes Status: Chronic Assessment and plan: Patient denies stented alcohol history, she denies knowledge of PETERSEN. Patient had paracentesis today by Dr. Hussein. He reports removing 1 L clear yellow fluid from abdomen. Fluid were sent for studies. MRI abdomen ordered and pending Abdomen/Pelvis CT 09/17/17 22:26 IMPRESSION: Left greater than right basilar airspace disease and effusions. Increasing ascites Findings raise the question of underlying portal hypertension. There are findings suggestive of mild colitis as well. Soft tissue attenuation medial to the right kidney in this may represent a small focus of interval hemorrhage, however enlarging lymph node is favored given that from the other lymph nodes are larger. Increasing distention of small bowel suggesting ileus. Slight development of right sided hydronephrosis. Continued follow-up recommended D/ / Ralph Johnson / Ralph Johnson Interpreting Provider: Ralph Johnson Qualifiers: Hepatic cirrhosis type: unspecified hepatic cirrhosis Ascites presence: with ascites Qualified Code(s): K74.60 - Unspecified cirrhosis of liver (9) DVT prophylaxis Current Visit: Yes Status: Acute Assessment and plan: SCDs ordered. - Time Spent With Patient less than 15 minutes - Subjective Interval history: Patient was seen and assessed the bedside at 10 AM. Patient appears to be ill, in discomfort. She reports abdominal pain and distention 1 month. She says that she presented to the emergency department several times and has been discharged. She reports nausea, 1 episode of vomiting yesterday. Her abdomen is rounded and firm, reports suprapubic abdominal pain. She denies any headache or chest pain, no shortness of breath. No nausea, vomiting, diarrhea. She does report constipation, patient is aware that she has an ileus. Patient denies knowledge of PETERSEN or history of ETOH. I discussed the case with attending, will pass pt on to teaching service tomorrow. - Constitutional Vitals: Temp Pulse Resp BP Pulse Ox 98.2 F 117 16 106/71 95 09/18/17 16:00 09/18/17 16:00 09/18/17 16:00 09/18/17 16:00 09/18/17 16:00 General appearance: Present: cooperative, mild distress, A&O X 3, pleasant, answers questions appropriately - Head Head exam: Present: atraumatic, normal inspection, normocephalic - Eye Eye exam: Present: normal appearance, conjuntiva pink, sclera anicteric - Neck Neck exam general surgery: Present: supple, trachea midline. Absent: lymphadenopathy, tenderness - Respiratory Respiratory exam: Present: decreased breath sounds, CTAB. Absent: accessory muscle use, rales, respiratory distress, rhonchi, wheezes - Cardiovascular Cardiovascular exam: Present: RRR, +S1, +S2. Absent: diastolic murmur, gallop, rubs, systolic murmur - GI/Abdominal GI/Abdominal exam: Present: distended, firm, normal bowel sounds, soft. Absent : hepatomegaly, tenderness - Extremities Exam Extremities exam: Present: pedal edema, warm, radial pulses palpable and symmetrical. Absent: calf tenderness, cyanotic - Neurological Exam Neurological exam: Present: alert, oriented X3, no focal deficits. Absent: facial droop, speech deficit - Skin Skin exam: Present: dry, intact, normal color, warm. Absent: rash Internal Medicine: Result - Labs CBC & Chem 7: 09/17/17 22:19 09/18/17 16:15 Labs: BMP 09/18/17 16:15 Sodium 133 L Potassium 4.4 D Chloride 105 Carbon Dioxide 22 L BUN 19 Creatinine 1.35 H Glucose 98 Calcium 9.0 Liver Function 09/18/17 Range/Units 16:15 Total Bilirubin 5.4 H (0.3-1.0) mg/dL AST 52 H (13-39) Units/L ALT 16 (7-52) Units/L Alkaline Phosphatase 183 H (34-104) Units/L Albumin 2.8 L (3.5-5.7) g/dL Consult Discharge Plan - Plan Referrals: NONE,PCP [Primary Care Provider] -
[2017-09-18] MEDS ORDERED: Levofloxacin 750 MG/150 ML 750 MG/150 ML BAG IVPB SCH (18:00)
[2017-09-18 18:58] LABS: RBC,Peritoneal Fluid < 0.002 M/mcL
[2017-09-18 19:08] LABS: Amylase,Peritoneal Fluid < 10 Units/L (No Ref Range); Glucose,Peritoneal Fluid 102 mg/dL (No Ref Range); LDH,Peritoneal Fluid 35 Units/L (No Ref Range); Total Protein,Peritoneal Fluid < 3.0 g/dL (No Ref Range)
[2017-09-18 19:37] LABS: Appearance of Peritoneal Fl CLEAR (Clear)
[2017-09-18] MEDS: *HR* Metoprolol 5 MG/5 ML VIAL IVP PRN (23:42)
[2017-09-19] MEDS: Ipratropium/Albuterol Neb 3 ML IH SCH ×7 (00:10→23:47)
[2017-09-19 02:05] LABS: Hepatitis A Antibody IgM Nonreactive (Nonreactive)
[2017-09-19 02:13] LABS: Hepatitis B Surface Antigen Reactive (Nonreactive)
[2017-09-19 02:14] LABS: Hepatitis B Core IgM Reactive (Nonreactive); Hepatitis C Virus Antibody Reactive (Nonreactive)
[2017-09-19] MEDS ORDERED: Levofloxacin 500 MG/100 ML 500 MG/100 ML BAG IVPB SCH (05:00)
[2017-09-19] MEDS: Insulin LISPRO 300 UNITS/3 ML VIAL SQ SCH ×3 (05:33→17:14)
[2017-09-19 07:29] LABS: Basophils # 0.1 K/mcL (0.0-0.2); Basophils % 0.7 %; Eosinophils # 0.1 K/mcL (0.0-0.6); Eosinophils % 1.5 %; Hematocrit 27.8 % (35.3-44.9); Hemoglobin 8.9 g/dL (11.5-15.4); Immature Granulocytes % 1.3 % (0-4); Immature Platelets 6.5 % (1.1-6.1); Lymphocytes # 1.3 K/mcL (0.6-4.6); Lymphocytes % 15.8 %; Mean Corpuscular Hemoglobin 31.3 pg (28.0-33.3); Mean Corpuscular Volume 97.9 fL (83.0-100.0); Mean Platelet Volume 11.2 fL (9.4-12.4); Monocytes % 12.3 %; Neutrophils # 5.6 K/mcL (1.6-8.9); Red Blood Count 2.84 M/mcL (3.82-4.97); Red Cell Distribution Width 18.2 % (11.5-14.5); Segmented Neutrophils % 68.4 %
--- NOTE | 2017-09-19 07:32 | Urology Progress Note ---
Date of Encounter: 09/19/17 Time of Encounter: 07:29 - Assessment and Plan (1) Hydronephrosis Current Visit: Yes Status: Acute Assessment and plan: still with mild right sided pain. CR up to 1.35 (from 1.3). no need for urgent stent but it might be necessary at some point Qualifiers: Hydronephrosis type: other Qualified Code(s): N13.39 - Other hydronephrosis Progress Note Subjective: still having pain Narrative: pt feels better after paracentesis. still/now having some right sided pain Objective Initial Vital Signs Temp Pulse Resp BP Pulse Ox 97.8 F 118 18 144/100 94 09/17/17 22:13 09/17/17 22:13 09/17/17 22:13 09/17/17 22:13 09/17/17 22:13 - General physical appearance Present: no distress - Abdomen Present: soft, distended - Labs 09/17/17 22:19 09/18/17 16:15 Diabetes panel 09/18/17 Range/Units 16:15 Sodium 133 L (136-145) mEq/L Potassium 4.4 D (3.5-5.1) mEq/L Chloride 105 (98-107) mEq/L Carbon Dioxide 22 L (23-29) mEq/L BUN 19 (6-20) mg/dL Creatinine 1.35 H (0.60-1.20) mg/dL Glucose 98 (70-105) mg/dL Calcium 9.0 (8.6-10.3) mg/dL AST 52 H (13-39) Units/L ALT 16 (7-52) Units/L Alkaline Phosphatase 183 H (34-104) Units/L Albumin 2.8 L (3.5-5.7) g/dL Calcium panel 09/18/17 Range/Units 16:15 Calcium 9.0 (8.6-10.3) mg/dL Albumin 2.8 L (3.5-5.7) g/dL Pituitary panel 09/18/17 Range/Units 16:15 Sodium 133 L (136-145) mEq/L Potassium 4.4 D (3.5-5.1) mEq/L Chloride 105 (98-107) mEq/L Carbon Dioxide 22 L (23-29) mEq/L BUN 19 (6-20) mg/dL Creatinine 1.35 H (0.60-1.20) mg/dL Glucose 98 (70-105) mg/dL Calcium 9.0 (8.6-10.3) mg/dL Adrenal panel 09/18/17 Range/Units 16:15 Sodium 133 L (136-145) mEq/L Potassium 4.4 D (3.5-5.1) mEq/L Chloride 105 (98-107) mEq/L Carbon Dioxide 22 L (23-29) mEq/L BUN 19 (6-20) mg/dL Creatinine 1.35 H (0.60-1.20) mg/dL Glucose 98 (70-105) mg/dL Calcium 9.0 (8.6-10.3) mg/dL Total Bilirubin 5.4 H (0.3-1.0) mg/dL AST 52 H (13-39) Units/L ALT 16 (7-52) Units/L Alkaline Phosphatase 183 H (34-104) Units/L Albumin 2.8 L (3.5-5.7) g/dL Consult Discharge Plan - Plan Referrals: NONE,PCP [Primary Care Provider] -
[2017-09-19 07:41] LABS: Platelet Count 80 K/mcL (140-400)
[2017-09-19 07:47] LABS: BUN/Creatinine Ratio 17 (6-26); Blood Urea Nitrogen 19 mg/dL (6-20); Calcium 8.7 mg/dL (8.6-10.3); Carbon Dioxide 21 mEq/L (23-29); Chloride 105 mEq/L (98-107); Glucose 110 mg/dL (70-105); Magnesium 1.8 mg/dL (1.6-2.6); Osmolality,Calculated 279 (280-300); Sodium 133 mEq/L (136-145); eGFR For African Americans > 60 (> 60); eGFR For Non-African Americans 50 (> 60)
--- NOTE | 2017-09-19 08:52 | Internal Med Progress Note ---
<Kenny Hussein - Last Filed: 09/19/17 15:40> Date of Encounter: 09/19/17 Time of Encounter: 08:30 - Assessment and plan (1) Cirrhosis of liver with ascites Current Visit: Yes Status: Acute Assessment and plan: Patient has history of liver cirrhosis with ascites Labs in the hospital 2 weeks ago, was seen by GI, and underwent therapeutic paracentesis at that time Patient is hep B and C positive Patient had paracentesis of 1 L on 09/18/17 and of 3.9 L on 09/19/17 Due to limited size of volume removed, no additional albumin required Analysis of fluid negative for SBP, likely account of patient's cirrhosis Patient will need close follow-up with GI following hospitalization for management of her cirrhosis We will continue to monitor patient following paracentesis today Qualifiers: Hepatic cirrhosis type: unspecified hepatic cirrhosis Qualified Code(s): K74.60 - Unspecified cirrhosis of liver (2) Lymphadenopathy Current Visit: Yes Status: Acute Assessment and plan: Patient found to have increased LAD on abdominal CT Likely contributor to patient hydronephrosis Unsure if lymphadenopathy represents malignant first reactive source Oncology consulted and recommendations appreciated (3) Pneumonia Current Visit: Yes Status: Acute Assessment and plan: Chest x-ray shows left pleural effusion and consolidative density in right medial lung base and left lower lung Could be related to pneumonitis Patient been treated for pneumonia and improving currently Effusion likely due to liver cirrhosis Continue Levaquin Continue breathing treatments Continue supplemental oxygen as needed, wean as tolerated Qualifiers: Pneumonia type: due to unspecified organism Laterality: unspecified laterality Lung location: unspecified part of lung Qualified Code(s): J18.9 - Pneumonia, unspecified organism (4) Pancytopenia Current Visit: Yes Status: Acute Assessment and plan: Patient pancytopenia likely account of her liver disease Slight elevation White blood cell count could be a result of infection/ inflammation Slight drop in hemoglobin seen today We will continue to monitor blood counts daily with CBC (5) Hydronephrosis Current Visit: Yes Status: Acute Assessment and plan: Patient found to have hydronephrosis on imaging Slight [place] I presentation Seen by urology, feels hydronephrosis due to abdominal lymphadenopathy and ascites No sent at this time, but might need stent in the future Renal function improving today We will continue to monitor with daily labs Avoid nephrotoxic agents Qualifiers: Hydronephrosis type: other Qualified Code(s): N13.39 - Other hydronephrosis (6) COPD (chronic obstructive pulmonary disease) Current Visit: Yes Status: Chronic Assessment and plan: Patient has history of COPD We will continue home breathing treatments We will continue albuterol Continue supplemental oxygen as needed, wean as tolerated Qualifiers: COPD type: unspecified COPD Qualified Code(s): J44.9 - Chronic obstructive pulmonary disease, unspecified (7) Colitis Current Visit: Yes Status: Suspected Assessment and plan: Suggestion of mild colitis seen on CT scan Possible small bowel ileus suggested by increasing distention seen She denies having any diarrhea at this time A stool sample has not been able to be obtained, due to no bowel movements Continue patient Levaquin for now for respiratory concerns Will cancel stool studies Due to patient lack of bowel movement/flatus, will keep patient nothing by mouth with ice chips for now We will advance if tolerated and patient bowels started working (8) DM2 (diabetes mellitus, type 2) Current Visit: No Status: Chronic Assessment and plan: Currently on Q6 insulin Low-dose sliding scale Will continue while patient NPO Qualifiers: Diabetes mellitus manager terminal insulin use: with manager terminal use Diabetes mellitus complication status: with hyperglycemia Qualified Code(s): E11.65 - Type 2 diabetes mellitus with hyperglycemia; Z79.4 - USP (current) use of insulin; Z79.4 - USP (current) use of insulin; Z79.4 - equipment operator intermodal yard (current ) use of insulin; Z79.4 - USP (current) use of insulin (9) DVT prophylaxis Current Visit: Yes Status: Acute Assessment and plan: SCDs - Subjective Interval history: Patient doing slightly better today than yesterday. She states the paracentesis of 1 L made her feel somewhat better. She does report having continued pain in her lower back. She denies having bowel movements or flatus. She denies nausea/vomiting, denies fever/chills, denies abdominal pain or tenderness. - Constitutional Vitals: Temp Pulse Resp BP Pulse Ox 98.7 F 95 18 116/61 94 09/19/17 07:19 09/19/17 07:19 09/19/17 07:57 09/19/17 07:19 09/19/17 08:20 General appearance: Present: cooperative, A&O X 3, pleasant, no acute distress, answers questions appropriately Exam: General: Cooperative, pleasant, no acute distress, alert and oriented 3, answers questions appropriately HEENT: Normocephalic, atraumatic, neck supple, trachea midline, Conjunctiva pink , sclera anicteric, oral mucosa moist Respiratory: No accessory muscle usage, mild Rales in left lower lung Cardiovascular: Regular rate and rhythm, S1 and S2 present, no murmurs/rubs/ gallops/clicks appreciated GI/abdominal: Distended, nontender, soft, normal bowel sounds, no peritoneal signs, caput medusae present, fluid wave present Extremities: No calf tenderness, noncyanotic, 2+ pedal edema appreciated, warm, lower extremity pulses palpable and symmetrical Neurological: Alert and oriented 3, no facial droop, no focal deficits Skin: Dry, intact, normal color Internal Medicine: Result - Labs CBC & Chem 7: 09/19/17 06:06 09/19/17 06:06 Labs: Short CBC 09/19/17 Range/Units 06:06 WBC 8.2 (4.3-11.1) K/mcL Hgb 8.9 L D (11.5-15.4) g/dL Hct 27.8 L (35.3-44.9) % Plt Count 80 L (140-400) K/mcL Neutrophils # 5.6 (1.6-8.9) K/mcL BMP 09/18/17 09/19/17 16:15 06:06 Sodium 133 L 133 L Potassium 4.4 D 4.0 Chloride 105 105 Carbon Dioxide 22 L 21 L BUN 19 19 Creatinine 1.35 H 1.13 Glucose 98 110 H Calcium 9.0 8.7 Liver Function 09/18/17 Range/Units 16:15 Total Bilirubin 5.4 H (0.3-1.0) mg/dL AST 52 H (13-39) Units/L ALT 16 (7-52) Units/L Alkaline Phosphatase 183 H (34-104) Units/L Albumin 2.8 L (3.5-5.7) g/dL Consult Discharge Plan - Plan Referrals: NONE,PCP [Primary Care Provider] - <Ralph Brenner - Last Filed: 09/19/17 16:28> Date of Encounter: 09/19/17 - Constitutional Vitals: Temp Pulse Resp BP Pulse Ox 98.5 F 100 18 133/76 92 09/19/17 15:34 09/19/17 15:34 09/19/17 15:34 09/19/17 15:34 09/19/17 15:34 Internal Medicine: Result - Labs CBC & Chem 7: 09/19/17 06:06 09/19/17 06:06 Labs: Short CBC 09/19/17 Range/Units 06:06 WBC 8.2 (4.3-11.1) K/mcL Hgb 8.9 L D (11.5-15.4) g/dL Hct 27.8 L (35.3-44.9) % Plt Count 80 L (140-400) K/mcL Neutrophils # 5.6 (1.6-8.9) K/mcL BMP 09/18/17 09/19/17 16:15 06:06 Sodium 133 L 133 L Potassium 4.4 D 4.0 Chloride 105 105 Carbon Dioxide 22 L 21 L BUN 19 19 Creatinine 1.35 H 1.13 Glucose 98 110 H Calcium 9.0 8.7 Liver Function 09/18/17 Range/Units 16:15 Total Bilirubin 5.4 H (0.3-1.0) mg/dL AST 52 H (13-39) Units/L ALT 16 (7-52) Units/L Alkaline Phosphatase 183 H (34-104) Units/L Albumin 2.8 L (3.5-5.7) g/dL - Attending Attestation I performed an independent interview and exam of this patient. I evaluated this patient along with Dr. Hussein, internal medicine resident. I agree with his findings, assessment, and plan, and my input is reflected in his note. Since initial paracentesis is consistent with transudate, no evidence of SBP. She is nontoxic appearing. She will have a follow-up paracentesis today as she clinically has more fluid to be removed. Allergy input is appreciated. Patient has hydronephrosis due to lymphadenopathy. His may be due to inflammation or infection. I also be able malignancy. Allergy has been consulted and we will await their recommendations. She continues on Levaquin for pneumonia. She otherwise appears stable. We will await further fluid removal. All else as outlined above.
[2017-09-19] MEDS: OXYCODONE Oral CONC 10 MG/0.5 ML ORAL.SYG SL PRN (11:53)
--- NOTE | 2017-09-19 14:44 | Electrocardiograph Report ---
[address] [address] Test Date: 2017-09-17 Pat Name: Daisy Tirado Department: 102 Room: 3B22 Gender: F Able Seaman: Tmr : [id number] Requested By: Myrtle Lafleur Order Number: [id number] Reading MD: Veto Chaves Measurements Intervals [place] Rate: 116 P: 31 [place]: 108 QRS: 34 QRSD: 91 T: 20 QT: 382 QTc: 451 Interpretive Statements SINUS TACHYCARDIA WITH SHORT [place] INTERVAL BASELINE ARTIFACT LEFT ATRIAL ENLARGEMENT Electronically Signed On 09-19-2017 14:42:40 EDT by Veto Chaves
--- NOTE | 2017-09-19 15:26 | IR Procedure Note ---
Date of procedure: 09/19/17 Consent Obtained: Verbal consent Timeout: Correct patient and procedure verified, Correct site verified, Time out performed, Skin prep completed Indications: ascites Procedure Performed: paracentesis Was there an assistant tennis coach present: No Site/Technique: left abdomen Results/Findings: ascites Estimated blood loss (cc): 0 Complications: None; Tolerated procedure well Post Procedure Treatment Plan: monitor Specimen: fluid
[2017-09-19] MEDS ORDERED: OXYCODONE Oral CONC 10 MG/0.5 ML ORAL.SYG SL PRN (15:27)
[2017-09-19] MEDS: *HR* OxyCODONE ER (12 HR) 10 MG TABLET PO SCH (17:15)
[2017-09-19] MEDS: Levofloxacin 750 MG/150 ML 750 MG/150 ML BAG IVPB SCH (17:16)
--- NOTE | 2017-09-19 17:52 | Oncology Inp Consult Note ---
<Tita Coronado L - Last Filed: 09/21/17 08:41> Date of Encounter: 09/19/17 Time of Encounter: 16:30 Assessment and Plan (1) Liver cirrhosis Status: Chronic Assessment and plan: Chronic anemia/thrombocytopenia secondary to cirrhosis of the liver, Hepatitis B and C positive. S/P paracentesis of 1 L on 09/18/17 and of 3.9 L on 09/19/17 Total bilirubin elevated at 5.4. Ammonia normal. ALT normal, AST trending down. She is on aldactone and lactulose. May consider GI consultation if needed per primary team Qualifiers: Hepatic cirrhosis type: unspecified hepatic cirrhosis Ascites presence: with ascites Qualified Code(s): K74.60 - Unspecified cirrhosis of liver (2) Hydronephrosis Status: Acute Assessment and plan: Urology consult reviewed, no need for urgent stent at this time, continue to monitor renal function. Lymphadenopathy likely contributing. Qualifiers: Hydronephrosis type: other Qualified Code(s): N13.39 - Other hydronephrosis (3) Lymphadenopathy Status: Acute Assessment and plan: CT abdomen/pelvis shows right-sided hydronephrosis, colitis, ascites and numerous retroperitoneal lymph nodes, an ovoid soft tissue density medial to the right kidney is noted which measures approximately 3.7 x 2.1 cm and numerous mesenteric nodes. CT imaging reviewed by Dr. Martinez, concerning for lymphoma. Discussed with patient at bedside today. She reports subjective fevers/chills, denies other B symptoms. Her LDH is normal. Plan for biopsy of retroperitoneal lymph node tomorrow. If pathology report results during her stay we will discuss results with her at that time. She will have follow up with oncology arranged as outpatient. Please refer to Dr. Martinez's attestation below for additional details. - Data of Consult Patient: new to practice Consult date: 09/19/17 Requesting Physician: Magnolia Betts CNP Primary Care Provider: PCP NONE - Consult Narrative Reason for consult: Lymphadenopathy History of present illness: Ms. Tirado is a 57 year old female with past medical history significant for diabetes, CHF, cirrhosis, COPD, Hepatitis B and C, presented to the ER on 2017 with complaint of right-sided flank pain, nausea, vomiting and subjective fever. In the emergency room, CT abdomen/pelvis shows right-sided hydronephrosis , colitis, ascites and numerous retroperitoneal lymph nodes, an ovoid soft tissue density medial to the right kidney is noted which measures approximately 3.7 x 2.1 cm and numerous mesenteric nodes. This appears to be new from CT around August 27 which had noted mildly enlarged portacaval nodes. Ms. Tirado reports no changes in appetite or weight loss. She does report weight gain and increased abdominal girth likely secondary to her ascites. She does report subjective fever/chills prior to her admission. She denies night sweats. Past Med Surg Social Fam HX - Past Medical History Medical history: cirrhosis, COPD, liver disease Psychiatric history: anxiety - Past Surgical History Surgical History: cholecystectomy - Social History Smoking Status: Light tobacco smoker Packs per day: 1 per day Smokeless Tobacco Status: No Alcohol use: none Drug use: none - Family History Mother History Unknown: Yes Living Status: Hx Family Cancer: Yes Medications and Allergies Albuterol Sulfate [Proair Hfa] 1 puff IH Q4H PRN #1 inh 06/06/16 [Rx] Duloxetine HCl [Cymbalta] 60 mg PO DAILY 06/08/16 [History] Omeprazole [PriLOSEC] 20 mg PO DAILY 06/08/16 [History] Potassium Chloride [K-Tab ER] 20 meq PO DAILY 06/08/16 [History] Insulin LISPRO [HumaLOG] 0 units SQ TIDAC vial 06/18/16 [Rx] Ipratropium/Albuterol Neb [Duoneb] 3 ml IH [id number] #30 inhsol 06/18/16 [Rx] Insulin Glargine,Hum.rec.anlog [Basaglar Kwikpen U-100] 16 unit SQ DAILY [History] Meloxicam 15 mg PO DAILY 08/27/17 [History] Naproxen 500 mg PO Q12HR PRN 08/27/17 [History] Tizanidine HCl 2 mg PO TID PRN 08/27/17 [History] risperiDONE [Risperidone] 1 mg PO DAILY 08/27/17 [History] traZODone [TraZODone] 50 mg PO HS 08/27/17 [History] Spironolactone [Aldactone] 50 mg PO BID #0 09/08/17 [Rx] Furosemide [Lasix] 40 mg PO TID 09/18/17 [History] Lactulose 20 gm PO QID 09/18/17 [History] Duloxetine HCl [Cymbalta] 60 mg PO QAM 09/19/17 [History] 3 Allergy/AdvReac Type Severity Reaction Status Date / Time codeine AdvReac Anaphylaxis Verified 09/17/17 22:12 Constitutional: Present: chills, fatigue, fever(s), weakness, weight gain. Absent: anorexia, frequent falls, headache(s), night sweats, weight loss Eyes: Absent: change in vision Nose, mouth and throat: Absent: mouth pain Cardiovascular: Absent: chest pain, irregular heart rhythm, palpitations Respiratory: Present: cough, dyspnea Gastrointestinal: Present: as per HPI, abdominal pain, diarrhea (since resolved) , nausea. Absent: hematemesis, hematochezia, melena, vomiting Genitourinary: Absent: dysuria, hematuria Musculoskeletal: Absent: muscle cramps, muscle weakness Integumentary: Absent: wounds Neurological: Absent: focal weakness, frequent falls Psychiatric: Absent: change in appetite Hematologic/Lymphatic: Present: as per HPI Oncology - Exam - Constitutional Vitals: Temp Pulse Resp BP Pulse Ox 98.5 F 100 18 133/76 82 09/19/17 15:34 09/19/17 15:34 09/19/17 15:46 09/19/17 15:34 09/19/17 15:46 General appearance: cooperative, no acute distress, no febrile - Head Head exam: Present: atraumatic - ENT ENT exam: Present: mucous membranes moist - Respiratory Respiratory exam: Present: CTAB. Absent: respiratory distress - Cardiovascular Cardiovascular exam: Present: RRR, tachycardia - GI/Abdominal GI/Abdominal exam: Present: distended, normal bowel sounds, soft, tenderness. Absent: guarding, rebound - Extremities Exam Extremities exam: Present: pedal edema. Absent: calf tenderness Additional comments: 2+ edema to BLE with related chronic skin changes - Neurological Exam Neurological exam: Present: alert, oriented X3, no focal deficits, strengths equal and symetr throughout - Psychiatric Psychiatric exam: Present: normal affect, normal mood Additional comments: inattentive at times - Skin Skin exam: Present: dry, normal color, warm Oncology - Results Labs: Short CBC 09/19/17 Range/Units 06:06 WBC 8.2 (4.3-11.1) K/mcL Hgb 8.9 L D (11.5-15.4) g/dL Hct 27.8 L (35.3-44.9) % Plt Count 80 L (140-400) K/mcL Neutrophils # 5.6 (1.6-8.9) K/mcL BMP 09/19/17 06:06 Sodium 133 L Potassium 4.0 Chloride 105 Carbon Dioxide 21 L BUN 19 Creatinine 1.13 Glucose 110 H Calcium 8.7 Consult Discharge Plan - Plan Referrals: NONE,PCP [Primary Care Provider] - <Finn Martinez - Last Filed: 09/21/17 12:42> Date of Encounter: 09/19/17 - Data of Consult Requesting Physician: Magnolia Betts CNP Primary Care Provider: PCP NONE - Consult Narrative History of present illness: Ms. Tirado is a 57 year old female Oncology - Exam - Constitutional Vitals: Temp Pulse Resp BP Pulse Ox 98.1 F 125 16 134/77 96 09/21/17 06:47 09/21/17 06:47 09/21/17 11:03 09/21/17 06:47 09/21/17 11:03 Oncology - Results Labs: Short CBC 09/21/17 Range/Units 04:59 WBC 7.9 (4.3-11.1) K/mcL Hgb 8.9 L (11.5-15.4) g/dL Hct 27.2 L (35.3-44.9) % Plt Count 81 L (140-400) K/mcL BMP 09/21/17 04:59 Sodium 127 L Potassium 3.7 Chloride 99 Carbon Dioxide 23 BUN 16 Creatinine 0.97 Glucose 98 Calcium 8.6 Liver Function 09/21/17 Range/Units 04:59 Total Bilirubin 3.1 H (0.3-1.0) mg/dL Direct Bilirubin 1.9 H (0.0-0.2) mg/dL AST 57 H (13-39) Units/L ALT 14 (7-52) Units/L Alkaline Phosphatase 165 H (34-104) Units/L Albumin 2.3 L (3.5-5.7) g/dL - Attending Attestation seen and examined patient and agree with assessment and plan. Has new and progressive lymphadenopaty. I agree with the suspicion of a neoplastic process. Proceed with bx. Patient has significant sequelae of cirrhosis. If she indeed has a neoplastic/lymphoproliferative process, management will be challenging.
[2017-09-20] MEDS: Insulin LISPRO 300 UNITS/3 ML VIAL SQ SCH ×4 (01:09→17:21)
[2017-09-20] MEDS: Ipratropium/Albuterol Neb 3 ML IH SCH ×6 (03:39→23:48)
[2017-09-20] MEDS: *HR* OxyCODONE ER (12 HR) 10 MG TABLET PO SCH ×2 (05:48→17:21)
[2017-09-20 05:53] LABS: Hematocrit 28.3 % (35.3-44.9)
[2017-09-20 05:54] LABS: Prothrombin Time 21.6 Seconds (9.4-12.1)
[2017-09-20 05:55] LABS: Basophils # 0.1 K/mcL (0.0-0.2); Basophils % 0.6 %; Eosinophils # 0.1 K/mcL (0.0-0.6); Eosinophils % 0.7 %; Hemoglobin 9.1 g/dL (11.5-15.4); Immature Granulocytes % 2.3 % (0-4); Lymphocytes % 11.6 %; Mean Corpuscular HGB Conc 32.2 g/dL (31.6-35.5); Mean Corpuscular Hemoglobin 31.4 pg (28.0-33.3); Mean Corpuscular Volume 97.6 fL (83.0-100.0); Mean Platelet Volume 10.8 fL (9.4-12.4); Monocytes # 0.8 K/mcL (0.0-1.3); Monocytes % 9.6 %; Nucleated Red Blood Cells 0.5 /100 WBC (0); Red Cell Distribution Width 18.2 % (11.5-14.5); Segmented Neutrophils % 75.2 %
[2017-09-20 06:06] LABS: Neutrophils # 6.3 K/mcL (1.6-8.9); Platelet Count 83 K/mcL (140-400)
[2017-09-20 06:18] LABS: % Iron Saturation 40 % (15-50); Ferritin 359 ng/ml (10-120); Iron 61 mcg/dL (50-170); Transferrin 110 mg/dL (203-362)
[2017-09-20 06:28] LABS: BUN/Creatinine Ratio 18 (6-26); Blood Urea Nitrogen 16 mg/dL (6-20); Calcium 8.6 mg/dL (8.6-10.3); Carbon Dioxide 21 mEq/L (23-29); Chloride 102 mEq/L (98-107); Glucose 95 mg/dL (70-105); Osmolality,Calculated 271 (280-300); Potassium 4.2 mEq/L (3.5-5.1); Sodium 130 mEq/L (136-145); eGFR For African Americans > 60 (> 60); eGFR For Non-African Americans > 60 (> 60)
[2017-09-20 06:34] LABS: Folate 5.1 ng/mL (3.0-16.0)
[2017-09-20 06:38] LABS: Hypochromasia Present (Not Present); Macrocytosis Present (Not Present); Platelet Estimate Decreased (Normal)
--- NOTE | 2017-09-20 11:02 | Internal Med Progress Note ---
Date of Encounter: 09/20/17 Time of Encounter: 11:00 - Assessment and plan (1) Liver cirrhosis Current Visit: Yes Status: Chronic Assessment and plan: history of liver cirrhosis with ascites; Hep B and C positive. S/p paracentesis of 1 L on 09/18/17 and of 3.9 L on 09/19/17. Due to limited size of volume removed, no additional albumin required. Analysis of fluid negative for SBP, likely account of patient's cirrhosis. Albumin 2.5, INR 2, bilirubin trending down. AST, alkaline phosphatase trending down as well. Cont home aldactone, lactulose. GI consulted. Qualifiers: Hepatic cirrhosis type: unspecified hepatic cirrhosis Ascites presence: with ascites Qualified Code(s): K74.60 - Unspecified cirrhosis of liver (2) Lymphadenopathy Current Visit: Yes Status: Acute Assessment and plan: found to have increased lymphadenopathy on abdominal CT. Likely contributor to patient hydronephrosis. Unclear if lymphadenopathy represents malignant versus reactive source. Oncology consulted and recommended lymph node biopsy. (3) LONG (acute kidney injury) Current Visit: Yes Status: Acute Assessment and plan: Cr 1.3; baseline normal. Renal function normalized with IV fluids. Monitor repeat renal function closely with CTA. (4) Pneumonitis Current Visit: Yes Status: Acute Assessment and plan: Chest x-ray shows left pleural effusion and consolidative density in right medial lung base and left lower lung. Could be related to pneumonitis. Effusion likely due to liver cirrhosis. Continue Levaquin. Continue breathing treatments. Continue supplemental oxygen as needed, wean as tolerated. Resp PCR and urinary antigens pending. (5) Colitis Current Visit: Yes Status: Suspected Assessment and plan: presented with ABD pain. ABD CT concerning for mild colitis and possible small bowel ileus suggested by increasing distention. Cancel stool studies due to lack of bowel movement/flatus. Keep NPO for now. Advance diet if tolerated and bowels started working (6) Hydronephrosis Current Visit: Yes Status: Acute Assessment and plan: presented with ABD pain. ABD CT showed slight development of right sided hydronephrosis. Evaluated by urology who did not feel stent was needed this time however may be necessary some point. Follow up outpatient. Qualifiers: Hydronephrosis type: other Qualified Code(s): N13.39 - Other hydronephrosis (7) Portal hypertension Current Visit: Yes Status: Acute Assessment and plan: ABD CT concerning for portal hypertension. No EGD available per chart review. Continue BB. GI consulted (8) Pancytopenia Current Visit: Yes Status: Acute Assessment and plan: in the setting of liver disease. CBC, anemia and platelets low but stable. Monitor repeat CBC (9) COPD (chronic obstructive pulmonary disease) Current Visit: Yes Status: Chronic Assessment and plan: history of COPD. Continue home breathing treatments. Supplemental oxygen as needed, wean as tolerated. Treating PNA as noted above Qualifiers: COPD type: unspecified COPD Qualified Code(s): J44.9 - Chronic obstructive pulmonary disease, unspecified (10) DM2 (diabetes mellitus, type 2) Current Visit: No Status: Chronic Assessment and plan: per hx. Blood sugars controlled. Cont SSI. Monitor blood sugar and titrate PRN Qualifiers: Diabetes mellitus terminal operations manager insulin use: with terminal operations manager use Diabetes mellitus complication status: with hyperglycemia Qualified Code(s): E11.65 - Type 2 diabetes mellitus with hyperglycemia; Z79.4 - long-term (current) use of insulin; Z79.4 - long-term (current) use of insulin; Z79.4 - technician terminal and repeater (current ) use of insulin; Z79.4 - long-term (current) use of insulin (11) DVT prophylaxis Current Visit: Yes Status: Acute Assessment and plan: SCD - Time Spent With Patient Total time spent is greater than 50% in coordination of care (as documented) at patient's floor/unit and/or counseling patient: - Subjective Interval history: Seen and examined at bedside. Patient is new to me, information obtained from chart review and patient report. She complains of diffuse pain, specifically abdominal pain. Says she is hungry and thirsty would like to eat/drink. Advised her she is nothing by mouth for biopsy. Chest pain or shortness of breath. - Constitutional Vitals: Temp Pulse Resp BP Pulse Ox 98.0 F 129 18 137/69 88 09/20/17 07:29 09/20/17 07:29 09/20/17 07:29 09/20/17 07:29 09/20/17 07:29 General appearance: Present: cooperative, A&O X 3, morbidly obese, pleasant, no acute distress, answers questions appropriately - Head Head exam: Present: atraumatic, normocephalic - Eye Eye exam: Present: PERRL, conjuntiva pink, sclera anicteric Pupils: Present: PERRL - Neck Neck exam general surgery: Present: supple, trachea midline. Absent: lymphadenopathy - Respiratory Respiratory exam: Present: CTAB. Absent: accessory muscle use, rales, rhonchi, wheezes - Cardiovascular Cardiovascular exam: Present: RRR, +S1, +S2. Absent: diastolic murmur, gallop, rubs, systolic murmur - GI/Abdominal GI/Abdominal exam: Present: normal bowel sounds, soft, no peritoneal signs. Absent: distended, tenderness - Extremities Exam Extremities exam: Present: pedal edema, warm, radial pulses palpable and symmetrical. Absent: calf tenderness, cyanotic - Neurological Exam Neurological exam: Present: CN II-XII intact, oriented X3, no focal deficits. Absent: pronater drift, facial droop, speech deficit - Skin Skin exam: Present: dry, intact. Absent: normal color Additional comments: Jaundice Internal Medicine: Result - Labs CBC & Chem 7: 09/20/17 04:44 09/20/17 04:44 Labs: Short CBC 09/20/17 Range/Units 04:44 WBC 8.4 (4.3-11.1) K/mcL Hgb 9.1 L (11.5-15.4) g/dL Hct 28.3 L (35.3-44.9) % Plt Count 83 L (140-400) K/mcL Neutrophils # 6.3 (1.6-8.9) K/mcL BMP 09/20/17 04:44 Sodium 130 L Potassium 4.2 Chloride 102 Carbon Dioxide 21 L BUN 16 Creatinine 0.91 Glucose 95 Calcium 8.6 - ABG Interpretation ABG results: PT/INR, D-dimer PT 21.6 Seconds (9.4-12.1) H 09/20/17 04:44 - Impressions Impressions Paracentesis Ultrasound 09/19/17 00:00 IMPRESSION: Successful ultrasound guided paracentesis. D/ / Leyla Petit MD / Leyla Petit MD Interpreting Provider: Leyla Petit MD Chest CT 09/19/17 17:48 IMPRESSION: 1. Moderate left pleural effusion with left base atelectasis. 2. Cirrhosis with stigmata of portal hypertension. 3. No pathologically enlarged lymph nodes identified in the chest. D/ / 09/19/2017 22:09:47 Shellie Loco MD / becky Interpreting Provider: Shellie Loco MD Soft Tissue Neck CT 09/19/17 17:48 IMPRESSION: No acute abnormality of the soft tissue structures of the neck. Left pleural effusion. D/ / Gopal Rodriguez / Gopal Rodriguez Interpreting Provider: Gopal Rodriguez Consult Discharge Plan - Plan Referrals: NONE,PCP [Primary Care Provider] -
[2017-09-20 11:18] LABS: Alanine Aminotransferase 14 Units/L (7-52); Albumin 2.5 g/dL (3.5-5.7); Albumin/Globulin Ratio 0.5 (1.1-2.2); Alkaline Phosphatase 168 Units/L (34-104); Aspartate Amino Transferase 47 Units/L (13-39); Bilirubin,Direct 1.9 mg/dL (0.0-0.2); Bilirubin,Indirect 1.6 mg/dL (0.0-1.2); Bilirubin,Total 3.5 mg/dL (0.3-1.0); Globulin 4.6 g/dL (2.4-3.5); Total Protein 7.1 g/dL (6.4-8.9)
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
[2017-09-20] MEDS: Lactulose Oral Soln 20 GM/30 ML UDC PO SCH ×3 (13:53→21:06)
[2017-09-20] MEDS: *HR* Metoprolol 5 MG/5 ML VIAL IVP PRN (15:02)
[2017-09-20] MEDS: Levofloxacin 750 MG/150 ML 750 MG/150 ML BAG IVPB SCH (17:21)
[2017-09-20] MEDS: OXYCODONE Oral CONC 10 MG/0.5 ML ORAL.SYG SL PRN (21:06)
[2017-09-20] MEDS: traZODone 50 MG TABLET PO SCH (21:06)
[2017-09-21] MEDS: Insulin LISPRO 300 UNITS/3 ML VIAL SQ SCH ×4 (00:14→18:05)
[2017-09-21] MEDS: Ipratropium/Albuterol Neb 3 ML IH SCH ×6 (03:01→23:20)
[2017-09-21] MEDS: *HR* OxyCODONE ER (12 HR) 10 MG TABLET PO SCH ×2 (06:03→18:03)
[2017-09-21 06:24] LABS: Hematocrit 27.2 % (35.3-44.9); Hemoglobin 8.9 g/dL (11.5-15.4); Immature Platelets 4.6 % (1.1-6.1); Mean Corpuscular HGB Conc 32.7 g/dL (31.6-35.5); Mean Corpuscular Hemoglobin 31.2 pg (28.0-33.3); Mean Corpuscular Volume 95.4 fL (83.0-100.0); Mean Platelet Volume 11.2 fL (9.4-12.4); Red Blood Count 2.85 M/mcL (3.82-4.97); Red Cell Distribution Width 17.7 % (11.5-14.5)
[2017-09-21 06:50] LABS: Alanine Aminotransferase 14 Units/L (7-52); Albumin 2.3 g/dL (3.5-5.7); Albumin/Globulin Ratio 0.5 (1.1-2.2); Alkaline Phosphatase 165 Units/L (34-104); Aspartate Amino Transferase 57 Units/L (13-39); BUN/Creatinine Ratio 16 (6-26); Bilirubin,Direct 1.9 mg/dL (0.0-0.2); Bilirubin,Total 3.1 mg/dL (0.3-1.0); Blood Urea Nitrogen 16 mg/dL (6-20); Calcium 8.6 mg/dL (8.6-10.3); Carbon Dioxide 23 mEq/L (23-29); Chloride 99 mEq/L (98-107); Globulin 4.5 g/dL (2.4-3.5); Glucose 98 mg/dL (70-105); Osmolality,Calculated 265 (280-300); Potassium 3.7 mEq/L (3.5-5.1); Sodium 127 mEq/L (136-145); Total Protein 6.8 g/dL (6.4-8.9); eGFR For African Americans > 60 (> 60); eGFR For Non-African Americans 60 (> 60)
[2017-09-21] MEDS: Lactulose Oral Soln 20 GM/30 ML UDC PO SCH ×4 (08:59→21:14)
[2017-09-21] MEDS ORDERED: NON-FORMULARY MEDICATION 1 EACH EACH (Duloxetine Hcl [Cymbalta] 60 MG) PO SCH (09:00)
[2017-09-21] MEDS: risperiDONE 1 MG TABLET PO SCH (09:00)
[2017-09-21] MEDS: Furosemide 40 MG TABLET PO SCH ×3 (09:10→18:03)
[2017-09-21 12:06] LABS: INR 2.1; Prothrombin Time 22.8 Seconds (9.4-12.1)
--- NOTE | 2017-09-21 13:45 | Gastroenterology Progress Note ---
<Tarik Bruno - Last Filed: 09/21/17 13:42> Date of Encounter: 09/21/17 Time of Encounter: 13:42 - Assessment and plan (1) Enteritis Status: Acute Assessment and plan: CT abdominal and pelvis revealed right-sided hydronephrosis, findings suggestive of mild colitis, increasing distention of small bowel suggesting ileus, ascites, and cirrhosis with stigmata of portal hypertension. Patient is already on Levaquin for PNA treatment Stool studies were cancelled due to lack of bowel movement/flatus. Her EGD was cancelled today due to INR 2.1. Vitamin K has been given. NPO after midnight Anticipate EGD tomorrow (2) Cirrhosis of liver with ascites Status: Acute Assessment and plan: Patient with history of liver cirrhosis with ascites, Hepatitis profile was positive for Hepatitis B and Hepatitis C. MELD-Na Score 24 points, 14 - 15% Estimated 90-Day Mortality Child Cummings class C, Life Expectancy: 1-3 years. Abdominal surgery carol- operative mortality: 82% CT abdominal and pelvis revealed ascites and cirrhosis with stigmata of portal hypertension. Paracentesis was done on 09/18/17 with removal of 1000 mL clear yellow ascites fluid and on 09/19/17 with removal of 3900 mL clear yellow ascites fluid. Analysis of fluid negative for SBP. Patient given Albumin. LFTs improving. Continue Aldactone, Lactulose. Recommend resuming Lasix given improved renal function Qualifiers: Hepatic cirrhosis type: unspecified hepatic cirrhosis Qualified Code(s): K74.60 - Unspecified cirrhosis of liver - Time Spent With Patient Total time spent is greater than 50% in coordination of care (as documented) at patient's floor/unit and/or counseling patient: - Subjective Interval history: Patient seen and examined. Patient denies any new c/o. Her EGD was cancelled today due to INR 2.1. Vitamin K has been given. Anticipate EGD tomorrow. - Constitutional Vitals: Temp Pulse Resp BP Pulse Ox 98.1 F 125 16 134/77 96 09/21/17 06:47 09/21/17 06:47 09/21/17 11:03 09/21/17 06:47 09/21/17 11:03 General appearance: Present: cooperative, A&O X 3, morbidly obese, no acute distress, answers questions appropriately - Head Head exam: Present: atraumatic, normocephalic - Eye Eye exam: Present: normal appearance, sclera anicteric - ENT ENT exam: Present: mucous membranes dry, normal oropharynx - Neck Neck exam general surgery: Present: normal inspection, trachea midline - Respiratory Respiratory exam: Present: CTAB - Cardiovascular Cardiovascular exam: Present: RRR, +S1, +S2 - GI/Abdominal GI/Abdominal exam: Present: normal bowel sounds, soft, tenderness, no peritoneal signs - Rectal Rectal exam: Present: deferred - Extremities Exam Extremities exam: Present: warm. Absent: pedal edema - Neurological Exam Neurological exam: Present: oriented X3, no focal deficits - Psychiatric Psychiatric exam: Present: normal affect, normal mood - Skin Skin exam: Present: dry, intact, normal color, warm Results - Labs CBC & Chem 7: 09/21/17 04:59 09/21/17 04:59 Labs: Last Result Calcium 8.6 mg/dL (8.6-10.3) 09/21/17 04:59 Iron 61 mcg/dL (50-170) 09/20/17 04:44 % Saturation 40 % (15-50) 09/20/17 04:44 Transferrin 110 mg/dL (203-362) L 09/20/17 04:44 Ferritin 359 ng/ml (10-120) H 09/20/17 04:44 Troponin I < 0.03 ng/mL (< 0.04) 09/17/17 22:19 Vitamin B12 1434 pg/mL (250-1100) H 09/20/17 04:44 Folate 5.1 ng/mL (3.0-16.0) 09/20/17 04:44 Peritoneal Appearance CLEAR (Clear) 09/18/17 15:00 Peritoneal Volume 1050.0 mL 09/18/17 15:00 Peritoneal RBC < 0.002 M/mcL (0.000-0.002) 09/18/17 15:00 Periton Tot Nuc Cells 311 TNC/mcL (0-300) H 09/18/17 15:00 Periton Band Neuts Test Not Performed 09/18/17 15:00 Periton Lymphocytes % 42.0 % 09/18/17 15:00 Periton Monocytes % Test Not Performed 09/18/17 15:00 Periton Other Cells % 4.0 % 09/18/17 15:00 Peritoneal Tot Protein < 3.0 g/dL (No Ref Range) 09/18/17 15:00 Peritoneal Albumin < 1.5 g/dL (No Ref Range) 09/18/17 15:00 Peritoneal LDH 35 Units/L (No Ref Range) 09/18/17 15:00 Peritoneal Glucose 102 mg/dL (No Ref Range) 09/18/17 15:00 Peritoneal Amylase < 10 Units/L (No Ref Range) 09/18/17 15:00 Entire Visit Hgb 8.9 g/dL (11.5-15.4) L 09/21/17 04:59 Hct 27.2 % (35.3-44.9) L 09/21/17 04:59 PT 22.8 Seconds (9.4-12.1) H 09/21/17 10:50 Ferritin 359 ng/ml (10-120) H 09/20/17 04:44 Total Bilirubin 3.1 mg/dL (0.3-1.0) H 09/21/17 04:59 AST 57 Units/L (13-39) H 09/21/17 04:59 ALT 14 Units/L (7-52) 09/21/17 04:59 Ammonia 35 mcmol/L (16-53) 09/17/17 22:19 Lipase 51 Units/L (11-82) 09/17/17 22:19 Folate 5.1 ng/mL (3.0-16.0) 09/20/17 04:44 - ABG ABG results: PT/INR, D-dimer PT 22.8 Seconds (9.4-12.1) H 09/21/17 10:50 Consult Discharge Plan - Plan Instructions: Chest Pain (DC), Urinary Tract Infection in Women (DC), Diabetes Mellitus Type 2 in Adults (DC), Chronic Obstructive Pulmonary Disease (DC), Anxiety (DC), Pneumonia (DC) Referrals: NONE,PCP [Primary Care Provider] - <Joseph Norton - Last Filed: 10/10/17 07:43> Date of Encounter: 09/21/17 - Time Spent With Patient Total time spent is greater than 50% in coordination of care (as documented) at patient's floor/unit and/or counseling patient: - Constitutional Vitals: Temp Pulse Resp BP Pulse Ox 97.7 F 108 16 105/72 94 09/22/17 19:01 09/22/17 19:01 09/22/17 19:01 09/22/17 19:01 09/22/17 19:01 Results - Labs CBC & Chem 7: 09/22/17 03:00 09/22/17 03:00 Labs: Last Result Calcium 8.6 mg/dL (8.6-10.3) 09/22/17 03:00 Iron 61 mcg/dL (50-170) 09/20/17 04:44 % Saturation 40 % (15-50) 09/20/17 04:44 Transferrin 110 mg/dL (203-362) L 09/20/17 04:44 Ferritin 359 ng/ml (10-120) H 09/20/17 04:44 Troponin I < 0.03 ng/mL (< 0.04) 09/17/17 22:19 Vitamin B12 1434 pg/mL (250-1100) H 09/20/17 04:44 Folate 5.1 ng/mL (3.0-16.0) 09/20/17 04:44 Peritoneal Appearance CLEAR (Clear) 09/18/17 15:00 Peritoneal Volume 1050.0 mL 09/18/17 15:00 Peritoneal RBC < 0.002 M/mcL (0.000-0.002) 09/18/17 15:00 Periton Tot Nuc Cells 311 TNC/mcL (0-300) H 09/18/17 15:00 Periton Band Neuts Test Not Performed 09/18/17 15:00 Periton Lymphocytes % 42.0 % 09/18/17 15:00 Periton Monocytes % Test Not Performed 09/18/17 15:00 Periton Other Cells % 4.0 % 09/18/17 15:00 Peritoneal Tot Protein < 3.0 g/dL (No Ref Range) 09/18/17 15:00 Peritoneal Albumin < 1.5 g/dL (No Ref Range) 09/18/17 15:00 Peritoneal LDH 35 Units/L (No Ref Range) 09/18/17 15:00 Peritoneal Glucose 102 mg/dL (No Ref Range) 09/18/17 15:00 Peritoneal Amylase < 10 Units/L (No Ref Range) 09/18/17 15:00 Hep Bs Ag Confirmation POSITIVE (Non Confirmed) A 09/18/17 13:37 Entire Visit Hgb 8.1 g/dL (11.5-15.4) L 09/22/17 03:00 Hct 25.3 % (35.3-44.9) L 09/22/17 03:00 PT 23.8 Seconds (9.4-12.1) H 09/22/17 03:00 Ferritin 359 ng/ml (10-120) H 09/20/17 04:44 Total Bilirubin 2.6 mg/dL (0.3-1.0) H 09/22/17 03:00 AST 53 Units/L (13-39) H 09/22/17 03:00 ALT 12 Units/L (7-52) 09/22/17 03:00 Ammonia 85 mcmol/L (16-53) H 09/22/17 13:00 Lipase 51 Units/L (11-82) 09/17/17 22:19 Folate 5.1 ng/mL (3.0-16.0) 09/20/17 04:44 - ABG ABG results: PT/INR, D-dimer PT 23.8 Seconds (9.4-12.1) H 09/22/17 03:00 - Attending Attestation I examined this patient and my medical decision-making was reviewed with the Resident Physician. I agree with the documented findings, disposition and treatment plan as described except to the extent set forth below.
--- NOTE | 2017-09-21 14:36 | Internal Med Progress Note ---
Date of Encounter: 09/21/17 Time of Encounter: 14:35 - Assessment and plan (1) Liver cirrhosis Current Visit: Yes Status: Chronic Assessment and plan: history of liver cirrhosis with ascites; Hep B and C positive. S/p paracentesis of 1 L on 09/18/17 and of 3.9 L on 09/19/17. Due to limited size of volume removed, no additional albumin required. Analysis of fluid negative for SBP, likely account of patient's cirrhosis. Albumin 2.5, INR 2, bilirubin trending down. AST, alkaline phosphatase trending down as well. Cont home lasix, aldactone, lactulose. GI noted MELD-Na Score 24 and Child Cummings class C. decompensated with recurrent ascites and lower extremity edema. Trial albumin, continue home diuretics. Monitor repeat LFTs Qualifiers: Hepatic cirrhosis type: unspecified hepatic cirrhosis Ascites presence: with ascites Qualified Code(s): K74.60 - Unspecified cirrhosis of liver (2) Lymphadenopathy Current Visit: Yes Status: Acute Assessment and plan: found to have increased lymphadenopathy on abdominal CT. Likely contributor to patient hydronephrosis. Unclear if lymphadenopathy represents malignant versus reactive source. Oncology consulted and recommended lymph node biopsy. Will need to have INR less than 1.5 for paracentesis. Received one-time dose vitamin K per GI. Monitor repeat INR in the morning. May need FFP. (3) LONG (acute kidney injury) Current Visit: Yes Status: Acute Assessment and plan: Cr 1.3; baseline normal. Renal function normalized with IV fluids. Monitor repeat renal function closely with CTA. (4) Pneumonitis Current Visit: Yes Status: Acute Assessment and plan: Chest x-ray shows left pleural effusion and consolidative density in right medial lung base and left lower lung. Could be related to pneumonitis. Effusion likely due to liver cirrhosis. Continue Levaquin. Continue breathing treatments. Continue supplemental oxygen as needed, wean as tolerated. Resp PCR and urinary antigens pending. (5) Colitis Current Visit: Yes Status: Suspected Assessment and plan: presented with ABD pain. ABD CT concerning for mild colitis and possible small bowel ileus suggested by increasing distention. Cancel stool studies due to lack of bowel movement/flatus. Keep NPO for now. Advance diet if tolerated and bowels started working (6) Hydronephrosis Current Visit: Yes Status: Acute Assessment and plan: presented with ABD pain. ABD CT showed slight development of right sided hydronephrosis. Evaluated by urology who did not feel stent was needed this time however may be necessary some point. Follow up outpatient. Qualifiers: Hydronephrosis type: other Qualified Code(s): N13.39 - Other hydronephrosis (7) Portal hypertension Current Visit: Yes Status: Acute Assessment and plan: ABD CT concerning for portal hypertension. No EGD available per chart review. Continue BB. GI planning EGD once INR less than 1.5 (8) Pancytopenia Current Visit: Yes Status: Acute Assessment and plan: in the setting of liver disease. CBC, anemia and platelets low but stable. Monitor repeat CBC (9) COPD (chronic obstructive pulmonary disease) Current Visit: Yes Status: Chronic Assessment and plan: history of COPD. Continue home breathing treatments. Supplemental oxygen as needed, wean as tolerated. Treating PNA as noted above Qualifiers: COPD type: unspecified COPD Qualified Code(s): J44.9 - Chronic obstructive pulmonary disease, unspecified (10) DM2 (diabetes mellitus, type 2) Current Visit: No Status: Chronic Assessment and plan: per hx. Blood sugars controlled. Cont SSI. Monitor blood sugar and titrate PRN Qualifiers: Diabetes mellitus chcf insulin use: with chcf use Diabetes mellitus complication status: with hyperglycemia Qualified Code(s): E11.65 - Type 2 diabetes mellitus with hyperglycemia; Z79.4 - parts counterman (current) use of insulin; Z79.4 - parts counterman (current) use of insulin; Z79.4 - parts counterman (current ) use of insulin; Z79.4 - snf (current) use of insulin (11) Hyponatremia Current Visit: Yes Status: Acute Assessment and plan: Na 127; in the setting of fluid overload with compensated cirrhosis and resuming Lasix. Neurologically intact. Monitor repeat Na level (12) DVT prophylaxis Current Visit: Yes Status: Acute Assessment and plan: SCD - Time Spent With Patient Total time spent is greater than 50% in coordination of care (as documented) at patient's floor/unit and/or counseling patient: - Subjective Interval history: Seen and examined at bedside; mentation seems improved on today's exam although she is forgetful. She complains of diffuse body aches, worse to abdomen. No chest pain or shortness of breath - Constitutional Vitals: Temp Pulse Resp BP Pulse Ox 98.1 F 125 16 134/77 96 09/21/17 06:47 09/21/17 06:47 09/21/17 11:03 09/21/17 06:47 09/21/17 11:03 General appearance: Present: cooperative, A&O X 3, morbidly obese, pleasant, no acute distress, answers questions appropriately - Head Head exam: Present: atraumatic, normocephalic - Eye Eye exam: Present: PERRL, conjuntiva pink, sclera anicteric Pupils: Present: PERRL - Neck Neck exam general surgery: Present: supple, trachea midline. Absent: lymphadenopathy - Respiratory Respiratory exam: Present: CTAB. Absent: accessory muscle use, rales, rhonchi, wheezes - Cardiovascular Cardiovascular exam: Present: RRR, +S1, +S2. Absent: diastolic murmur, gallop, rubs, systolic murmur - GI/Abdominal GI/Abdominal exam: Present: normal bowel sounds, soft, no peritoneal signs. Absent: distended, tenderness - Extremities Exam Extremities exam: Present: pedal edema, warm, radial pulses palpable and symmetrical. Absent: calf tenderness, cyanotic - Neurological Exam Neurological exam: Present: CN II-XII intact, oriented X3, no focal deficits. Absent: pronater drift, facial droop, speech deficit - Skin Skin exam: Present: dry, intact Internal Medicine: Result - Labs CBC & Chem 7: 09/21/17 04:59 09/21/17 04:59 Labs: Short CBC 09/21/17 Range/Units 04:59 WBC 7.9 (4.3-11.1) K/mcL Hgb 8.9 L (11.5-15.4) g/dL Hct 27.2 L (35.3-44.9) % Plt Count 81 L (140-400) K/mcL BMP 09/21/17 04:59 Sodium 127 L Potassium 3.7 Chloride 99 Carbon Dioxide 23 BUN 16 Creatinine 0.97 Glucose 98 Calcium 8.6 Liver Function 09/21/17 Range/Units 04:59 Total Bilirubin 3.1 H (0.3-1.0) mg/dL Direct Bilirubin 1.9 H (0.0-0.2) mg/dL AST 57 H (13-39) Units/L ALT 14 (7-52) Units/L Alkaline Phosphatase 165 H (34-104) Units/L Albumin 2.3 L (3.5-5.7) g/dL - ABG Interpretation ABG results: PT/INR, D-dimer PT 22.8 Seconds (9.4-12.1) H 09/21/17 10:50 Consult Discharge Plan - Plan Referrals: NONE,PCP [Primary Care Provider] -
[2017-09-21] MEDS ORDERED: Albumin 25% 25gram/100mL 25 GM/100 ML IV.SOLN IVPB SCH (16:00)
[2017-09-21] MEDS: Levofloxacin 750 MG/150 ML 750 MG/150 ML BAG IVPB SCH (18:04)
[2017-09-21] MEDS: traZODone 50 MG TABLET PO SCH (21:12)
[2017-09-21] MEDS: OXYCODONE Oral CONC 10 MG/0.5 ML ORAL.SYG SL PRN (21:15)
[2017-09-21 23:25] LABS: Adenovirus Not Detected (Not Detect); Bordetella Pertussis Not Detected (Not Detect); Chlamydophila pneumoniae Not Detected (Not Detect); Coronavirus 229E Not Detected (Not Detect); Coronavirus HKU1 Not Detected (Not Detect); Coronavirus NL63 Not Detected (Not Detect); Coronavirus OC43 Not Detected (Not Detect); Human Metapneumovirus Not Detected (Not Detect); Human Rhinovirus/Enterovirus Not Detected (Not Detect); Influenza A Subtype 2009 H1 Not Detected (Not Detect); Influenza A Untypeable Not Detected (Not Detect); Influenza B Not Detected (Not Detect); Mycoplasma pneumoniae Not Detected (Not Detect); Parainfluenza Virus 1 Not Detected (Not Detect); Parainfluenza Virus 2 Not Detected (Not Detect); Parainfluenza Virus 3 Not Detected (Not Detect); Parainfluenza Virus 4 Not Detected (Not Detect); Respiratory Syncytial Virus Not Detected (Not Detect)
[2017-09-22] MEDS: Insulin LISPRO 300 UNITS/3 ML VIAL SQ SCH ×4 (00:05→17:17)
[2017-09-22] MEDS: Albumin 25% 25gram/100mL 25 GM/100 ML IV.SOLN IVPB SCH ×3 (00:31→17:19)
[2017-09-22 03:19] LABS: Hematocrit 25.3 % (35.3-44.9); Hemoglobin 8.1 g/dL (11.5-15.4); Immature Platelets 4.5 % (1.1-6.1); Mean Corpuscular Hemoglobin 31.3 pg (28.0-33.3); Mean Corpuscular Volume 97.7 fL (83.0-100.0); Mean Platelet Volume 10.4 fL (9.4-12.4); Red Blood Count 2.59 M/mcL (3.82-4.97); Red Cell Distribution Width 18.2 % (11.5-14.5)
[2017-09-22 03:23] LABS: INR 2.2; Prothrombin Time 23.8 Seconds (9.4-12.1)
[2017-09-22] MEDS: Ipratropium/Albuterol Neb 3 ML IH SCH ×4 (03:30→15:42)
[2017-09-22 04:08] LABS: Alanine Aminotransferase 12 Units/L (7-52); Albumin/Globulin Ratio 0.8 (1.1-2.2); Alkaline Phosphatase 144 Units/L (34-104); Aspartate Amino Transferase 53 Units/L (13-39); BUN/Creatinine Ratio 13 (6-26); Bilirubin,Total 2.6 mg/dL (0.3-1.0); Blood Urea Nitrogen 14 mg/dL (6-20); Calcium 8.6 mg/dL (8.6-10.3); Carbon Dioxide 24 mEq/L (23-29); Chloride 100 mEq/L (98-107); Globulin 3.8 g/dL (2.4-3.5); Glucose 108 mg/dL (70-105); Osmolality,Calculated 267 (280-300); Potassium 3.7 mEq/L (3.5-5.1); Sodium 128 mEq/L (136-145); Total Protein 6.8 g/dL (6.4-8.9); eGFR For African Americans > 60 (> 60); eGFR For Non-African Americans 54 (> 60)
[2017-09-22] MEDS ORDERED: 0.9 % Sodium Chloride 500 ML ONE (05:53)
[2017-09-22] MEDS: *HR* OxyCODONE ER (12 HR) 10 MG TABLET PO SCH (06:11)
[2017-09-22] MEDS: Furosemide 40 MG TABLET PO SCH ×3 (08:11→17:17)
[2017-09-22] MEDS: Lactulose Oral Soln 20 GM/30 ML UDC PO SCH ×3 (08:11→17:17)
[2017-09-22] MEDS: risperiDONE 1 MG TABLET PO SCH (08:11)
[2017-09-22] MEDS: OXYCODONE Oral CONC 10 MG/0.5 ML ORAL.SYG SL PRN ×2 (08:12→14:53)
--- NOTE | 2017-09-22 11:12 | Oncology Inp Progress Note ---
Date of Encounter: 09/22/17 Time of Encounter: 10:45 (1) Liver cirrhosis Current Visit: Yes Status: Chronic Assessment and plan: Chronic anemia/thrombocytopenia secondary to cirrhosis of the liver, Hepatitis B and C positive. S/P paracentesis of 1 L on 09/18/17 and of 3.9 L on 09/19/17 She is on aldactone and lactulose. EGD cancelled due to INR of 2.2 (did not improve with Vitamin K), was planned to give FFP, but procedure placed on hold now that patient is planned for potential transfer to tertiary care center where Roundhouse Worker can assist in her care Qualifiers: Hepatic cirrhosis type: unspecified hepatic cirrhosis Ascites presence: with ascites Qualified Code(s): K74.60 - Unspecified cirrhosis of liver (2) Hydronephrosis Current Visit: Yes Status: Acute Assessment and plan: Urology consult reviewed, no need for urgent stent at this time, continue to monitor renal function. Lymphadenopathy likely contributing. Kidney function improved Qualifiers: Hydronephrosis type: other Qualified Code(s): N13.39 - Other hydronephrosis (3) Lymphadenopathy Current Visit: Yes Status: Acute Assessment and plan: CT abdomen/pelvis shows right-sided hydronephrosis, colitis, ascites and numerous retroperitoneal lymph nodes, an ovoid soft tissue density medial to the right kidney is noted which measures approximately 3.7 x 2.1 cm and numerous mesenteric nodes. CT imaging reviewed by Dr. Martinez, concerning for lymphoma. CT imaging with contrast of the soft tissue neck and chest revealed no pathologically enlarged lymph nodes. She reports subjective fevers/chills, denies other B symptoms. Her LDH is normal. She was planned for biopsy during her inpatient admission. This was delayed due to elevated INR. Notified by Dr. Petit with IR that lymphadenopathy appears to be mild and would not recommend biopsy at this time, recommended repeat imaging in about [address] Martinez aware. I have arranged for a follow up with Dr. Martinez on October 18 at 9:40 am. She is planned for repeat CT abdomen/pelvis with contrast on 10/14/2017 at 9:40 am ( arrival time 8 am)- I will notify her nursing facility regarding these appointments. Discussed the plan as above with patient at bedside. Oncology: Subj Interval history: Ms. Tirado is sitting in bed, appears to be in no distress at this time. She is slightly drowsy, no confusion noted but seems to be forgetful (she could not remember the name of the shelter where she lives). Reports pain is currently controlled. - Constitutional Vitals: Vital Signs Temp Pulse Resp BP Pulse Ox 09/22/17 10:44 97.7 F 90 16 120/82 93 09/22/17 09:06 97.9 F 107 18 111/60 93 09/22/17 07:56 16 94 09/22/17 07:42 97.5 F L 103 16 107/67 94 09/22/17 06:09 97.6 F 104 16 111/70 92 09/22/17 05:59 97.7 F 104 16 115/77 94 09/22/17 02:42 97.7 F 106 14 106/68 94 09/21/17 23:20 16 95 09/21/17 23:07 97.8 F 103 14 103/70 93 09/21/17 21:05 102/64 09/21/17 20:43 17 94 09/21/17 20:05 97.7 F 108 16 85/59 94 09/21/17 16:52 16 87 09/21/17 15:37 97.8 F 103 18 117/77 87 09/21/17 11:03 16 96 Intake and Output 09/21/17 09/22/17 09/22/17 23:59 07:59 15:59 Intake Total 470 / 470 100 / 100 415 / 415 Output Total 200 / 200 200 / 200 Balance 470 / 470 -100 / -100 215 / 215 Intake: IV Fluids 250 / 250 100 / 100 100 / 100 Flexbumin 25 gm In 100 ml @ 60 100 / 100 100 / 100 100 / 100 mls/hr IVPB Q8HR SAM Rx#: [id number] Levaquin Premix 750mg/150 mL 150 / 150 750 mg In 150 ml @ 100 mls/hr IVPB Q24H SAM Rx#:[id number] Oral 220 / 220 0 / 0 Blood Product 0 / 0 315 / 315 Plasma Unit [id number] 0 / 0 315 / 315 Output: Urine 200 / 200 200 / 200 Other: Stool Size Moderate Large Stool Consistency liquid loose liquid Stool Characteristics Normal for Patient Stool Color Brown Brown Green # Voids 2 # Bowel Movements 1 1 1 Weight 107.3 kg Blood Glucose* 98 125 Patient Weight 09/22/17 23:59 Weight 107.3 kg General appearance: cooperative, no acute distress, no febrile Exam: chronically ill appearing - Head Head exam: Present: atraumatic - Eye Eye exam: Present: normal appearance - ENT ENT exam: Present: mucous membranes moist - Respiratory Respiratory exam: Present: wheezes. Absent: respiratory distress - Cardiovascular Cardiovascular exam: Present: RRR, +S1, +S2, tachycardia - GI/Abdominal GI/Abdominal exam: Present: distended, normal bowel sounds, soft, tenderness - Extremities Exam Extremities exam: Absent: calf tenderness Additional comments: 2+ pitting edema BLE - Neurological Exam Neurological exam: Present: alert, oriented X3, no focal deficits, strengths equal and symetr throughout - Psychiatric Psychiatric exam: Present: flat affect, normal mood - Skin Skin exam: Present: dry, intact, normal color, warm Oncology: Obj Data - Labs CBC & Chem 7: 09/22/17 03:00 09/22/17 03:00 - Impressions Impressions Chest CTA 09/20/17 11:14 IMPRESSION: 1. No evidence of pulmonary embolus. 2. [id number] left pleural effusion with left lower lobe compressive atelectasis. 3. Emphysema. 4. Cirrhosis with ascites and splenomegaly. D/ / 09/20/2017 13:18:14 Bossman Gomez MD / [facility] Interpreting Provider: Bossman Gomez MD - ABG Interpretation ABG results: PT/INR, D-dimer PT 23.8 Seconds (9.4-12.1) H 09/22/17 03:00 Consult Discharge Plan - Plan Referrals: NONE,PCP [Primary Care Provider] -
[2017-09-22] MEDS ORDERED: 0.9 % Sodium Chloride 250 ML ONE (11:39)
--- NOTE | 2017-09-22 13:48 | Discharge Summary ---
Orders not resulted at time of discharge: Pending orders 09/19/17 17:42 Tissue Flow Cytometry Routine Surgical Pathology [PTH] Routine 09/20/17 04:44 Protein Electrophoresis AM 0400 09/21/17 15:23 Legionella Antigen [RM] Stat S. Pneumoniae Antigen [RM] Stat 09/22/17 04:57 PLASMA [BBK] Stat Type and Screen [BBK] Stat 09/22/17 13:00 Ammonia Stat 09/23/17 04:00 CMP [Comprehensive Metabolic Panel] AM 0400 Complete Blood Count w/o Diff [HEME] AM 0400 09/24/17 04:00 CMP [Comprehensive Metabolic Panel] AM 0400 Complete Blood Count w/o Diff [HEME] AM 0400 09/25/17 04:00 CMP [Comprehensive Metabolic Panel] AM 0400 Complete Blood Count w/o Diff [HEME] AM 0400 09/26/17 04:00 CMP [Comprehensive Metabolic Panel] AM 0400 Complete Blood Count w/o Diff [HEME] AM 0400 Date of Encounter: 09/22/17 Time of Encounter: 13:31 - Discharge Diagnosis (1) Liver cirrhosis Priority: Primary Status: Chronic Comments: history of liver cirrhosis with ascites; Hep B and C positive. S/p paracentesis of 1 L on 09/18/17 and of 3.9 L on 09/19/17. Analysis of fluid negative for SBP. Evaluated by GI who noted MELD-Na Score 24 and Child Cummings class C. Now decompensated with recurrent ascites, lower extremity edema and hepatic encephalopathy. AST 53, alkaline phosphatase 144, Albumin 3, INR 2.2. Ammonia 85; on lactuose and having bowel movements per intake and output record. With increased lethargy and appears ascites is worsening on 09/22/17 exam; concerned for further decompensation. Recommend transfer to tertiary hospital that has hepatobiliary specialist. Patient's guardian in agreement to transfer, patient updated as well. Discussed case with [facility] transfer center who accepted patient for Lead Embedded Software Engineer consultation. Qualifiers: Hepatic cirrhosis type: unspecified hepatic cirrhosis Ascites presence: with ascites Qualified Code(s): K74.60 - Unspecified cirrhosis of liver (2) Portal hypertension Priority: Primary Status: Acute Comments: ABD CT concerning for portal hypertension. No EGD available per chart review. Continue BB. GI planning EGD once INR less than 1.5 (INR 2.214/11/04; received 2 units FFP). Defer EGD to [facility] (3) Lymphadenopathy Priority: Primary Status: Acute Comments: CT abdomen/pelvis showed numerous enlarged retroperitoneal and mesenteric nodes which appeared to be new compared to 08/27/[address] Evaluated by oncology who noted concern for lymphoma. Plan was for biopsy however CT scan was evaluated by interventional radiology who thought lymph nodes warm and mildly enlarged and recommended repeat imaging. (4) LONG (acute kidney injury) Priority: Primary Status: Acute Comments: Cr 1.3; baseline normal. Renal function normalized with IV fluids. (5) Pneumonitis Priority: Primary Status: Acute Comments: Chest x-ray shows left pleural effusion and consolidative density in right medial lung base and left lower lung concerning for pneumonitis. Chest CTA with small to moderate left pleural effusion and atelectasis. Respiratory PCR negative. No evidence of pneumonia. Effusion likely due to liver cirrhosis. Received 4 doses IV Levaquin. Afebrile, no elevated WBC, no cough. Clinically does not appear to be pneumonia. (6) Colitis Priority: Primary Status: Suspected Comments: presented with ABD pain. ABD CT concerning for mild colitis and possible small bowel ileus suggested by increasing distention. No loose stool. Evaluated by GI who noted likely enteritis. Abdominal pain likely secondary to ascites. Tolerating regular diet and having to 3 BMs/day. (7) Hydronephrosis Priority: Primary Status: Acute Comments: presented with ABD pain. ABD CT showed slight development of right sided hydronephrosis. Evaluated by urology who did not feel stent was needed this time however may be necessary some point. Follow up outpatient. Qualifiers: Hydronephrosis type: other Qualified Code(s): N13.39 - Other hydronephrosis (8) Pancytopenia Priority: Primary Status: Acute Comments: in the setting of liver disease. CBC, anemia and platelets low but stable. (9) COPD (chronic obstructive pulmonary disease) Priority: Primary Status: Chronic Comments: history of COPD. no evidence of exacerbation. Treated for possible pneumonia as noted above. Continue PRN duo nebs Qualifiers: COPD type: unspecified COPD Qualified Code(s): J44.9 - Chronic obstructive pulmonary disease, unspecified (10) DM2 (diabetes mellitus, type 2) Priority: Primary Status: Chronic Comments: per hx. Blood sugars controlled Qualifiers: Diabetes mellitus button machine operator insulin use: with button machine operator use Diabetes mellitus complication status: with hyperglycemia Qualified Code(s): E11.65 - Type 2 diabetes mellitus with hyperglycemia; Z79.4 - bottle tester (current) use of insulin; Z79.4 - bottle tester (current) use of insulin; Z79.4 - bottle tester (current ) use of insulin; Z79.4 - bottle tester (current) use of insulin (11) Hyponatremia Priority: Primary Status: Acute Comments: Na 127; in the setting of fluid overload with compensated cirrhosis and resuming Lasix. Neurologically intact. Hospital course: See assessment and plan for Hospital course Discharge discussed with: patient (Seen and examined at bedside. More lethargic than yesterday. Discussed case with Dr. Zavala and GI and decision made to transfer to [facility] for liver specialist consultation) - Time Spent with Patient Total time spent providing and/or coordinating discharge services: - Discharge Medications Home Medications: Albuterol Sulfate [Proair Hfa] 1 puff IH Q4H PRN #1 inh 06/06/16 [Rx] Duloxetine HCl [Cymbalta] 60 mg PO DAILY 06/08/16 [History] Omeprazole [PriLOSEC] 20 mg PO DAILY 06/08/16 [History] Insulin LISPRO [HumaLOG] 0 units SQ TIDAC vial 06/18/16 [Rx] Ipratropium/Albuterol Neb [Duoneb] 3 ml IH [id number] #30 inhsol 06/18/16 [Rx] risperiDONE [Risperidone] 1 mg PO DAILY 08/27/17 [History] Spironolactone [Aldactone] 50 mg PO BID #0 09/08/17 [Rx] Furosemide [Lasix] 40 mg PO TID 09/18/17 [History] Lactulose 20 gm PO QID 09/18/17 [History] Duloxetine HCl [Cymbalta] 60 mg PO QAM 09/19/17 [History] Insulin LISPRO [HumaLOG] 0 units SQ Q6HR vial 09/22/17 [Rx] Metoprolol [Lopressor] 2.5 mg IVP Q6HR PRN vial 09/22/17 [Rx] Metoprolol [Lopressor] 12.5 mg PO BID tablet 09/22/17 [Rx] Allergies/Adverse Reactions: 3 Allergy/AdvReac Type Severity Reaction Status Date / Time codeine AdvReac Anaphylaxis Verified 09/17/17 22:12 Date of admission: 09/18/17 04:39 Primary care physician: PCP NONE Consults: 09/18/17 04:53 Consult to Urology [CONS] Routine Consulting Provider: Urology [place] Reason for Consult: Right hydronephrosis and most likely pyelonephritis Call Completed: Yes 09/18/17 12:53 Consult to Oncology [CONS] Routine Consulting Provider: Oncology [facility] Reason for Consult: retroperitoneal lyphadenopathy Call Completed: No 09/19/17 10:49 Consult to Interventional Radiology [CONS] Routine Consulting Provider: Radiology [facility] [place] Reason for Consult: Needs therapeutic paracentesis Call Completed: Yes 09/19/17 17:42 Consult to Interventional Radiology [CONS] Routine Consulting Provider: Radiology [facility] [place] Reason for Consult: retroperitoneal lymph node biopsy-will call in AM Call Completed: No 09/20/17 11:51 Consult to Gastroenterology [CONS] Routine Consulting Provider: Gastroenterology [place] Reason for Consult: Cirrhosis Call Completed: Yes 09/21/17 15:07 Consult to Invasive Line Access Team [CONS] Routine Reason for Consult: limited access Line Type: EPIV Discharging clinician: Beata Wiseman Anticipated date of discharge: 09/22/17 - Constitutional Vitals: Temp Pulse Resp BP Pulse Ox 97.4 F L 106 16 106/68 93 09/22/17 12:02 09/22/17 12:02 09/22/17 12:02 09/22/17 12:02 09/22/17 12:02 General appearance: Present: cooperative, A&O X 1, A&O X 2, morbidly obese, pleasant, no acute distress, answers questions appropriately - Head Head exam: Present: atraumatic, normocephalic - Eye Eye exam: Present: PERRL, conjuntiva pink, sclera anicteric Pupils: Present: PERRL - Neck Neck exam general surgery: Present: supple, trachea midline. Absent: lymphadenopathy - Respiratory Respiratory exam: Present: CTAB. Absent: accessory muscle use, rales, rhonchi, wheezes - Cardiovascular Cardiovascular exam: Present: RRR, +S1, +S2. Absent: diastolic murmur, gallop, rubs, systolic murmur - GI/Abdominal GI/Abdominal exam: Present: firm, normal bowel sounds, soft, no peritoneal signs. Absent: distended, tenderness - Extremities Exam Extremities exam: Present: pedal edema, warm, radial pulses palpable and symmetrical. Absent: calf tenderness, cyanotic - Neurological Exam Neurological exam: Present: CN II-XII intact, no focal deficits. Absent: pronater drift, facial droop, speech deficit - Skin Skin exam: Present: dry, intact - Patient Status Disposition: Transfer Intermediate Care Fac Condition: Fair Functional capacity at discharge: uses cane/walker Overall status at discharge: patient is not back to baseline - Ambulatory Orders Ambulatory Orders: CT abd pelvis w iv no oral [CT] Time Frame: 10/17/17, Facility: [facility], Location: Radiology - Discharge Instructions Follow Up With: NONE,PCP [Primary Care Provider] - - Diet and Activity Activity: as per physical therapy Diet: advance to your usual diet
[2017-09-22] MEDS: Levofloxacin 750 MG/150 ML 750 MG/150 ML BAG IVPB SCH (17:18)
[2017-09-22 19:09] VITALS: BP 105/72
[2017-09-23 06:47] LABS: Alpha 2 Globulin (PEP) 0.41 g/dL (0.48-1.05); Beta Globulin (PEP) 0.51 g/dL (0.48-1.10)
[2017-09-23 07:41] LABS: IFE Reflexed IFE Done; Immunoglobulin G 2700 mg/dL (768-1632)
[2017-09-23 07:42] LABS: Immunoglobulin M 400 mg/dL (35-263)
[2017-09-23 07:43] LABS: Immunoglobulin A 822 mg/dL (68-408)
== END 2017-09-22 19:21 ==
LOC: EMEROO 22:05 → 3BNU 22:05
PROVIDERS: ADMIT Internal Medicine Nephrology; ATTEND Registered Nurse